=== PATIENT | male | born 1945 | race Caucasian/White ===

== ENCOUNTER → 2017-02-22 | Outpatient (CLI) | payer MEDICARE, OTHER ==
[2017-02-22 08:19] LABS: PLATELET COUNT, AUTOMATED 235 K/uL (150-450)
== END ==
LOC: LAB 07:49
PROVIDERS: ATTEND Nurse Practitioner Family
DX: Z79.899 Other long term (current) drug therapy (principal); E03.9 Hypothyroidism, unspecified; I10 Essential (primary) hypertension; N40.1 Benign prostatic hyperplasia with lower urinary tract symptoms
CPT/HCPCS: 36415; 82040; 82247; 82310; 82374; 82435; 82465; 82565; 82947; 83718; 84075; 84132; 84153; 84155; 84295; 84443; 84450; 84460; 84478; 84520; 85025

== ENCOUNTER → 2017-02-22 | Outpatient (CLI) | payer MEDICARE, OTHER | LOC: LAB 07:44 | PROVIDERS: ATTEND Internal Medicine Cardiovascular Disease | DX: I10 Essential (primary) hypertension (principal); E78.5 Hyperlipidemia, unspecified | CPT/HCPCS: 82465; 83718; 84478 ==

== ENCOUNTER → 2017-05-29 | Outpatient (CLI) | payer MEDICARE, OTHER | LOC: LAB 10:50 | PROVIDERS: ATTEND Nurse Practitioner Family | DX: E03.9 Hypothyroidism, unspecified (principal) | CPT/HCPCS: 84443 ==

== ENCOUNTER → 2017-05-29 | Outpatient (CLI) | payer MEDICARE, OTHER | LOC: LAB 10:48 | PROVIDERS: ATTEND Internal Medicine Cardiovascular Disease | DX: I10 Essential (primary) hypertension (principal) | CPT/HCPCS: 36415; 82310; 82374; 82435; 82565; 82947; 84132; 84295; 84520 ==

== ENCOUNTER → 2017-07-11 | Outpatient (CLI) | payer MEDICARE, OTHER ==
[2017-07-11 11:19] LABS: PLATELET COUNT, AUTOMATED 307 K/uL (150-450)
--- NOTE | 2017-07-11 11:28 | RADIOLOGY IMAGING REPORT ---
[place] [facility] [place] Rafiq Gunter : 1945 MR: [id number] V: [id number] EXAM DATE: ORDERING PHYSICIAN: ALIZE ALDRIDGE TECHNOLOGIST: Location: [facility] [place] Patient: Rafiq Gunter : 1945 Visit/Account:[id number] Date of Sevice: 07/11/2017 Exam type: CHEST PA AND LAT History: Cough and not feeling lump x1 month Comparison: None. Findings: There is mild hyperinflation lung canela with flattening the hemidiaphragms. There is no evidence of focal infiltrates, pleural effusions or overt pulmonary edema. There are sternotomy sutures present and a prosthetic cardiac valve. There are mild spondylotic changes of the thoracic spine IMPRESSION: 1. Mild hyperinflation lung canela though no evidence of acute consolidation Postsurgical changes from a sternotomy with cardiac valve Report Dictated By: Charmaine Long MD at 07/11/2017 11:23 AM Report E-Signed By: Charmaine Long MD at 07/11/2017 11:24 AM WSN:[email or web address]
== END ==
LOC: RAD 10:47
PROVIDERS: ATTEND Nurse Practitioner Family
DX: R91.8 Other nonspecific abnormal finding of lung field (principal); I10 Essential (primary) hypertension; R50.9 Fever, unspecified; R06.00 Dyspnea, unspecified; R53.83 Other fatigue
CPT/HCPCS: 36415; 71046; 82040; 82247; 82310; 82374; 82435; 82565; 82947; 84075; 84132; 84155; 84295; 84450; 84460; 84520; 85025

== ENCOUNTER 2017-07-16 17:48 | Emergency (ER) | payer MEDICARE, OTHER ==
--- NOTE | 2017-07-16 17:56 | ER Report ---
History and Physical Time Seen By MD: 17:56 HPI/ROS CHIEF COMPLAINT: Fever, chills, weakness, 5 weeks HISTORY OF PRESENT ILLNESS: 71-year-old male presents with chest pain radiating to his back and both arms for 45 minutes. Patient feels particularly ill. He' s been sick for 5 weeks. He's been seen by primary care in he's had 2 courses of antibiotics, which he finished the last one week ago. He's been having night sweats. Reports a 10 pound weight loss. He continues to have a cough of mostly clear sputum. He notes generalized body fatigued. He notes no leg swelling or calf pain. He notes no nausea or vomiting. He's had no diarrhea. Patient's past medical history significant for an aortic valve replacement in 2009. He's not had any problems with that. His cardiology recently started him on lisinopril in addition to his amlodipine to lower his blood pressure to the new stander but he became grossly hypotensive with a pressure in the 90s. His lisinopril was discontinued. Patient had a chest x-ray couple weeks ago here after he was sent in by primary care for evaluation of his lungs REVIEW OF SYSTEMS: Respiratory: As above Cardiovascular: As above Gastrointestinal: No vomiting, no abdominal pain. Musculoskeletal: No back pain. Allergies: Coded Allergies: No Known Drug Allergies (Unverified , 07/16/17) Home Meds Reported Medications Lisinopril (LISINOPRIL) 10 Mg Tablet, 10 MG PO QDAY, TAB 07/16/17 Clopidogrel Bisulfate (CLOPIDOGREL) 75 Mg Tablet, 1 TAB PO QDAY, TAB 07/16/17 Rosuvastatin Calcium (CRESTOR) 40 Mg Tablet, 40 MG PO QDAY 07/16/17 Fenofibric Acid (Choline) (FENOFIBRIC ACID) 135 Mg Capsule.dr, 145 MG 07/16/17 Amlodipine Besylate (AMLODIPINE BESYLATE) 10 Mg Tablet, 1 TAB PO QDAY, TAB 07/16/17 Metformin Hcl (METFORMIN HCL) 500 Mg Tablet, 1 TAB PO QDAY, TAB 07/16/17 Levothyroxine Sodium (LEVOTHYROXINE SODIUM) 100 Mcg Tablet, 150 MCG PO QDAY, TAB 07/16/17 Reviewed Nurses Notes: Yes Old Medical Records Reviewed: Yes Constitutional Vital Sign - Last 24 Hours 07/16/17 07/16/17 07/16/17/5/18 17:52 18:30 19:00 19:30 Temp 98.4 Pulse 84 84 80 76 Resp 16 12 14 16 B/P (MAP) 195/160 (172) 146/81 (102) 147/95 (112) Pulse Ox 94 94 96 96 07/16/17 07/16/17 07/16/17 07/16/17 20:00 20:30 21:30 21:35 Pulse 77 75 73 73 Resp 16 15 30 B/P (MAP) 150/87 (108) 136/66 (89) Pulse Ox 95 96 95 07/16/17 07/16/17 07/16/17 07/16/17 21:50 22:20 22:35 22:40 Pulse 73 72 71 69 Resp 23 27 28 10 Pulse Ox 95 96 96 96 07/16/17 07/16/17 07/16/17 07/16/17 22:55 23:00 23:15 23:30 Pulse 70 69 71 68 Resp 9 10 12 B/P (MAP) 131/85 (100) 110/94 (99) Pulse Ox 96 96 96 96 Physical Exam General Appearance: The patient is alert, has no immediate need for airway protection and no current signs of toxicity.. Moderate distress, steady pale appearing, skin warm and dry HEENT: Pupils equal and round no injection. Oropharynx without redness or exudate, mucous members are moist Respiratory: Chest is non tender, lungs are clear to auscultation. No wheezing or rails Cardiac: regular rate and rhythm Gastrointestinal: Abdomen is soft and non tender, no masses, bowel sounds normal. Musculoskeletal: Neck: Neck is supple and non tender. No JVD, no lymphadenopathy Extremities have full range of motion and are non tender. No edema, no calf tenderness Skin: No rashes or lesions. DIFFERENTIAL DIAGNOSIS: After history and physical exam differential diagnosis was considered for chest pain including but not limited to myocardial ischemia, pericarditis pulmonary embolus, chest wall pain, pleural inflammation and pulmonary infectious causes. Medical Decision Making Data Points Result Diagram: 07/16/17180807/16/171808 Laboratory Hematology Test 07/16/17 18:09 07/16/17 18:23 07/16/17 22:05 Red Blood Count 4.86 M/uL (4.00-5.60) Mean Corpuscular Volume 85.8 fL (80.0-96.0) Mean Corpuscular Hemoglobin 29.2 pg (26.0-33.0) Mean Corpuscular Hemoglobin Concent 34.0 g/dL (32.0-36.0) Red Cell Distribution Width 14.2 % (11.5-14.5) Mean Platelet Volume 6.4 fL (7.2-11.1) Neutrophils (%) (Auto) 81.3 % (39.4-72.5) Lymphocytes (%) (Auto) 12.3 % (17.6-49.6) Monocytes (%) (Auto) 5.4 % (4.1-12.4) Eosinophils (%) (Auto) 0.5 % (0.4-6.7) Basophils (%) (Auto) 0.5 % (0.3-1.4) Nucleated RBC Relative Count (auto) 0.0 /100WBC Neutrophils # (Auto) 7.9 K/uL (2.0-7.4) Lymphocytes # (Auto) 1.2 K/uL (1.3-3.6) Monocytes # (Auto) 0.5 K/uL (0.3-1.0) Eosinophils # (Auto) 0.0 K/uL (0.0-0.5) Basophils # (Auto) 0.1 K/uL (0.0-0.1) Nucleated RBC Absolute Count (auto) 0.00 K/uL Erythrocyte Sedimentation Rate 24 mm/HOUR (0-20) D-Dimer Quantitative (PE/DVT) 1.85 ug/ml (0-0.50) Sodium Level 140 mmol/L (137-145) Potassium Level 3.9 mmol/L (3.5-5.0) Chloride Level 102 mmol/L (98-107) Carbon Dioxide Level 22 mmol/L (22-30) Blood Urea Nitrogen 16 mg/dl (9-21) Creatinine 1.20 mg/dl (0.66-1.25) Glomerular Filtration Rate Calc > 60.0 Random Glucose 119 mg/dl (75-110) Calcium Level 9.4 mg/dl (8.4-10.2) Total Bilirubin 0.6 mg/dl (0.2-1.3) Aspartate Amino Transf (AST/SGOT) 36 U/L (0-35) Alanine Aminotransferase (ALT/SGPT) 58 U/L (0-56) Alkaline Phosphatase 90 U/L (0-126) C-Reactive Protein 3.1 mg/dl (<1.0) B-Type Natriuretic Peptide 446 pg/ml (0-100) Total Protein 7.8 gm/dl (6.3-8.2) Albumin 4.0 g/dl (3.5-5.0) Urine Color Yellow Urine Clarity Clear Urine pH 5.0 pH (4.8-9.5) Urine Specific [place] 1.017 Urine Protein Negative mg/dL (NEGATIVE) Urine Glucose (UA) Negative mg/dL (NEGATIVE) Urine Ketones Negative mg/dL (NEGATIVE) Urine Blood Negative (NEGATIVE) Urine Nitrite Negative (NEGATIVE) Urine Bilirubin Negative (NEGATIVE) Urine Urobilinogen Negative mg/dL (0.2-1.9) Urine Leukocyte Esterase Negative (NEGATIVE) Urine RBC 1 /HPF (0-2/HPF) Urine WBC 1 /HPF (0-5/HPF) Urine Squamous Epithelial Cells Few /LPF (</=FEW) Urine Bacteria Negative /HPF (NONE-FEW) Urine Hyaline Casts Few /LPF (NONE-FEW) Urine Mucus Few /HPF (NONE-FEW) Troponin I 0.090 ng/ml Chemistry Test 07/16/17 18:09 07/16/17 18:23 07/16/17 22:05 White Blood Count 9.7 k/uL (4.5-11.0) Red Blood Count 4.86 M/uL (4.00-5.60) Hemoglobin 14.2 g/dL (14.0-18.0) Hematocrit 41.7 % (42.0-52.0) Mean Corpuscular Volume 85.8 fL (80.0-96.0) Mean Corpuscular Hemoglobin 29.2 pg (26.0-33.0) Mean Corpuscular Hemoglobin Concent 34.0 g/dL (32.0-36.0) Red Cell Distribution Width 14.2 % (11.5-14.5) Platelet Count 332 K/uL (150-450) Mean Platelet Volume 6.4 fL (7.2-11.1) Neutrophils (%) (Auto) 81.3 % (39.4-72.5) Lymphocytes (%) (Auto) 12.3 % (17.6-49.6) Monocytes (%) (Auto) 5.4 % (4.1-12.4) Eosinophils (%) (Auto) 0.5 % (0.4-6.7) Basophils (%) (Auto) 0.5 % (0.3-1.4) Nucleated RBC Relative Count (auto) 0.0 /100WBC Neutrophils # (Auto) 7.9 K/uL (2.0-7.4) Lymphocytes # (Auto) 1.2 K/uL (1.3-3.6) Monocytes # (Auto) 0.5 K/uL (0.3-1.0) Eosinophils # (Auto) 0.0 K/uL (0.0-0.5) Basophils # (Auto) 0.1 K/uL (0.0-0.1) Nucleated RBC Absolute Count (auto) 0.00 K/uL Erythrocyte Sedimentation Rate 24 mm/HOUR (0-20) D-Dimer Quantitative (PE/DVT) 1.85 ug/ml (0-0.50) Glomerular Filtration Rate Calc > 60.0 Calcium Level 9.4 mg/dl (8.4-10.2) Total Bilirubin 0.6 mg/dl (0.2-1.3) Aspartate Amino Transf (AST/SGOT) 36 U/L (0-35) Alanine Aminotransferase (ALT/SGPT) 58 U/L (0-56) Alkaline Phosphatase 90 U/L (0-126) C-Reactive Protein 3.1 mg/dl (<1.0) B-Type Natriuretic Peptide 446 pg/ml (0-100) Total Protein 7.8 gm/dl (6.3-8.2) Albumin 4.0 g/dl (3.5-5.0) Urine Color Yellow Urine Clarity Clear Urine pH 5.0 pH (4.8-9.5) Urine Specific [place] 1.017 Urine Protein Negative mg/dL (NEGATIVE) Urine Glucose (UA) Negative mg/dL (NEGATIVE) Urine Ketones Negative mg/dL (NEGATIVE) Urine Blood Negative (NEGATIVE) Urine Nitrite Negative (NEGATIVE) Urine Bilirubin Negative (NEGATIVE) Urine Urobilinogen Negative mg/dL (0.2-1.9) Urine Leukocyte Esterase Negative (NEGATIVE) Urine RBC 1 /HPF (0-2/HPF) Urine WBC 1 /HPF (0-5/HPF) Urine Squamous Epithelial Cells Few /LPF (</=FEW) Urine Bacteria Negative /HPF (NONE-FEW) Urine Hyaline Casts Few /LPF (NONE-FEW) Urine Mucus Few /HPF (NONE-FEW) Troponin I 0.090 ng/ml Coagulation Test 07/16/17 18:09 D-Dimer Quantitative (PE/DVT) 1.85 ug/ml Urinalysis Test 07/16/17 18:23 Urine Color Yellow Urine Clarity Clear Urine pH 5.0 pH (4.8-9.5) Urine Specific [place] 1.017 Urine Protein Negative mg/dL (NEGATIVE) Urine Glucose (UA) Negative mg/dL (NEGATIVE) Urine Ketones Negative mg/dL (NEGATIVE) Urine Blood Negative (NEGATIVE) Urine Nitrite Negative (NEGATIVE) Urine Bilirubin Negative (NEGATIVE) Urine Urobilinogen Negative mg/dL (0.2-1.9) Urine Leukocyte Esterase Negative (NEGATIVE) Urine RBC 1 /HPF (0-2/HPF) Urine WBC 1 /HPF (0-5/HPF) Urine Squamous Epithelial Cells Few /LPF (</=FEW) Urine Bacteria Negative /HPF (NONE-FEW) Urine Hyaline Casts Few /LPF (NONE-FEW) Urine Mucus Few /HPF (NONE-FEW) EKG/Imaging EKG Interpretation 12 lead EK Rhythm: Normal sinus rhythm [place]: normal QRS: normal ST segments: normal, no old for comparison, no evidence of ischemia or dysrhythmia, diffuse nonspecific ST-T wave abnormality 12 lead EK Rhythm: normal sinus rhythm [place]: normal QRS: normal ST segments: normal, resolution of the ST abnormality from noted in the 1st EKG Imaging Results: CT scan of the CTA pulmonary angiogram and CT abdomen and pelvis with contrast was obtained. The results of the study are Examination: CT chest pulmonary angiogram and CT abdomen and pelvis with contrast Comparison: None. History: fever night sweats wt loss elevated d-dimer Procedure: Pulmonary arterial phase imaging of the chest followed by routine venous phase imaging of the abdomen and pelvis with 75 mL intravenous Isovue 370. Reconstruction of the source data set includes multiplanar 2D in the sagittal and coronal planes, and 3D reconstructed coronal slab MIP series. One of the following dose optimization techniques was utilized in the performance of this exam: Automated exposure control; adjustment of the mA and/ or kV according to the patient's size; or use of an iterative reconstruction technique. Specific details can be referenced in the facility's radiology CT exam operational policy. Findings: CT pulmonary angiogram: Pulmonary vasculature: Adequate quality contrast bolus for the diagnosis of pulmonary embolism. No pulmonary embolism. Main pulmonary artery size is normal. Cardiac and mediastinum: Cardiac chamber size is normal. No pericardial effusion. Mild coronary calcifications. Aortic valve replacement. Borderline dilated 4.0 cm ascending thoracic aorta. No thoracic lymph node enlargement. Lungs and pleura: Benign-appearing 6 mm fissural nodule along the right minor fissure. No consolidation or suspicious nodule is otherwise identified. No pneumothorax, edema, or effusion. Airways: Negative. Diaphragm: Negative. CT abdomen and pelvis: Liver: Negative. Gallbladder and biliary system: Negative Spleen: Negative. Pancreas: Negative. Adrenal glands: Negative. Kidneys and bladder: No renal mass or evidence of an obstructive uropathy. Urinary bladder is unremarkable. Vessels: Moderate aortoiliac atherosclerosis. No abdominal aortic aneurysm. Portal venous system and IVC are within normal limits. Bowel and mesentery: Tiny hiatal hernia. No gastric distention. No small bowel obstruction or inflammation. Appendix is unremarkable. Small amount stool in the colon. There are a few diverticula along the left hemicolon. No bowel or mesenteric inflammation. Pelvic organs: Mildly enlarged and heterogeneous prostate. Lymph nodes: No adenopathy. Free air/free fluid: None. Abdominal wall: Tiny fat-containing umbilical hernia. Small bilateral fat- containing inguinal hernias. No acute findings. Osseous structures: Minimal degenerative change in the thoracolumbar spine. Sternotomy. No acute findings. IMPRESSION: 1. No pulmonary embolism or evidence of acute cardiopulmonary disease. 2. No findings of acute disease in the abdomen or pelvis. 3. Nonacute findings as described above. The study was read by the radiologist. I viewed the images myself on the PACS system. ED Course/Re-evaluation Clinical Indication for ER IV: Hydration ED Course Patient was admitted to an examination room. H&P was done. The differential diagnoses was considered. On clinical examination. Patient is acute onset of substernal chest pain radiating to his back and bilateral arms. His initial EKG shows nonspecific T waves. There is no evidence of gross ischemia. Patient has no previous EKGs for comparison. Patient's other significant history. He is type II diabetes, hyperlipidemia and aortic valve replacement in 2009. Patient describes 5 weeks of illness with fever and chills. He said night sweats and weight loss. He was seen by his primary care. He had a chest x-ray and 07/11/17 which was unremarkable. Patient received 2 courses of antibiotics last which he finished approximately one week ago. Patient's initial troponin was in the middle of the indeterminate zone. His troponin was elevated, so a CT pulmonary angiogram was ordered. Shortly a abdomen and pelvis with runoff contrast were performed to rule out occult malignancy as the cause of his night sweats. Blood cultures were drawn. His sedimentation rate is mildly elevated at 24. His CRP is mildly elevated as well. His white count was normal, but he is a left shift on his differential. CTA pulmonary angiogram and abdomen and pelvis were unremarkable for acute pathologic findings. A PPD was placed on his arm. Repeat 4 hour troponin, has doubled from 0.04 0.090. 07/16/2017 10:53:30 pm case was discussed with hospitalist, Dr. Chauhan at [facility] who accepts the patient. Her facility to cardiac floor bed. Decision to Disposition Date: Jul 16, 2017 Decision to Disposition Time: 22:44 Depart Departure Latest Vital Signs Vital Signs Date Time Temp Pulse Resp B/P (MAP) Pulse Ox O2 Delivery O2 Flow Rate FiO2 07/16/17 23:30 68 12 110/94 (99) 96 07/16/17 17:52 98.4 Impression: Primary Impression: Acute coronary syndrome Additional Impressions: Elevated troponin H/O aortic valve replacement Elevated d-dimer Type II diabetes mellitus Hyperlipidemia Condition: Improved Disposition: XFER TO ACUTE CARE HOSPITAL Referrals: ALIZE ALDRIDGE APRN (PCP) Problem Qualifiers Additional Impressions: Type II diabetes mellitus Diabetes mellitus rn long term care insulin use: without rn long term care use Diabetes mellitus complication status: without complication Qualified Codes: E11.9 - Type 2 diabetes mellitus without complications Hyperlipidemia Hyperlipidemia type: unspecified Qualified Codes: E78.5 - Hyperlipidemia, unspecified LINCOLN DELGADO DO Jul 16, 2017 17:56
[2017-07-16] MEDS ORDERED: TUBERCULIN PURIF PROT DERIV ID ONE (18:05)
[2017-07-16] MEDS ORDERED: LEVO-3 PO (18:07)
[2017-07-16] MEDS ORDERED: METF-411 PO (18:08)
[2017-07-16] MEDS ORDERED: LISI-362 PO (18:12)
[2017-07-16] MEDS ORDERED: ROSU40TA18 PO (18:12)
[2017-07-16] MEDS ORDERED: FENO135C (18:12)
[2017-07-16] MEDS ORDERED: CLOP75TA PO (18:12)
[2017-07-16] MEDS ORDERED: AMLO-99 PO (18:12)
[2017-07-16 18:26] LABS: PLATELET COUNT, AUTOMATED 332 K/uL (150-450)
[2017-07-16] MEDS ORDERED: KETOROLAC 30 MG/ML VIAL IVP ONE (18:40)
[2017-07-16] MEDS ORDERED: ONDANSETRON 4 MG/2 ML VIAL IVP ONE (18:40)
[2017-07-16] MEDS ORDERED: ASPIRIN 81 MG CHEW PO ONE (18:40)
[2017-07-16] MEDS ORDERED: fentaNYL CITR 100 MCG/2 ML AMP IVP ONE (18:40)
[2017-07-16] MEDS ORDERED: NS 0.9% 25 ML BAG 50 ML ONE (19:03)
[2017-07-16] MEDS ORDERED: IOPAMIDOL 76% 75 ML INFUS BTL 75 ML ONE (19:03)
--- NOTE | 2017-07-16 20:06 | RADIOLOGY IMAGING REPORT ---
[place] [facility] [place] Rafiq Gunter : 1945 MR: [id number] V: [id number] EXAM DATE: ORDERING PHYSICIAN: LINCOLN DELGADO TECHNOLOGIST: Location: [facility] Patient: Rafiq Gunter : 1945 Visit/Account:[id number] Date of Sevice: 07/16/2017 Examination: CT chest pulmonary angiogram and CT abdomen and pelvis with contrast Comparison: None. History: fever night sweats wt loss elevated d-dimer Procedure: Pulmonary arterial phase imaging of the chest followed by routine venous phase imaging of the abdomen and pelvis with 75 mL intravenous Isovue 370. Reconstruction of the source data set inclu yenny multiplanar 2D in the sagittal and coronal planes, and 3D reconstructed coronal slab MIP series. One of the following dose optimization techniques was utilized in the performance of this exam: Autom ated exposure control; adjustment of the mA and/or kV according to the patient's size; or use of an i terative reconstruction technique. Specific details can be referenced in the facility's radiology C T exam operational policy. Findings: CT pulmonary angiogram: Pulmonary vasculature: Adequate quality contrast bolus for the diagnosis of pulmonary embolism. No p ulmonary embolism. Main pulmonary artery size is normal. Cardiac and mediastinum: Cardiac chamber size is normal. No pericardial effusion. Mild coronary calci fications. Aortic valve replacement. Borderline dilated 4.0 cm ascending thoracic aorta. No thoracic lymph node enlargement. Lungs and pleura: Benign-appearing 6 mm fissural nodule along the right minor fissure. No consolidati on or suspicious nodule is otherwise identified. No pneumothorax, edema, or effusion. Airways: Negative. Diaphragm: Negative. CT abdomen and pelvis: Liver: Negative. Gallbladder and biliary system: Negative Spleen: Negative. Pancreas: Negative. Adrenal glands: Negative. Kidneys and bladder: No renal mass or evidence of an obstructive uropathy. Urinary bladder is unrema rkable. Vessels: Moderate aortoiliac atherosclerosis. No abdominal aortic aneurysm. Portal venous system and IVC are within normal limits. Bowel and mesentery: Tiny hiatal hernia. No gastric distention. No small bowel obstruction or inflamm ation. Appendix is unremarkable. Small amount stool in the colon. There are a few diverticula along t he left hemicolon. No bowel or mesenteric inflammation. Pelvic organs: Mildly enlarged and heterogeneous prostate. Lymph nodes: No adenopathy. Free air/free fluid: None. Abdominal wall: Tiny fat-containing umbilical hernia. Small bilateral fat-containing inguinal hernias . No acute findings. Osseous structures: Minimal degenerative change in the thoracolumbar spine. Sternotomy. No acute find ings. IMPRESSION: 1. No pulmonary embolism or evidence of acute cardiopulmonary disease. 2. No findings of acute disease in the abdomen or pelvis. 3. Nonacute findings as described above. Report Dictated By: Minesh Mays MD at 07/16/2017 7:48 PM Report E-Signed By: Minesh Mays MD at 07/16/2017 8:04 PM WSN:[id number]
--- NOTE | 2017-07-16 20:07 | RADIOLOGY IMAGING REPORT ---
FACILITY: [facility] - [place] PATIENT NAME: Rafiq Gunter : 1945 MR: [id number] V: [id number] EXAM DATE: ORDERING PHYSICIAN: LINCOLN DELGADO TECHNOLOGIST: Location: [facility] - [place] Patient: Rafiq Gunter : 1945 Visit/Account:[id number] Date of Sevice: 07/16/2017 Examination: CT chest pulmonary angiogram and CT abdomen and pelvis with contrast Comparison: None. History: fever night sweats wt loss elevated d-dimer Procedure: Pulmonary arterial phase imaging of the chest followed by routine venous phase imaging of the abdomen and pelvis with 75 mL intravenous Isovue 370. Reconstruction of the source data set inclu yenny multiplanar 2D in the sagittal and coronal planes, and 3D reconstructed coronal slab MIP series. One of the following dose optimization techniques was utilized in the performance of this exam: Autom ated exposure control; adjustment of the mA and/or kV according to the patient's size; or use of an i terative reconstruction technique. Specific details can be referenced in the facility's radiology C T exam operational policy. Findings: CT pulmonary angiogram: Pulmonary vasculature: Adequate quality contrast bolus for the diagnosis of pulmonary embolism. No p ulmonary embolism. Main pulmonary artery size is normal. Cardiac and mediastinum: Cardiac chamber size is normal. No pericardial effusion. Mild coronary calci fications. Aortic valve replacement. Borderline dilated 4.0 cm ascending thoracic aorta. No thoracic lymph node enlargement. Lungs and pleura: Benign-appearing 6 mm fissural nodule along the right minor fissure. No consolidati on or suspicious nodule is otherwise identified. No pneumothorax, edema, or effusion. Airways: Negative. Diaphragm: Negative. CT abdomen and pelvis: Liver: Negative. Gallbladder and biliary system: Negative Spleen: Negative. Pancreas: Negative. Adrenal glands: Negative. Kidneys and bladder: No renal mass or evidence of an obstructive uropathy. Urinary bladder is unrema rkable. Vessels: Moderate aortoiliac atherosclerosis. No abdominal aortic aneurysm. Portal venous system and IVC are within normal limits. Bowel and mesentery: Tiny hiatal hernia. No gastric distention. No small bowel obstruction or inflamm ation. Appendix is unremarkable. Small amount stool in the colon. There are a few diverticula along t he left hemicolon. No bowel or mesenteric inflammation. Pelvic organs: Mildly enlarged and heterogeneous prostate. Lymph nodes: No adenopathy. Free air/free fluid: None. Abdominal wall: Tiny fat-containing umbilical hernia. Small bilateral fat-containing inguinal hernias . No acute findings. Osseous structures: Minimal degenerative change in the thoracolumbar spine. Sternotomy. No acute find ings. IMPRESSION: 1. No pulmonary embolism or evidence of acute cardiopulmonary disease. 2. No findings of acute disease in the abdomen or pelvis. 3. Nonacute findings as described above. Report Dictated By: Minesh Mays MD at 07/16/2017 7:48 PM Report E-Signed By: Minesh Mays MD at 07/16/2017 8:04 PM [id number]
[2017-07-16] MEDS ORDERED: HYDROmorphone* 1 MG/ML 1 MG/ML ML IVP ONE (20:25)
[2017-07-16 23:30] VITALS: BP 110/94
--- NOTE | 2017-07-17 01:16 | EKG ---
FACILITY: [facility] - [place] PATIENT NAME: KEREN ANDREA : [id number] MR: [id number] V: [id number] EXAM DATE: ORDERING PHYSICIAN: LINCOLN DELGADO TECHNOLOGIST: Test Reason : Blood Pressure : / mmHG Vent. Rate : 085 BPM Atrial Rate : 085 BPM P-R Int : 180 ms QRS Dur : 078 ms QT Int : 350 ms P-R-T Axes : 050 059 081 degrees QTc Int : 416 ms Normal sinus rhythm Nonspecific ST abnormality Abnormal ECG No previous ECGs available Confirmed by THEE RHOADES ([id number]) on 07/17/2017 6:30:29 AM Referred By: Confirmed By:THEE RHOADES
--- NOTE | 2017-07-17 01:16 | EKG ---
FACILITY: [facility] PATIENT NAME: KEREN ANDREA : [id number] MR: [id number] V: [id number] EXAM DATE: ORDERING PHYSICIAN: LINCOLN DELGADO TECHNOLOGIST: MARCIANO Hughes Reason : REPEAT Blood Pressure : / mmHG Vent. Rate : 070 BPM Atrial Rate : 070 BPM P-R Int : 178 ms QRS Dur : 086 ms QT Int : 440 ms P-R-T Axes : 043 034 062 degrees QTc Int : 475 ms Normal sinus rhythm Normal ECG When compared with ECG of 16-JUL-2017 17:58, QT has lengthened Confirmed by THEE RHOADES ([id number]) on 07/17/2017 6:30:36 AM Referred By: Confirmed By:THEE RHOADES
== END 2017-07-16 23:45 | disposition short-term general hospital (02) ==
LOC: ER 18:19
DX: I24.9 Acute ischemic heart disease, unspecified (principal); R79.89 Other specified abnormal findings of blood chemistry; D68.9 Coagulation defect, unspecified; E11.9 Type 2 diabetes mellitus without complications; E78.5 Hyperlipidemia, unspecified; R05 Cough; Z95.2 Presence of prosthetic heart valve
CPT/HCPCS: 36415; 71275; 74177; 81001; 83880; 84484; 85025; 85379; 85651; 86140; 86580; 87040; 93005; 96374; 96375; 99284; A9270; J1170; J1885; J2405; J3010; Q9967; 82040; 82247; 82310; 82374; 82435; 82565; 82947; 84075; 84132; 84155; 84295; 84450; 84460; 84520

== ENCOUNTER → 2017-07-16 | Outpatient (CLI) | payer MEDICARE, OTHER ==
[~2017-07-16] MED LIST: AMLO-99 PO; CLOP75TA PO; FENO135C; LEVO-3 PO; LISI-362 PO; METF-411 PO; METO50TA19 PO; ROSU40TA18 PO
== END ==
LOC: AMB 23:30
PROVIDERS: ATTEND Nurse Practitioner
DX: I21.4 Non-ST elevation (NSTEMI) myocardial infarction (principal); I24.9 Acute ischemic heart disease, unspecified; R79.89 Other specified abnormal findings of blood chemistry; E11.9 Type 2 diabetes mellitus without complications; I10 Essential (primary) hypertension
CPT/HCPCS: A0425; A0426; A0888

== ENCOUNTER 2017-07-19 09:50 | Emergency (ER) | payer MEDICARE, OTHER ==
[~2017-07-19 09:50] MED LIST changes: -METO50TA19 PO
--- NOTE | 2017-07-19 09:54 | ER Report ---
History and Physical Time Seen By MD: 09:53 HPI/ROS This is a 71-year-old male with a history of hypertension and diabetes. Also with a history of alcohol use. He presents to the emergency department today with ongoing relapsing fevers for the past 4-5 weeks. He was treated with 2 antibiotics at the onset of his illness when his symptoms continued he presented to the emergency department approximately one week ago. At that time he was found to have an NSTEMI and was transferred to the [facility]. While admitted he had a full cardiac workup including a cardiac catheterization, and an echocardiogram. He also had an extensive fever workup to include an infectious disease consult as well as a full body CT scan to evaluate for malignancy. His workup at [facility] was essentially negative. He continued to have generalized weakness, night sweats, lack of appetite, and fevers. One blood culture bottle taken from the emergency department here days ago grew gram-positive cocci in clusters. The multiple blood cultures taken at [facility] have not grown anything to date. He no longer has chest pain, but continues to have fevers weakness and weight loss. 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 Remainder of the 14 system rev: Yes Allergies: Coded Allergies: No Known Drug Allergies (Unverified , 07/16/17) Home Meds Reported Medications Metoprolol Succinate (METOPROLOL SUCCINATE) 50 Mg Tab.er.24h, 1 TAB PO QDAY, TAB 07/19/17 Clopidogrel Bisulfate (CLOPIDOGREL) 75 Mg Tablet, 1 TAB PO QDAY, TAB 07/16/17 Rosuvastatin Calcium (CRESTOR) 40 Mg Tablet, 40 MG PO QDAY 07/16/17 Fenofibric Acid (Choline) (FENOFIBRIC ACID) 135 Mg Capsule.dr, 145 MG 07/16/17 Amlodipine Besylate (AMLODIPINE BESYLATE) 10 Mg Tablet, 1 TAB PO QDAY, TAB 07/16/17 Metformin Hcl (METFORMIN HCL) 500 Mg Tablet, 1 TAB PO QDAY, TAB 07/16/17 Levothyroxine Sodium (LEVOTHYROXINE SODIUM) 100 Mcg Tablet, 150 MCG PO QDAY, TAB 07/16/17 Discontinued Reported Medications Lisinopril (LISINOPRIL) 10 Mg Tablet, 10 MG PO QDAY, TAB 07/16/17 Reviewed Nurses Notes: Yes Old Medical Records Reviewed: Yes Hx Smoking: No Smoking Status: Never Smoker Hx Substance Use Disorder: No Family History of: HTN, Diabetes, Cardiac Constitutional Vital Sign - Last 24 Hours 07/19/17 07/19/17 07/19/17 07/19/17 09:50 09:54 09:55 09:58 Temp 98.6 Pulse ??? 91 Resp 16 B/P (MAP) 111/70 (84) 111/70 99/70 (80) Pulse Ox 94 O2 Delivery Room Air 07/19/17 07/19/17 07/19/17 07/19/17 10:00 10:05 10:12 10:15 Pulse 90 Resp 21 B/P (MAP) 95/70 (78) 98/70 (79) 99/63 (75) Pulse Ox 94 07/19/17 07/19/17 07/19/17 07/19/17 10:20 10:30 10:35 10:45 Pulse 93 88 Resp 14 20 B/P (MAP) 99/65 (76) 119/72 (88) Pulse Ox 93 93 07/19/17 07/19/17 07/19/17 07/19/17 10:50 11:00 11:05 11:15 Pulse 79 82 Resp 20 6 B/P (MAP) ???/??? (1665) 119/77 (91) Pulse Ox 96 93 07/19/17 07/19/17 07/19/17 07/19/17 11:20 11:30 11:35 11:45 Pulse 82 83 Resp 19 21 B/P (MAP) 120/77 (91) 120/80 (93) Pulse Ox 94 94 07/19/17 07/19/17 07/19/17 07/19/17 11:50 12:00 12:05 12:15 Pulse 76 82 Resp 17 23 B/P (MAP) 128/84 (99) 114/65 (81) Pulse Ox 93 95 07/19/17 07/19/17 07/19/17 07/19/17 12:20 12:30 12:35 12:45 Pulse 83 85 Resp 20 21 B/P (MAP) 114/73 (87) 120/84 (96) Pulse Ox 97 94 07/19/17 07/19/17 07/19/17 07/19/17 13:00 13:05 13:15 13:20 Pulse 85 79 Resp 12 20 B/P (MAP) 114/70 (85) 120/82 (95) Pulse Ox 96 92 07/19/17 07/19/17 07/19/17 07/19/17 13:30 13:35 13:45 13:50 Temp 101.5 Pulse 87 Resp 24 B/P (MAP) 112/71 (85) 107/64 (78) Pulse Ox 92 07/19/17 07/19/17 07/19/17 07/19/17 13:50 14:00 14:05 14:15 Pulse 87 90 Resp 14 16 B/P (MAP) 107/70 (82) 117/70 (86) Pulse Ox 94 93 07/19/17 07/19/17 07/19/17 07/19/17 14:20 14:30 14:33 14:35 Temp 98.9 Pulse 89 92 Resp 23 20 B/P (MAP) 118/72 (87) Pulse Ox 96 95 07/19/17 07/19/17 07/19/17 07/19/17 14:45 14:50 15:00 15:05 Pulse 93 86 Resp 24 11 B/P (MAP) 101/66 (78) 116/74 (88) Pulse Ox 94 88 07/19/17 07/19/17 07/19/17 07/19/17 15:11 15:15 15:20 15:30 Temp 100.7 Pulse 85 Resp 14 B/P (MAP) 112/73 (86) 114/63 (80) Pulse Ox 92 07/19/17 07/19/17 07/19/17 15:35 15:45 16:20 Temp 98.9 Pulse 85 Resp 23 B/P (MAP) 110/68 (82) Pulse Ox 92 Intake and Output 07/19/17 07/19/17 07/20/17 14:59 22:59 06:59 Intake Total 1000 ml Balance 1000 ml Physical Exam General Appearance: The patient is alert, has no immediate need for airway protection and no current signs of toxicity. Eyes: Pupils equal and round no injection. Respiratory: Chest is non tender, lungs are clear to auscultation. Cardiac: regular rate and rhythm Gastrointestinal: Abdomen is soft and non tender, no masses, bowel sounds normal. Musculoskeletal: Neck: Neck is supple and non tender. Extremities have full range of motion and are non tender. Skin: No rashes or lesions. DIFFERENTIAL DIAGNOSIS: After history and physical exam differential diagnosis was considered for adult fever including but not limited to viral syndromes including influenza, urinary tract infection, pneumonia and sepsis. Medical Decision Making Data Points Result Diagram: 07/19/17 1613 07/19/17 1111 Laboratory Hematology Test 07/19/17 11:11 07/19/17 12:38 07/19/17 12:47 07/19/17 16:13 Neutrophils (%) (Auto) 86.5 % (39.4-72.5) Lymphocytes (%) (Auto) 7.6 % (17.6-49.6) Monocytes (%) (Auto) 5.7 % (4.1-12.4) Eosinophils (%) (Auto) 0.0 % (0.4-6.7) Basophils (%) (Auto) 0.2 % (0.3-1.4) Nucleated RBC Relative Count (auto) 0.0 /100WBC Neutrophils # (Auto) 8.7 K/uL (2.0-7.4) Lymphocytes # (Auto) 0.8 K/uL (1.3-3.6) Monocytes # (Auto) 0.6 K/uL (0.3-1.0) Eosinophils # (Auto) 0.0 K/uL (0.0-0.5) Basophils # (Auto) 0.0 K/uL (0.0-0.1) Nucleated RBC Absolute Count (auto) 0.00 K/uL Erythrocyte Sedimentation Rate 16 mm/HOUR (0-20) Sodium Level 136 mmol/L (137-145) Potassium Level 3.9 mmol/L (3.5-5.0) Chloride Level 101 mmol/L (98-107) Carbon Dioxide Level 23 mmol/L (22-30) Blood Urea Nitrogen 15 mg/dl (9-21) Creatinine 1.20 mg/dl (0.66-1.25) Glomerular Filtration Rate Calc > 60.0 Random Glucose 128 mg/dl (75-110) Lactate 1.9 mmol/L (0.7-2.1) Calcium Level 8.7 mg/dl (8.4-10.2) Total Bilirubin 0.5 mg/dl (0.2-1.3) Aspartate Amino Transf (AST/SGOT) 38 U/L (0-35) Alanine Aminotransferase (ALT/SGPT) 39 U/L (0-56) Alkaline Phosphatase 63 U/L (0-126) C-Reactive Protein 5.6 mg/dl (<1.0) Total Protein 6.8 gm/dl (6.3-8.2) Albumin 3.3 g/dl (3.5-5.0) CSF Appearance Clear (CLEAR) CSF Color Colorless (COLORLESS) CSF WBC 9 /mm3 (0-5) CSF RBC 2 /mm3 CSF Glucose 60 mg/dl CSF Total Protein 38 mg/dl (15-50) Urine Color Yellow Urine Clarity Clear Urine pH 6.0 pH (4.8-9.5) Urine Specific [place] 1.017 Urine Protein Negative mg/dL (NEGATIVE) Urine Glucose (UA) Negative mg/dL (NEGATIVE) Urine Ketones Negative mg/dL (NEGATIVE) Urine Blood Negative (NEGATIVE) Urine Nitrite Negative (NEGATIVE) Urine Bilirubin Negative (NEGATIVE) Urine Urobilinogen 2.0 mg/dL (0.2-1.9) Urine Leukocyte Esterase Negative (NEGATIVE) Urine RBC 3 /HPF (0-2/HPF) Urine WBC 1 /HPF (0-5/HPF) Urine Squamous Epithelial Cells None /LPF (</=FEW) Urine Bacteria Negative /HPF (NONE-FEW) Urine Hyaline Casts Few /LPF (NONE-FEW) Urine Mucus Few /HPF (NONE-FEW) Red Blood Count 4.00 M/uL (4.00-5.60) Mean Corpuscular Volume 84.6 fL (80.0-96.0) Mean Corpuscular Hemoglobin 29.9 pg (26.0-33.0) Mean Corpuscular Hemoglobin Concent 35.3 g/dL (32.0-36.0) Red Cell Distribution Width 14.2 % (11.5-14.5) Mean Platelet Volume 6.2 fL (7.2-11.1) Neutrophils % (Manual) 88 % (39.4-72.5) Lymphocytes % (Manual) 9 % (17.6-49.6) Monocytes % (Manual) 3 % (4.1-12.4) Eosinophils % (Manual) 0 % (0.4-6.7) Basophils % (Manual) 0 % (0.3-1.4) Chemistry Test 07/19/17 11:11 07/19/17 12:38 07/19/17 12:47 07/19/17 16:13 Neutrophils (%) (Auto) 86.5 % (39.4-72.5) Lymphocytes (%) (Auto) 7.6 % (17.6-49.6) Monocytes (%) (Auto) 5.7 % (4.1-12.4) Eosinophils (%) (Auto) 0.0 % (0.4-6.7) Basophils (%) (Auto) 0.2 % (0.3-1.4) Nucleated RBC Relative Count (auto) 0.0 /100WBC Neutrophils # (Auto) 8.7 K/uL (2.0-7.4) Lymphocytes # (Auto) 0.8 K/uL (1.3-3.6) Monocytes # (Auto) 0.6 K/uL (0.3-1.0) Eosinophils # (Auto) 0.0 K/uL (0.0-0.5) Basophils # (Auto) 0.0 K/uL (0.0-0.1) Nucleated RBC Absolute Count (auto) 0.00 K/uL Erythrocyte Sedimentation Rate 16 mm/HOUR (0-20) Glomerular Filtration Rate Calc > 60.0 Lactate 1.9 mmol/L (0.7-2.1) Calcium Level 8.7 mg/dl (8.4-10.2) Total Bilirubin 0.5 mg/dl (0.2-1.3) Aspartate Amino Transf (AST/SGOT) 38 U/L (0-35) Alanine Aminotransferase (ALT/SGPT) 39 U/L (0-56) Alkaline Phosphatase 63 U/L (0-126) C-Reactive Protein 5.6 mg/dl (<1.0) Total Protein 6.8 gm/dl (6.3-8.2) Albumin 3.3 g/dl (3.5-5.0) CSF Appearance Clear (CLEAR) CSF Color Colorless (COLORLESS) CSF WBC 9 /mm3 (0-5) CSF RBC 2 /mm3 CSF Glucose 60 mg/dl CSF Total Protein 38 mg/dl (15-50) Urine Color Yellow Urine Clarity Clear Urine pH 6.0 pH (4.8-9.5) Urine Specific [place] 1.017 Urine Protein Negative mg/dL (NEGATIVE) Urine Glucose (UA) Negative mg/dL (NEGATIVE) Urine Ketones Negative mg/dL (NEGATIVE) Urine Blood Negative (NEGATIVE) Urine Nitrite Negative (NEGATIVE) Urine Bilirubin Negative (NEGATIVE) Urine Urobilinogen 2.0 mg/dL (0.2-1.9) Urine Leukocyte Esterase Negative (NEGATIVE) Urine RBC 3 /HPF (0-2/HPF) Urine WBC 1 /HPF (0-5/HPF) Urine Squamous Epithelial Cells None /LPF (</=FEW) Urine Bacteria Negative /HPF (NONE-FEW) Urine Hyaline Casts Few /LPF (NONE-FEW) Urine Mucus Few /HPF (NONE-FEW) White Blood Count 8.4 k/uL (4.5-11.0) Red Blood Count 4.00 M/uL (4.00-5.60) Hemoglobin 11.9 g/dL (14.0-18.0) Hematocrit 33.8 % (42.0-52.0) Mean Corpuscular Volume 84.6 fL (80.0-96.0) Mean Corpuscular Hemoglobin 29.9 pg (26.0-33.0) Mean Corpuscular Hemoglobin Concent 35.3 g/dL (32.0-36.0) Red Cell Distribution Width 14.2 % (11.5-14.5) Platelet Count 226 K/uL (150-450) Mean Platelet Volume 6.2 fL (7.2-11.1) Neutrophils % (Manual) 88 % (39.4-72.5) Lymphocytes % (Manual) 9 % (17.6-49.6) Monocytes % (Manual) 3 % (4.1-12.4) Eosinophils % (Manual) 0 % (0.4-6.7) Basophils % (Manual) 0 % (0.3-1.4) Urinalysis Test 07/19/17 12:47 Urine Color Yellow Urine Clarity Clear Urine pH 6.0 pH (4.8-9.5) Urine Specific [place] 1.017 Urine Protein Negative mg/dL (NEGATIVE) Urine Glucose (UA) Negative mg/dL (NEGATIVE) Urine Ketones Negative mg/dL (NEGATIVE) Urine Blood Negative (NEGATIVE) Urine Nitrite Negative (NEGATIVE) Urine Bilirubin Negative (NEGATIVE) Urine Urobilinogen 2.0 mg/dL (0.2-1.9) Urine Leukocyte Esterase Negative (NEGATIVE) Urine RBC 3 /HPF (0-2/HPF) Urine WBC 1 /HPF (0-5/HPF) Urine Squamous Epithelial Cells None /LPF (</=FEW) Urine Bacteria Negative /HPF (NONE-FEW) Urine Hyaline Casts Few /LPF (NONE-FEW) Urine Mucus Few /HPF (NONE-FEW) Microbiology Microbiology Date/Time Source Procedure Growth Status 07/19/17 12:38 Cerebrospinal Fluid Gram Stain - Final Resulted 07/19/17 12:38 Cerebrospinal Fluid CSF Culture Pending Resulted ED Course/Re-evaluation Clinical Indication for ER IV: Hydration, IV Access ED Course 71-year-old male presents to the emergency department with continued relapsing fevers, weight loss, night sweats, and generalized weakness ongoing for the past 4-5 weeks. He was recently admitted to [facility] where he had a full cardiac workup to include a cardiac catheterization and an echo as well as an infectious disease consult and full body scan to evaluate for a malignancy. He essentially had a negative workup. He was called this morning by our staff after one blood culture bottle grew gram-positive cocci in clusters. I also performed a lumbar puncture which was essentially negative for evidence of infection or any other abnormality. I spoke with our hospitalist Dr. Posada at [facility], and he reviewed the patient's full workup. My concern was a subacute endocarditis given his prosthetic heart valve and relapsing fevers. He has not had any other blood cultures positive for growth, and a transthoracic echo showed normal valves. He did not have a RACIEL. Dr. Posada said a RACIEL would only be completed if more growth came from additional blood culture bottles or if the positive blood culture ended up being staph species. I also spoke with the oncologist at the [facility]. He suggested a flow cytometry study to evaluate for any potential leukemia or lymphoma. That study is negative he can follow-up with the cancer center. Otherwise the patient can follow-up with the [facility] early next week for the results of the pending studies. I will also contact [facility] this weekend to brief her on the case. Procedure Procedure: Lumbar puncture. Indication: relapsing fevers After verbal informed consent from the patient explaining the risks including infection, bleeding, and neurologic damage, a lumbar puncture was performed after the patient was prepped and draped in the usual fashion. The back was anesthetized with 1% lidocaine. Approximately 4 cc of clear fluid was obtained. Opening pressure was not obtained. There were no complications. The procedure was performed by myself. Decision to Disposition Date: Jul 19, 2017 Decision to Disposition Time: 16:20 Depart Departure Latest Vital Signs Vital Signs Date Time Temp Pulse Resp B/P (MAP) Pulse Ox O2 Delivery O2 Flow Rate FiO2 07/19/17 16:20 98.9 07/19/17 15:45 110/68 (82) 07/19/17 15:35 85 23 92 07/19/17 09:55 Room Air Impression: Primary Impression: Relapsing fever Condition: Improved Disposition: HOME OR SELF-CARE Referrals: NILSA BERNAL APRN (PCP) Patient Instructions: Fever in Adults (ED) Additional Instructions: Call [facility] 1st thing Saturday morning to discuss the results of the peripheral blood smear. SHAMEKA DOYLE MD Jul 19, 2017 09:53
[2017-07-19] MEDS ORDERED: METO50TA19 PO (10:02)
[2017-07-19] MEDS ORDERED: NS(*) 0.9% 1000 ML BAG 1,000 ML IV ONE (10:45)
[2017-07-19 11:20] LABS: PLATELET COUNT, AUTOMATED 229 K/uL (150-450)
[2017-07-19] MEDS ORDERED: NS(*) 0.9% 500 ML BAG 500 ML IV ONE (13:40)
[2017-07-19] MEDS ORDERED: ACETAMINOPHEN 500 MG TAB PO ONE (14:15)
[2017-07-19] MEDS ORDERED: VANCOMYCIN 1 GM ADDVIAL 1 GM in NS(*) 0.9% 250 ML ADDVAN BAG 250 ML IVPB ONE (14:30)
[2017-07-19] MEDS ORDERED: GENTAMICIN/NS 80 MG/100 ML PB 100 ML IVPB ONE (14:30)
[2017-07-19 16:19] LABS: PLATELET COUNT, AUTOMATED 226 K/uL (150-450)
[2017-07-19 16:51] VITALS: BP 119/76
== END 2017-07-19 17:05 | disposition home or self-care (01) ==
LOC: ER 09:51
DX: A68.9 Relapsing fever, unspecified (principal)
CPT/HCPCS: 36415; 62270; 81001; 82945; 83605; 84157; 85007; 85025; 85027; 85651; 86140; 86592; 86788; 86789; 87040; 87070; 87088; 87205; 89050; 96361; 96365; 96366; 99284; A9270; J3370; J7030; J7040; J7050; 82040; 82247; 82310; 82374; 82435; 82565; 82947; 84075; 84132; 84155; 84295; 84450; 84460; 84520; 88184; 88185; 88189

== ENCOUNTER 2017-07-20 11:06 | Emergency (ER) | payer MEDICARE, OTHER ==
[~2017-07-20 11:06] MED LIST changes: +METO50TA19 PO
--- NOTE | 2017-07-20 11:13 | ER Report ---
History and Physical Time Seen By MD: 11:12 HPI/ROS This is a 71-year-old male with a past medical history significant for an aortic valve replacement in 2009. Since his 3rd presentation to the emergency department for relapsing fevers. He presented approximately 1-1/2 weeks ago, and was transferred to [facility] due to an NSTEMI. He had an extensive cardiac workup as well as an infectious disease workup while at [facility]. His initial test were negative and he was discharged. He will return to the emergency department yesterday complaining of generalized fatigue and weakness and continued relapsing fevers. Also noted that one of the blood cultures drawn here on July 16 was positive for gram positive cocci in clusters. Given his continued relapsing fevers and his prosthetic valve, I considered an undiagnosed endocarditis. I gave him a dose of vancomycin in the emergency department yesterday. I spoke with a hospitalist at [facility] yesterday, and the plan was to wait and see if any other blood cultures turned positive before committing to a diagnosis of endocarditis and a RACIEL. He was discharged home yesterday evening after receiving 1 dose of vancomycin. This morning another blood culture bottle from July 16 revealed gram-positive rods. I called [facility] to speak with an infectious disease webmethods consultant. Spoke with Dr. Ledbetter who already being of the patient because 4 sets of blood cultures taken at [facility] also came back positive this morning. I called the patient to come back to the emergency department to receive another dose of vancomycin and transferred to [facility] for definitive treatment of endocarditis. Allergies: Coded Allergies: No Known Drug Allergies (Unverified , 07/16/17) Home Meds Reported Medications Metoprolol Succinate (METOPROLOL SUCCINATE) 50 Mg Tab.er.24h, 1 TAB PO QDAY, TAB 07/19/17 Clopidogrel Bisulfate (CLOPIDOGREL) 75 Mg Tablet, 1 TAB PO QDAY, TAB 07/16/17 Rosuvastatin Calcium (CRESTOR) 40 Mg Tablet, 40 MG PO QDAY 07/16/17 Fenofibric Acid (Choline) (FENOFIBRIC ACID) 135 Mg Capsule.dr, 145 MG 07/16/17 Amlodipine Besylate (AMLODIPINE BESYLATE) 10 Mg Tablet, 1 TAB PO QDAY, TAB 07/16/17 Metformin Hcl (METFORMIN HCL) 500 Mg Tablet, 1 TAB PO QDAY, TAB 07/16/17 Levothyroxine Sodium (LEVOTHYROXINE SODIUM) 100 Mcg Tablet, 150 MCG PO QDAY, TAB 07/16/17 Discontinued Reported Medications Lisinopril (LISINOPRIL) 10 Mg Tablet, 10 MG PO QDAY, TAB 07/16/17 Reviewed Nurses Notes: Yes Old Medical Records Reviewed: Yes Hx Smoking: No Smoking Status: Never Smoker Hx Substance Use Disorder: No Hx Alcohol Use: Yes (often ) Constitutional Vital Sign - Last 24 Hours 07/20/17 11:12 Temp 98.1 Pulse 83 Resp 18 B/P (MAP) 103/71 Pulse Ox 94 O2 Delivery Room Air Physical Exam General Appearance: The patient is alert, has no immediate need for airway protection and no current signs of toxicity. Eyes: Pupils equal and round no injection. Respiratory: Chest is non tender, lungs are clear to auscultation. Cardiac: regular rate and rhythm Gastrointestinal: Abdomen is soft and non tender, no masses, bowel sounds normal. Musculoskeletal: Neck: Neck is supple and non tender. Extremities have full range of motion and are non tender. Skin: No rashes or lesions. DIFFERENTIAL DIAGNOSIS: After history and physical exam differential diagnosis was considered for adult fever including but not limited to viral syndromes including influenza, urinary tract infection, pneumonia and sepsis. Medical Decision Making ED Course/Re-evaluation ED Course 71-year-old male who was called back to the emergency department today after multiple blood cultures drawn in the past week and a half has now revealed gram positive rides. He likely has endocarditis. He did get 1 dose of vancomycin at approximately 1600 yesterday, so I called him to the emergency department to get another dose of vancomycin before proceeding to [facility] for admission and definitive care for endocarditis in the setting of a prosthetic aortic valve. He is currently stable although still experiencing fevers, generalized weakness and fatigue. I spoke with the infectious disease physician at [facility] who is well aware of the patient and will see him as a consult when he arrives today for admission. The patient asked if his could drive him to [facility]. I told him the risks and benefits but I think he is safe to go into POV at this time. Decision to Disposition Date: Jul 20, 2017 Decision to Disposition Time: 11:40 Depart Departure Latest Vital Signs Vital Signs Date Time Temp Pulse Resp B/P (MAP) Pulse Ox O2 Delivery O2 Flow Rate FiO2 07/20/17 11:12 98.1 83 18 103/71 94 Room Air Impression: Primary Impression: Endocarditis Condition: Improved Disposition: XFER TO ACUTE CARE HOSPITAL Referrals: ALIZE ALDRIDGE APRN (PCP) Additional Instructions: GO DIRECTLY TO THE [facility]. UPON ARRIVAL GO TO ADMISSIONS , AND TELL THEM THAT YOU HAVE A ROOM ASSIGNED ([id number]). DR. HERRERA IS THE ACCEPTING PHYSICIAN Problem Qualifiers Primary Impression: Endocarditis Endocarditis type: infective Infective endocarditis organism: bacterial Chronicity: subacute Qualified Codes: I33.0 - Acute and subacute infective endocarditis SHAMEKA DOYLE MD Jul 20, 2017 11:12
[2017-07-20] MEDS ORDERED: VANCOMYCIN 1 GM ADDVIAL 1 GM in NS(*) 0.9% 250 ML ADDVAN BAG 250 ML IVPB ONE (11:15)
[2017-07-20] MEDS ORDERED: ACETAMINOPHEN 500 MG TAB PO ONE (12:20)
[2017-07-20 12:30] VITALS: BP 105/71
== END 2017-07-20 12:52 | disposition short-term general hospital (02) ==
LOC: ER 11:34
DX: I33.0 Acute and subacute infective endocarditis (principal)
CPT/HCPCS: 96365; 99283; A9270; J3370; J7050

== ENCOUNTER 2017-08-07 08:31 | Emergency (ER) | payer MEDICARE, OTHER ==
--- NOTE | 2017-08-07 08:46 | ER Report ---
History and Physical Time Seen By MD: 08:42 Hx. of Stated Complaint: PT HERE THIS AM FOR IV ABO FOR ENDOCARDITIS, BP HIGH AT THAT TIME, WENT HOME AND NOTICED BP WAS NOT GETTING ANY BETTER AND IS NOW HAVING TIGHTENING IN CHEST, DENIES CHEST PAIN, NO RADIATING FACTORS HPI/ROS CHIEF COMPLAINT: Chest tightness and elevated blood pressure HISTORY OF PRESENT ILLNESS: This is a 71 year old male. He has a history of endocarditis with a prosthetic aortic valve. Currently on Vancomycin treatment, finished 1 week of an 8 week course. Noted this morning during the infusion of the antibiotics that his blood pressure was very elevated. Went home and took his morning Amlodipine, but pressures have remained high. Also feeling some chest tightness. No shortness of breath. No nausea. Otherwise feels okay. No dizziness. Takes Lisinopril and Metoprolol at night. No fevers or chills. Allergies: Coded Allergies: No Known Drug Allergies (Unverified , 07/16/17) Home Meds Reported Medications Rifampin (RIFAMPIN) 600 Mg Vial, 600 MG IV, VIAL 08/07/17 Metoprolol Succinate (METOPROLOL SUCCINATE) 50 Mg Tab.er.24h, 1 TAB PO QDAY, TAB 07/19/17 Clopidogrel Bisulfate (CLOPIDOGREL) 75 Mg Tablet, 1 TAB PO QDAY, TAB 07/16/17 Rosuvastatin Calcium (CRESTOR) 40 Mg Tablet, 40 MG PO QDAY 07/16/17 Fenofibric Acid (Choline) (FENOFIBRIC ACID) 135 Mg Capsule.dr, 145 MG 07/16/17 Amlodipine Besylate (AMLODIPINE BESYLATE) 10 Mg Tablet, 1 TAB PO QDAY, TAB 07/16/17 Metformin Hcl (METFORMIN HCL) 500 Mg Tablet, 1 TAB PO QDAY, TAB 07/16/17 Levothyroxine Sodium (LEVOTHYROXINE SODIUM) 100 Mcg Tablet, 150 MCG PO QDAY, TAB 07/16/17 Reviewed Nurses Notes: Yes Hx Smoking: No Smoking Status: Never Smoker Exposure to Second Hand Smoke?: No Hx Substance Use Disorder: No Hx Alcohol Use: Yes (often ) Constitutional Vital Sign - Last 24 Hours 08/07/17 08/07/17 08/07/17 08/07/17 08:35 08:35 08:36 09:00 Temp 98.6 Pulse 69 70 Resp 16 28 B/P (MAP) 168/97 (120) 168/97 156/92 (113) Pulse Ox 95 95 08/07/17 08/07/17 08/07/17 08/07/17 09:01 09:15 09:21 09:30 Pulse 68 71 Resp 28 26 B/P (MAP) 157/105 (122) 164/109 (127) Pulse Ox 93 94 08/07/17 08/07/17 08/07/17 08/07/17 09:31 09:45 09:46 10:00 Pulse 71 69 Resp 15 28 B/P (MAP) 156/97 (116) 175/107 (129) Pulse Ox 96 94 08/07/17 08/07/17 08/07/17 08/07/17 10:01 10:15 10:16 10:30 Pulse 72 73 Resp 26 22 B/P (MAP) 167/99 (121) 154/91 (112) Pulse Ox 95 95 08/07/17 08/07/17 08/07/17 08/07/17 10:32 10:35 10:38 10:46 B/P (MAP) 167/99 (121) 162/100 (120) 158/99 (118) 152/95 (114) 08/07/17 08/07/17 08/07/17 08/07/17 10:58 11:00 11:13 11:20 Pulse 73 74 Resp 28 8 B/P (MAP) 163/104 (123) 156/95 (115) 08/07/17 08/07/17 08/07/17 08/07/17 11:40 11:58 12:00 12:13 Pulse 79 82 Resp 15 19 B/P (MAP) 142/88 (106) 140/84 (102) 08/07/17 08/07/17 08/07/17 08/07/17 12:20 12:25 12:40 12:55 Pulse 79 75 Resp 25 19 B/P (MAP) 141/87 (105) 137/89 (105) 08/07/17 08/07/17 08/07/17 08/07/17 13:00 13:25 13:40 13:55 Pulse 73 67 Resp 28 10 B/P (MAP) 144/89 (107) 151/104 (120) Pulse Ox 93 94 08/07/17 08/07/17 08/07/17/27/18 14:00 14:20 14:25 14:40 Pulse 67 Resp 19 B/P (MAP) 149/95 (113) 164/102 (122) 160/100 (120) Pulse Ox 92 08/07/17 14:55 Pulse 68 Resp 25 Pulse Ox 94 Physical Exam General Appearance: The patient is alert. No acute distress. Eyes: Pupils are equal, round. No pallor, injection or icterus. Reactive to light. ENT: Mucous membranes are moist. Normal oral mucosa. Posterior oropharynx is normal. Neck: Supple and non tender. Respiratory: Lungs are clear to auscultation. Cardiovascular: Regular rate and rhythm. No murmurs, gallops or rubs. Normal capillary refill. No edema. Gastrointestinal: Abdomen is soft. Nondistended. Neurological: Alert and oriented x3. Skin: Warm and dry. DIFFERENTIAL DIAGNOSIS: After history and physical exam, differential diagnosis was considered for chest pain including but not limited to myocardial ischemia, pericarditis, elevated blood pressure, pleural inflammation and pulmonary infectious causes. Medical Decision Making Data Points Result Diagram: 08/07/17 0855 08/07/17 0855 Laboratory Hematology Test 08/07/17 08:55 08/07/17 11:56 Red Blood Count 3.56 M/uL (4.00-5.60) Mean Corpuscular Volume 84.2 fL (80.0-96.0) Mean Corpuscular Hemoglobin 28.7 pg (26.0-33.0) Mean Corpuscular Hemoglobin Concent 34.1 g/dL (32.0-36.0) Red Cell Distribution Width 15.0 % (11.5-14.5) Mean Platelet Volume 6.0 fL (7.2-11.1) Neutrophils (%) (Auto) 76.1 % (39.4-72.5) Lymphocytes (%) (Auto) 13.0 % (17.6-49.6) Monocytes (%) (Auto) 8.7 % (4.1-12.4) Eosinophils (%) (Auto) 1.0 % (0.4-6.7) Basophils (%) (Auto) 1.2 % (0.3-1.4) Nucleated RBC Relative Count (auto) 0.0 /100WBC Neutrophils # (Auto) 6.2 K/uL (2.0-7.4) Lymphocytes # (Auto) 1.1 K/uL (1.3-3.6) Monocytes # (Auto) 0.7 K/uL (0.3-1.0) Eosinophils # (Auto) 0.1 K/uL (0.0-0.5) Basophils # (Auto) 0.1 K/uL (0.0-0.1) Nucleated RBC Absolute Count (auto) 0.00 K/uL Sodium Level 138 mmol/L (137-145) Potassium Level 3.8 mmol/L (3.5-5.0) Chloride Level 105 mmol/L (98-107) Carbon Dioxide Level 23 mmol/L (22-30) Blood Urea Nitrogen 16 mg/dl (9-21) Creatinine 1.10 mg/dl (0.66-1.25) Glomerular Filtration Rate Calc > 60.0 Random Glucose 97 mg/dl (75-110) Calcium Level 8.6 mg/dl (8.4-10.2) Total Bilirubin 0.5 mg/dl (0.2-1.3) Aspartate Amino Transf (AST/SGOT) 26 U/L (0-35) Alanine Aminotransferase (ALT/SGPT) 35 U/L (0-56) Alkaline Phosphatase 84 U/L (0-126) C-Reactive Protein 3.8 mg/dl (<1.0) Total Protein 6.7 g/dl (6.3-8.2) Albumin 3.1 g/dl (3.5-5.0) Troponin I 0.212 ng/ml Chemistry Test 08/07/17 08:55 08/07/17 11:56 White Blood Count 8.1 k/uL (4.5-11.0) Red Blood Count 3.56 M/uL (4.00-5.60) Hemoglobin 10.2 g/dL (14.0-18.0) Hematocrit 30.0 % (42.0-52.0) Mean Corpuscular Volume 84.2 fL (80.0-96.0) Mean Corpuscular Hemoglobin 28.7 pg (26.0-33.0) Mean Corpuscular Hemoglobin Concent 34.1 g/dL (32.0-36.0) Red Cell Distribution Width 15.0 % (11.5-14.5) Platelet Count 316 K/uL (150-450) Mean Platelet Volume 6.0 fL (7.2-11.1) Neutrophils (%) (Auto) 76.1 % (39.4-72.5) Lymphocytes (%) (Auto) 13.0 % (17.6-49.6) Monocytes (%) (Auto) 8.7 % (4.1-12.4) Eosinophils (%) (Auto) 1.0 % (0.4-6.7) Basophils (%) (Auto) 1.2 % (0.3-1.4) Nucleated RBC Relative Count (auto) 0.0 /100WBC Neutrophils # (Auto) 6.2 K/uL (2.0-7.4) Lymphocytes # (Auto) 1.1 K/uL (1.3-3.6) Monocytes # (Auto) 0.7 K/uL (0.3-1.0) Eosinophils # (Auto) 0.1 K/uL (0.0-0.5) Basophils # (Auto) 0.1 K/uL (0.0-0.1) Nucleated RBC Absolute Count (auto) 0.00 K/uL Glomerular Filtration Rate Calc > 60.0 Calcium Level 8.6 mg/dl (8.4-10.2) Total Bilirubin 0.5 mg/dl (0.2-1.3) Aspartate Amino Transf (AST/SGOT) 26 U/L (0-35) Alanine Aminotransferase (ALT/SGPT) 35 U/L (0-56) Alkaline Phosphatase 84 U/L (0-126) C-Reactive Protein 3.8 mg/dl (<1.0) Total Protein 6.7 g/dl (6.3-8.2) Albumin 3.1 g/dl (3.5-5.0) Troponin I 0.212 ng/ml EKG/Imaging EKG Interpretation 12 lead EKG: At 08:41 hours Rhythm: normal sinus rhythm, rate 68 [place]: normal QRS: normal ST segments: Nonspecific T-wave changes, no ST elevation or depression Compared to previous EKGs done here, and no significant differences noted. 12 lead EKG: At 12:56 hours Unchanged from previous Imaging CHEST PA AND LAT Additional pertinent History: Chest tightness COMPARISON STUDIES: 07/11/2017 FINDINGS: Support lines and catheters: Left arm PICC line well-positioned in the distal third aspect of the SVC. Lungs and Pleura: Interval development of atelectasis in the left lower lung. Heart and vasculature: Negative. Clarisse and Mediastinum: Negative. Bones and Chest wall: Negative. Upper Abdomen: Negative. IMPRESSION: 1. Well-positioned PICC line. 2. Interval development of atelectasis in the left lower lung. Report Dictated By: Antonio Meade MD at 08/07/2017 9:33 AM ED Course/Re-evaluation Clinical Indication for ER IV: IV Access ED Course Initial evaluation showed the blood pressure still elevated despite waiting to see if the amlodipine would bring it down. Because it did not, we went ahead and gave the patient some labetalol and this did do a good job of bringing the blood pressure down. Initial EKG unremarkable without any ST elevation or depression. Initial troponin came back elevated in the upper indeterminate range. I repeat troponin was done 3 hours later and did double and is in the critical range now. Chest tightness is gone. The patient was given aspirin 324 mg oral dose. Discussed the case with Dr. Nicholas [facility]. The patient has had recent cardiac catheterization and did not show any significant lesions. Discussed the case with the hospitalist and then called back and spoke with the hospitalist at [facility]. It was felt that the critical troponin would make it necessary for the patient to go to [facility] where there would be specialty evaluation for his endocarditis and valvular heart disease. The patient is requesting to go to [facility] by private vehicle despite recommendation for ambulance transport. He will go by POV with his driving. Decision to Disposition Date: Aug 07, 2017 Decision to Disposition Time: 13:55 Transfer Facility Patient was transferred to [facility] via private vehicle. The transfer was non-emergent, and was required because the capabilities of the receiving hospital. Consent for transfer was obtained from the patient. See EMTALA for transfer orders. Depart Departure Latest Vital Signs Vital Signs Date Time Temp Pulse Resp B/P (MAP) Pulse Ox O2 Delivery O2 Flow Rate FiO2 08/07/17 14:55 68 25 94 08/07/17 14:40 160/100 (120) 08/07/17 08:35 98.6 Impression: Primary Impression: Chest tightness Additional Impressions: Endocarditis Elevated troponin Condition: Condition Unchanged Disposition: XFER TO [facility] Referrals: ALIZE ALDRIDGE APRN (PCP) Problem Qualifiers Additional Impressions: Endocarditis Endocarditis type: infective Infective endocarditis organism: bacterial Chronicity: subacute Qualified Codes: I33.0 - Acute and subacute infective endocarditis TRICE FREEMAN MD Aug 07, 2017 08:46
[2017-08-07 09:06] LABS: PLATELET COUNT, AUTOMATED 316 K/uL (150-450)
--- NOTE | 2017-08-07 09:09 | EKG ---
[facility] PATIENT NAME: KEREN ANDREA : [id number] MR: [id number] V: [id number] EXAM DATE: ORDERING PHYSICIAN: TRICE FREEMAN TECHNOLOGIST: CARMELO Hughes Reason : Blood Pressure : / mmHG Vent. Rate : 068 BPM Atrial Rate : 068 BPM P-R Int : 164 ms QRS Dur : 086 ms QT Int : 428 ms P-R-T Axes : 029 039 052 degrees QTc Int : 455 ms Normal sinus rhythm Cannot rule out Anterior infarct , age undetermined Abnormal ECG When compared with ECG of 16-JUL-2017 22:46, No significant change was found Confirmed by MEG MATA ([id number]) on 08/07/2017 11:53:45 AM Referred By: LYDIA Confirmed By:MEG MATA
[2017-08-07] MEDS ORDERED: LABETALOL HCL 100 MG/20ML VIAL IVP ONE (09:35)
--- NOTE | 2017-08-07 09:46 | RADIOLOGY IMAGING REPORT ---
FACILITY: [facility] PATIENT NAME: Rafiq Gunter : 1945 MR: [id number] V: [id number] EXAM DATE: ORDERING PHYSICIAN: TRICE FREEMAN TECHNOLOGIST: Location: [facility] [place] Patient: Rafiq Gunter : 1945 Visit/Account:[id number] Date of Sevice: 08/07/2017 CHEST PA AND LAT Additional pertinent History: Chest tightness COMPARISON STUDIES: 07/11/2017 FINDINGS: Support lines and catheters: Left arm PICC line well-positioned in the distal third aspect of the SVC . Lungs and Pleura: Interval development of atelectasis in the left lower lung. Heart and vasculature: Negative. Clarisse and Mediastinum: Negative. Bones and Chest wall: Negative. Upper Abdomen: Negative. IMPRESSION: 1. Well-positioned PICC line. 2. Interval development of atelectasis in the left lower lung. Report Dictated By: Antonio Meade MD at 08/07/2017 9:33 AM Report E-Signed By: Antonio Meade MD at 08/07/2017 9:35 AM WSN:[id number]
[2017-08-07] MEDS ORDERED: [UNRECOGNIZED DRUG - CODE] IV (10:15)
[2017-08-07] MEDS ORDERED: ASPIRIN 81 MG CHEW PO ONE (12:55)
--- NOTE | 2017-08-07 13:01 | EKG ---
FACILITY: [facility] PATIENT NAME: KEREN ANDREA : [id number] MR: [id number] V: [id number] EXAM DATE: ORDERING PHYSICIAN: TRICE FREEMAN TECHNOLOGIST: CARMELO Hughes Reason : Blood Pressure : / mmHG Vent. Rate : 075 BPM Atrial Rate : 075 BPM P-R Int : 180 ms QRS Dur : 086 ms QT Int : 410 ms P-R-T Axes : 044 047 045 degrees QTc Int : 457 ms Normal sinus rhythm Cannot rule out Anterior infarct (cited on or before 07-AUG-2017) Abnormal ECG When compared with ECG of 07-AUG-2017 08:41, No significant change was found Confirmed by MEG MATA ([id number]) on 08/07/2017 6:53:44 PM Referred By: Confirmed By:MEG MATA
[2017-08-07 14:40] VITALS: BP 160/100
== END 2017-08-07 15:18 | disposition short-term general hospital (02) ==
LOC: ER 08:38
DX: I33.0 Acute and subacute infective endocarditis (principal); R07.89 Other chest pain; R79.89 Other specified abnormal findings of blood chemistry
CPT/HCPCS: 71046; 84484; 85025; 86140; 93005; 96374; 99284; A9270; J3490; 82040; 82247; 82310; 82374; 82435; 82565; 82947; 84075; 84132; 84155; 84295; 84450; 84460; 84520

== ENCOUNTER 2017-08-12 00:33 | Inpatient (IN) | payer MEDICARE, OTHER ==
[~2017-08-12] VITALS: Ht 175.3 cm; Wt 82.6 kg
[~2017-08-12 00:33] MED LIST changes: +[UNRECOGNIZED DRUG - CODE] IV
--- NOTE | 2017-08-12 00:38 | ER Report ---
History and Physical Time Seen By MD: 00:38 HPI/ROS CHIEF COMPLAINT: Left abdominal pain, left flank pain HISTORY OF PRESENT ILLNESS: 71-year-old male with a complex medical history. He has a prosthetic heart valve since 2009. He was recently diagnosed with endocarditis. Patient's also had several non-STEMI. Cardiac events. He's been transferred down to [facility] 3 times in the last month. Patient notes left upper quadrant and left flank pain since 11:30 PM last night. He took 2 aspirin at home. He's had some nausea and vomiting 1. He notes no change in bowel habits such as diarrhea or constipation. He notes no dysuria or frequency or hematuria. Patient scrapped the pain coming as a wave. Patient reports she had a similar pain during his last admission at [facility]. His doctors told him that diagnostic studies suggested he had some problems with his spleen related to his endocarditis REVIEW OF SYSTEMS: Respiratory: No cough, no dyspnea. Cardiovascular: No chest pain, no palpitations. Gastrointestinal: As above Musculoskeletal: As above Allergies: Coded Allergies: No Known Drug Allergies (Unverified , 08/12/17) Home Meds Reported Medications Lisinopril (LISINOPRIL) 40 Mg Tablet, 40 MG PO QDAY, TAB 08/12/17 Metformin Hcl (METFORMIN HCL) 1,000 Mg Tablet, 1 TAB PO DAILY 08/12/17 Levothyroxine Sodium (LEVOTHYROXINE SODIUM) 0.112 Mg Tab, 1 TAB PO DAILY 08/12/17 Metoprolol Tartrate (METOPROLOL TARTRATE) 25 Mg Tablet, 1 TAB PO BID 08/12/17 Rifampin (RIFAMPIN) 300 Mg Capsule, 1 CAP PO BID 08/12/17 Fenofibrate Nanocrystallized (FENOFIBRATE) 145 Mg Tablet, 1 TAB PO DAILY 08/12/17 Rosuvastatin Calcium (CRESTOR) 40 Mg Tablet, 40 MG PO QDAY 07/16/17 Amlodipine Besylate (AMLODIPINE BESYLATE) 10 Mg Tablet, 1 TAB PO QDAY, TAB 07/16/17 Discontinued Reported Medications Lisinopril (LISINOPRIL) 10 Mg Tablet, 1 TAB PO DAILY 08/12/17 Lisinopril (LISINOPRIL) 40 Mg Tablet, 40 MG PO QDAY, TAB 08/12/17 Rifampin (RIFAMPIN) 600 Mg Vial, 600 MG IV, VIAL 08/07/17 Metoprolol Succinate (METOPROLOL SUCCINATE) 50 Mg Tab.er.24h, 1 TAB PO QDAY, TAB 07/19/17 Clopidogrel Bisulfate (CLOPIDOGREL) 75 Mg Tablet, 1 TAB PO QDAY, TAB 07/16/17 Fenofibric Acid (Choline) (FENOFIBRIC ACID) 135 Mg Capsule.dr, 145 MG 07/16/17 Metformin Hcl (METFORMIN HCL) 500 Mg Tablet, 1 TAB PO QDAY, TAB 07/16/17 Levothyroxine Sodium (LEVOTHYROXINE SODIUM) 100 Mcg Tablet, 150 MCG PO QDAY, TAB 07/16/17 Reviewed Nurses Notes: Yes Old Medical Records Reviewed: Yes Hx Smoking: No Smoking Status: Never Smoker Exposure to Second Hand Smoke?: No Hx Substance Use Disorder: No Hx Alcohol Use: Yes (often ) Constitutional Vital Sign - Last 24 Hours 08/12/17 08/12/17 08/12/17 08/12/17 00:42 01:00 01:30 02:00 Temp 98.7 Pulse 80 75 80 76 Resp 14 14 15 12 B/P (MAP) 162/105 160/98 (118) 158/100 (119) Pulse Ox 94 95 87 90 O2 Delivery Room Air 08/12/17 02:30 Pulse 71 Resp 15 B/P (MAP) 167/106 (126) Pulse Ox 98 Physical Exam General Appearance: The patient is alert, has no immediate need for airway protection and no current signs of toxicity. Vital signs stable, afebrile, pulse ox normal HEENT: Pupils equal and round no injection. TMs normal, oropharynx Respiratory: Chest is non tender, lungs are clear to auscultation. Cardiac: regular rate and rhythm, no murmur Gastrointestinal: Abdomen is soft, mild left upper quadrant tenderness, no CVA tenderness, no masses, bowel sounds normal. Musculoskeletal: Neck: Neck is supple and non tender. No lymphadenopathy, no JVD Extremities have full range of motion and are non tender. No edema, no calf tenderness Skin: No rashes or lesions. DIFFERENTIAL DIAGNOSIS: After history and physical exam differential diagnosis was considered for abdominal pain including but not limited to appendicitis, cholecystitis, gastritis and urinary tract infection. Additionally,flank pain including but not limited to musculoskeletal causes, kidney stone, pyelonephritis, shingles, and intra-abdominal causes such as diverticulitis and appendicitis. Medical Decision Making Data Points Result Diagram: 08/12/17 0100 08/12/17 0518 Laboratory Hematology Test 08/12/17 01:00 08/12/17 02:30 Red Blood Count 3.72 M/uL (4.00-5.60) Mean Corpuscular Volume 82.9 fL (80.0-96.0) Mean Corpuscular Hemoglobin 29.0 pg (26.0-33.0) Mean Corpuscular Hemoglobin Concent 35.0 g/dL (32.0-36.0) Red Cell Distribution Width 15.1 % (11.5-14.5) Mean Platelet Volume 6.2 fL (7.2-11.1) Neutrophils (%) (Auto) 76.0 % (39.4-72.5) Lymphocytes (%) (Auto) 13.1 % (17.6-49.6) Monocytes (%) (Auto) 8.3 % (4.1-12.4) Eosinophils (%) (Auto) 1.3 % (0.4-6.7) Basophils (%) (Auto) 1.3 % (0.3-1.4) Nucleated RBC Relative Count (auto) 0.0 /100WBC Neutrophils # (Auto) 7.0 K/uL (2.0-7.4) Lymphocytes # (Auto) 1.2 K/uL (1.3-3.6) Monocytes # (Auto) 0.8 K/uL (0.3-1.0) Eosinophils # (Auto) 0.1 K/uL (0.0-0.5) Basophils # (Auto) 0.1 K/uL (0.0-0.1) Nucleated RBC Absolute Count (auto) 0.00 K/uL Prothrombin Time 14.8 seconds (12.0-14.4) Prothromb Time International Ratio 1.16 Activated Partial Thromboplast Time 29 seconds (23-35) Total Bilirubin 0.4 mg/dl (0.2-1.3) Aspartate Amino Transf (AST/SGOT) 24 U/L (0-35) Alanine Aminotransferase (ALT/SGPT) 26 U/L (0-56) Alkaline Phosphatase 82 U/L (0-126) Total Protein 6.8 g/dl (6.3-8.2) Albumin 3.2 g/dl (3.5-5.0) Amylase Level 81 U/L (0-110) Lipase 149 U/L (23-300) Urine Color Mari Urine Clarity Clear Urine pH 5.0 pH (4.8-9.5) Urine Specific [place] 1.017 Urine Protein Negative mg/dL (NEGATIVE) Urine Glucose (UA) Negative mg/dL (NEGATIVE) Urine Ketones Negative mg/dL (NEGATIVE) Urine Blood Negative (NEGATIVE) Urine Nitrite Negative (NEGATIVE) Urine Bilirubin Negative (NEGATIVE) Urine Urobilinogen Negative mg/dL (0.2-1.9) Urine Leukocyte Esterase Negative (NEGATIVE) Urine RBC 1 /HPF (0-2/HPF) Urine WBC 2 /HPF (0-5/HPF) Urine Squamous Epithelial Cells Moderate /LPF (</=FEW) Urine Bacteria Few /HPF (NONE-FEW) Urine Hyaline Casts Few /LPF (NONE-FEW) Urine Mucus Few /HPF (NONE-FEW) Chemistry Test 08/12/17 01:00 08/12/17 02:30 White Blood Count 9.2 k/uL (4.5-11.0) Red Blood Count 3.72 M/uL (4.00-5.60) Hemoglobin 10.8 g/dL (14.0-18.0) Hematocrit 30.9 % (42.0-52.0) Mean Corpuscular Volume 82.9 fL (80.0-96.0) Mean Corpuscular Hemoglobin 29.0 pg (26.0-33.0) Mean Corpuscular Hemoglobin Concent 35.0 g/dL (32.0-36.0) Red Cell Distribution Width 15.1 % (11.5-14.5) Platelet Count 313 K/uL (150-450) Mean Platelet Volume 6.2 fL (7.2-11.1) Neutrophils (%) (Auto) 76.0 % (39.4-72.5) Lymphocytes (%) (Auto) 13.1 % (17.6-49.6) Monocytes (%) (Auto) 8.3 % (4.1-12.4) Eosinophils (%) (Auto) 1.3 % (0.4-6.7) Basophils (%) (Auto) 1.3 % (0.3-1.4) Nucleated RBC Relative Count (auto) 0.0 /100WBC Neutrophils # (Auto) 7.0 K/uL (2.0-7.4) Lymphocytes # (Auto) 1.2 K/uL (1.3-3.6) Monocytes # (Auto) 0.8 K/uL (0.3-1.0) Eosinophils # (Auto) 0.1 K/uL (0.0-0.5) Basophils # (Auto) 0.1 K/uL (0.0-0.1) Nucleated RBC Absolute Count (auto) 0.00 K/uL Prothrombin Time 14.8 seconds (12.0-14.4) Prothromb Time International Ratio 1.16 Activated Partial Thromboplast Time 29 seconds (23-35) Total Bilirubin 0.4 mg/dl (0.2-1.3) Aspartate Amino Transf (AST/SGOT) 24 U/L (0-35) Alanine Aminotransferase (ALT/SGPT) 26 U/L (0-56) Alkaline Phosphatase 82 U/L (0-126) Total Protein 6.8 g/dl (6.3-8.2) Albumin 3.2 g/dl (3.5-5.0) Amylase Level 81 U/L (0-110) Lipase 149 U/L (23-300) Urine Color Mari Urine Clarity Clear Urine pH 5.0 pH (4.8-9.5) Urine Specific [place] 1.017 Urine Protein Negative mg/dL (NEGATIVE) Urine Glucose (UA) Negative mg/dL (NEGATIVE) Urine Ketones Negative mg/dL (NEGATIVE) Urine Blood Negative (NEGATIVE) Urine Nitrite Negative (NEGATIVE) Urine Bilirubin Negative (NEGATIVE) Urine Urobilinogen Negative mg/dL (0.2-1.9) Urine Leukocyte Esterase Negative (NEGATIVE) Urine RBC 1 /HPF (0-2/HPF) Urine WBC 2 /HPF (0-5/HPF) Urine Squamous Epithelial Cells Moderate /LPF (</=FEW) Urine Bacteria Few /HPF (NONE-FEW) Urine Hyaline Casts Few /LPF (NONE-FEW) Urine Mucus Few /HPF (NONE-FEW) Coagulation Test 08/12/17 01:00 Prothrombin Time 14.8 seconds Prothromb Time International Ratio 1.16 Activated Partial Thromboplast Time 29 seconds Urinalysis Test 08/12/17 02:30 Urine Color Mari Urine Clarity Clear Urine pH 5.0 pH (4.8-9.5) Urine Specific [place] 1.017 Urine Protein Negative mg/dL (NEGATIVE) Urine Glucose (UA) Negative mg/dL (NEGATIVE) Urine Ketones Negative mg/dL (NEGATIVE) Urine Blood Negative (NEGATIVE) Urine Nitrite Negative (NEGATIVE) Urine Bilirubin Negative (NEGATIVE) Urine Urobilinogen Negative mg/dL (0.2-1.9) Urine Leukocyte Esterase Negative (NEGATIVE) Urine RBC 1 /HPF (0-2/HPF) Urine WBC 2 /HPF (0-5/HPF) Urine Squamous Epithelial Cells Moderate /LPF (</=FEW) Urine Bacteria Few /HPF (NONE-FEW) Urine Hyaline Casts Few /LPF (NONE-FEW) Urine Mucus Few /HPF (NONE-FEW) EKG/Imaging EKG Interpretation 12 lead EK Rhythm: normal sinus rhythm [place]: normal QRS: normal ST segments: Diffuse T-wave flattening, comparison to previous EKG 08/07/17 Imaging X-ray: Single view portable chest x-ray was obtained. I viewed the images myself on the PACS system. My interpretation of the images is: No infiltrate, no effusion, PICC line in place. The radiologist interpretation had no clinically significant variation from this interpretation. ED Course/Re-evaluation Clinical Indication for ER IV: Hydration, IV Access ED Course Patient was admitted to an examination room. H&P is done. The differential diagnoses was considered. Patient with recurring chest pain throughout this last month. He's had elevated troponin. On several occasions. He's been sent down to [facility] ([place], [place]), and had a heart catheter 4 weeks ago, which is shown no changes. Patient was recently diagnosed with endocarditis. Patient complaining of left flank pain. It radiates to his back. Diagnostic evaluation is undertaken. Patient's EKG shows diffuse T-wave flattening. Compared to his previous EKG. Unfortunately, his troponin returned elevated at 0.273, which is higher than his previous troponin from approximately one week ago when he was transferred to [facility] ([place], [place]). Patient's H&H is stable compared to previous studies. Patient's urinalysis unremarkable. Patient on vancomycin and rifampin. He is unlikely to have a kidney infection. Patient has no diarrhea to suggest colitis as the etiology of the pain. 08/12/2017 2:18:51 am case discussed with cardiology on-call, Dr. Leslie, who reviewed the patient's records from his recent admit he was just discharged [address] Leslie thinks the patient to be monitored here with serial troponins. His recent heart catheter one month ago was unchanged. 08/12/2017 2:29:26 am case was discussed with Dr. Yulisa Scott hospitalist on- call, who agrees to admit the patient. For further observation. Patient realizes that there will be a low threshold to transfer. Should there be any worsening. Decision to Disposition Date: Aug 12, 2017 Decision to Disposition Time: 01:41 Depart Departure Latest Vital Signs Vital Signs Date Time Temp Pulse Resp B/P (MAP) Pulse Ox O2 Delivery O2 Flow Rate FiO2 08/12/17 02:30 71 15 167/106 (126) 98 08/12/17 00:42 98.7 Room Air Impression: Primary Impression: Chest pain Additional Impressions: Elevated troponin Endocarditis Condition: Improved Disposition: Admitted from ER Referrals: ALIZE ALDRIDGE APRN (PCP) Problem Qualifiers Primary Impression: Chest pain Chest pain type: unspecified Qualified Codes: R07.9 - Chest pain, unspecified Additional Impressions: Endocarditis Endocarditis type: infective Infective endocarditis organism: bacterial Chronicity: subacute Qualified Codes: I33.0 - Acute and subacute infective endocarditis LINCOLN DELGADO DO Aug 12, 2017 00:38
[2017-08-12] MEDS ORDERED: LISI-374 PO ×2 (00:42→03:49)
[2017-08-12] MEDS ORDERED: NS(*) 0.9% 1000 ML BAG 1,000 ML IV ONE (00:46)
[2017-08-12] MEDS ORDERED: ONDANSETRON 4 MG/2 ML VIAL IVP ONE (00:50)
[2017-08-12] MEDS ORDERED: fentaNYL CITR 100 MCG/2 ML AMP IVP ONE (00:50)
[2017-08-12 01:08] LABS: PLATELET COUNT, AUTOMATED 313 K/uL (150-450)
[2017-08-12 01:18] LABS: INR 1.16
--- NOTE | 2017-08-12 01:23 | EKG ---
FACILITY: [facility] PATIENT NAME: KEREN ANDREA : [id number] MR: [id number] V: [id number] EXAM DATE: ORDERING PHYSICIAN: LINCOLN DELGADO TECHNOLOGIST: CARMELO Hughes Reason : Blood Pressure : / mmHG Vent. Rate : 073 BPM Atrial Rate : 073 BPM P-R Int : 174 ms QRS Dur : 084 ms QT Int : 424 ms P-R-T Axes : 063 062 061 degrees QTc Int : 467 ms Normal sinus rhythm Nonspecific T wave abnormality Prolonged QT Abnormal ECG When compared with ECG of 07-AUG-2017 12:56, Nonspecific T wave abnormality now evident in Lateral leads Confirmed by WEST SCHILLING ([id number]) on 08/12/2017 9:00:27 AM Referred By: Confirmed By:WEST SCHILLING
[2017-08-12] MEDS ORDERED: MORPHINE 4 MG/ML SDV IVP ONE (01:40)
[2017-08-12] MEDS ORDERED: NITROGLYCERIN OINT 1 GM PKT TP ONE (01:40)
--- NOTE | 2017-08-12 02:29 | RADIOLOGY IMAGING REPORT ---
FACILITY: [facility] PATIENT NAME: Rafiq Gunter : 1945 MR: [id number] V: [id number] EXAM DATE: ORDERING PHYSICIAN: LINCOLN DELGADO TECHNOLOGIST: Location: [facility] [place] Patient: Rafiq Gunter : 1945 Visit/Account:[id number] Date of Sevice: 08/12/2017 PORTABLE CHEST: Indication: Upper abdominal pain. Technique: A single frontal film was obtained. Comparison: 08/07/2017 Lines and tubes: The PICC line remains in satisfactory position. Skeletal and soft tissue structures: Intact and unchanged. Heart and mediastinum: Stable. Lung canela: Well-expanded and clear. No focal opacities. No vascular congestion. Pleural spaces: Unremarkable. Impression: No acute process or significant change. Report Dictated By: Nick Ray MD at 08/12/2017 2:24 AM Report E-Signed By: Nick Ray MD at 08/12/2017 2:26 AM WSN:[id number]
[2017-08-12 02:56] VITALS: BP 157/99
[2017-08-12] MEDS ORDERED: FENO145T36 PO (03:19)
[2017-08-12] MEDS ORDERED: RIFA300C50 PO (03:20)
[2017-08-12] MEDS ORDERED: METO25TA93 PO (03:21)
[2017-08-12] MEDS ORDERED: LEV112 PO (03:23)
[2017-08-12] MEDS ORDERED: LISI-362 PO (03:25)
[2017-08-12] MEDS ORDERED: METF-421 PO (03:25)
[2017-08-12] MEDS ORDERED: ONDANSETRON 4 MG/2 ML VIAL IVP PRN (03:55)
[2017-08-12] MEDS ORDERED: MORPHINE 2 MG/ML SYR IVP PRN (04:00)
[2017-08-12] MEDS: NS(*) 0.9% 1000 ML BAG 1,000 ML IV PRN ×2 (04:27→15:49)
--- NOTE | 2017-08-12 05:10 | History & Physical ---
History of Present Illness Chief Complaint The patient is a 71 year old male with PMH significant for AVR in [address] [facility] with bovine valve. 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 Last evening he developed L flank pain that was very similar to the pain he had with his splenic infarct. History of Present Illness The patient states he underwent cardiac catheterization in 2009 prior to AVR and was found to have no significant blockages. He had an AVR with a bovine valve at that time. He did well until June of this year when he started having fever and night sweats. He was subsequently diagnosed with endocarditis as above. He was started on rifampin 300mg po bid and Vancomycin IV. He initially received 1.500g of Vanco bid and recently his dose was decreased to 1.25g bid as his trough increased to 23. He has been receiving his antibiotics through [facility]. He has a PICC line in place (07/27/17). He is followed by GIOVANI Gardner , at [facility]. His CV surgeon is Dr. Bryan Swenson and his truck driver rubbish collector is Dr. Pablo Carroll. His PCP is Alize Bernal APRN, at the [facility]. The patient developed chest pain and elevated troponin in early July of this year. He was transferred to [facility] on 07/20/17 and per the [facility] records, had a repeat cardiac cath that showed nonobstructive left dominant coronary arteries. His elevated troponin was felt to be due to hypertensive urgency. He was started on lisinopril 10mg daily in addition to his chronic metoprolol and amlodipine. He was discharged on 07/30/17. He once again developed chest pain and elevated troponin on 08/07/17 and was transferred back to [facility]. He had an echo performed that showed a normal EF with no wall motion abnormalities. Once again his elevated troponin was felt to be related to elevated BP. His lisinopril was increased from 10mg daily to 40mg daily at that time. 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 He was discharged from [facility] . Last evening he developed recurrence of his LUQ and L flank pain that he states is very similar to his pain associated with the recent splenic infarct. He presented to [facility] ER this am and work up revealed an elevated troponin at 0.27. BP was once again elevated. EKG was not significantly changed from previous EKGs. The patient denied associated shortness of breath. He did have some nausea that he felt was related to his pain. He was given IV Zofran and had nitropaste (1 inch) applied. His BP improved a bit, but his pain continued. Dr. Delgado discussed the case with Dr. Lan Leslie, truck driver rubbish collector, who recommended the patient be admitted to [facility] for ongoing monitoring of troponins and blood pressure. The patient was accepted for admission to the medical floor. On my interview, the patient continues to have significant LUQ pain and L flank pain. IV fentanyl given in the ER helped a bit. IV morphine did not help much. The patient notes that he was given oral oxycodone at [facility] and this was effective. He continues to deny shortness of breath and his nausea has improved after getting IV Zofran in ER. 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 (8) CVA (cerebral vascular accident) (9) History of aortic valve replacement with bioprosthetic valve (10) Infarction of spleen Status: Resolved Home Meds Reported Medications Lisinopril (LISINOPRIL) 40 Mg Tablet, 40 MG PO QDAY, TAB 08/12/17 Metformin Hcl (METFORMIN HCL) 1,000 Mg Tablet, 1 TAB PO DAILY 08/12/17 Levothyroxine Sodium (LEVOTHYROXINE SODIUM) 0.112 Mg Tab, 1 TAB PO DAILY 08/12/17 Metoprolol Tartrate (METOPROLOL TARTRATE) 25 Mg Tablet, 1 TAB PO BID 08/12/17 Rifampin (RIFAMPIN) 300 Mg Capsule, 1 CAP PO BID 08/12/17 Fenofibrate Nanocrystallized (FENOFIBRATE) 145 Mg Tablet, 1 TAB PO DAILY 08/12/17 Rosuvastatin Calcium (CRESTOR) 40 Mg Tablet, 40 MG PO QDAY 07/16/17 Amlodipine Besylate (AMLODIPINE BESYLATE) 10 Mg Tablet, 1 TAB PO QDAY, TAB 07/16/17 Discontinued Reported Medications Lisinopril (LISINOPRIL) 10 Mg Tablet, 1 TAB PO DAILY 08/12/17 Lisinopril (LISINOPRIL) 40 Mg Tablet, 40 MG PO QDAY, TAB 08/12/17 Rifampin (RIFAMPIN) 600 Mg Vial, 600 MG IV, VIAL 08/07/17 Metoprolol Succinate (METOPROLOL SUCCINATE) 50 Mg Tab.er.24h, 1 TAB PO QDAY, TAB 07/19/17 Clopidogrel Bisulfate (CLOPIDOGREL) 75 Mg Tablet, 1 TAB PO QDAY, TAB 07/16/17 Fenofibric Acid (Choline) (FENOFIBRIC ACID) 135 Mg Capsule.dr, 145 MG 07/16/17 Metformin Hcl (METFORMIN HCL) 500 Mg Tablet, 1 TAB PO QDAY, TAB 07/16/17 Levothyroxine Sodium (LEVOTHYROXINE SODIUM) 100 Mcg Tablet, 150 MCG PO QDAY, TAB 07/16/17 Allergies: Coded Allergies: No Known Drug Allergies (Unverified , 08/12/17) Patient History: FH: CAD (coronary artery disease) MOTHER BROTHER OR SISTER BROTHER OR SISTER AUNT OR UNCLE AUNT OR UNCLE FH: diabetes mellitus PATERNAL GPs Other Social/Family Hx The patient is . 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 He resides in [place]. He stopped drinking in January to facilitate losing weight. He has never smoked. He denies recreational drug use. Hx Smoking: No Smoking Status: Never Smoker Exposure to Second Hand Smoke?: No Hx Alcohol Use: Yes (often ) Hx Substance Use Disorder: No History of IV Drug Use: No Review of Systems All Systems Reviewed/Normal: Yes, Except as Noted Constitutional: Fever (Prior to starting antibiotics for endocarditis.), Night Sweats (Prior to starting antibiotics for endocarditis.) Neurological: Other (Hx of CVA.) Cardiovascular: No Chest Pain, No Palpitations Respiratory: No Shortness of Breath Gastrointestinal: Nausea, Vomiting, Abdominal Pain (LUQ and L flank.) Genitourinary: No Dysuria Exam Vital Signs Vital Signs Date Time Temp Pulse Resp B/P (MAP) Pulse Ox O2 Delivery O2 Flow Rate FiO2 08/12/17 02:56 98.8 97 12 157/99 (118) 97 Nasal Cannula 1.0 General Appearance: Alert, Awake, Other (Appears to be in moderate pain.) Neuro: No Gross deficits Eyes: PERRLA Cardiovascular: Normal Rhythm & Peripheral Pulses, Regular Rate and Rhythm ( with LEXY.), No Edema, No JVD Respiratory: Clear to Auscultation GI: Other (Abdomen tender in LUQ with palpation. Soft, nondistended.) Lymph: Cervical Nodes Benign Extremities: Warm, Perfused, Other (Normal hair growth over LE.) Integumentary: Skin Intact without Lesion / Mass Psych: Alert & Oriented X3, Appropriate Mood & Affect Medical Decision Making Data Points Result Diagram: 08/12/17 01008/12/1799 Item Value Date Time Prothrombin Time 14.8 seconds H 08/12/17 010 Prothromb Time International Ratio 1.16 08/12/17 010 Activated Partial Thromboplast Time 29 seconds 08/12/17 010 Urine Color Mari 08/12/17 0230 Urine Clarity Clear 08/12/17 0230 Urine pH 5.0 pH 08/12/17 0230 Urine Specific Cook 1.017 08/12/17 023 Urine Protein Negative mg/dL 08/12/17 0230 Urine Glucose (UA) Negative mg/dL 08/12/17 023 Urine Ketones Negative mg/dL 08/12/17 023 Urine Blood Negative 08/12/17 0230 Urine Nitrite Negative 08/12/17 0230 Urine Bilirubin Negative 08/12/17 0230 Urine Urobilinogen Negative mg/dL 08/12/17 023 Urine Leukocyte Esterase Negative 08/12/17 0230 Urine RBC 1 /HPF 08/12/17 0230 Urine WBC 2 /HPF 08/12/17 0230 Urine Squamous Epithelial Cells Moderate /LPF H 08/12/17 0230 Urine Bacteria Few /HPF 08/12/17 0230 Urine Hyaline Casts Few /LPF 08/12/17 0230 Urine Mucus Few /HPF 08/12/17 0230 Sodium Level 137 mmol/L 08/12/17 0100 Calcium Level 8.4 mg/dl 08/12/17 0100 Total Bilirubin 0.4 mg/dl 08/12/17 0100 Aspartate Amino Transf (AST/SGOT) 24 U/L 08/12/17 0100 Alanine Aminotransferase (ALT/SGPT) 26 U/L 08/12/17 0100 Alkaline Phosphatase 82 U/L 08/12/17 0100 Total Protein 6.8 g/dl 08/12/17 0100 Albumin 3.2 g/dl L 08/12/17 0100 Amylase Level 81 U/L 08/12/17 0100 Lipase 149 U/L 08/12/17 0100 Troponin I 0.273 ng/ml *H 08/12/17 0100 [facility] *LIVE* [address] [facility] [place] [address] CROW GALARZA M.D., DIRECTOR OF LABORATORY SERVICES MELANIE VILLATORO M.D., PATHOLOGIST RUN DATE: 07/31/17 Specimen Inquiry Report PAGE 1 RUN TIME: 1555 PATIENT: RAFIQ GUNTER Rah ACCT: [id number] LOC: [facility] U : [id number] AGE/SX: 71/M ROOM: REG : 07/19/[address]: SHAMEKA DOYLE MD : 1945 BED: DIS : STATUS: DESTINI PAZ TLOC: SPEC #: [id number] BRITTANEY: 07/19/17 STATUS: COMP REQ #: [id number] RECD: 07/19/[address]: SHAMEKA DOYLE MD SOURCE: BLOOD ENTR: 07/19/17-[address] [facility] [address]: ALIZE BERNAL APRN [facility]: ORDERED: BCGS, CULT BLOOD Procedure Result Verified BLOOD CULTURE GRAM STAIN Final 07/21/17-1952 AEROBIC BOTTLE POSITIVE GRAM POSITIVE COCCI IN CLUSTERS POSITIVE BLOOD CULTURE GRAM STAIN REPORT CALLED TO: JAXSON VENTURA RN DATE/TIME REPORT CALLED: 07/21/17 @ 1951 CALLED BY: JOÃO CRESPO BLOOD CULTURE Final 07/31/17-8430 Organism 1 CORYNEBACTERIUM SPECIES GROWTH PRESENT IN THE AEROBIC BOTTLE CORYNEBACTERIUM AMYCOLATUM/JA SEE #[id number] FOR SUSCEPTIBILITIES NO GROWTH IN ANAEROBIC BOTTLE AFTER 5 DAYS END OF REPORT EKG / Imaging EKG Interpretation FACILITY: [facility] [place] PATIENT NAME: RAFIQ GUNTER : [id number] MR: [id number] V: [id number] EXAM DATE: ORDERING PHYSICIAN: LINCOLN DELGADO TECHNOLOGIST: CARMELO Hughes Reason : Blood Pressure : / mmHG Vent. Rate : 073 BPM Atrial Rate : 073 BPM P-R Int : 174 ms QRS Dur : 084 ms QT Int : 424 ms P-R-T Axes : 063 062 061 degrees QTc Int : 467 ms Normal sinus rhythm Nonspecific T wave abnormality Prolonged QT Abnormal ECG When compared with ECG of 07-AUG-2017 12:56, Nonspecific T wave abnormality now evident in Lateral leads Referred By: Confirmed By: 0113 T: Monitor Interpretation: Normal Sinus Rhythm Imaging FACILITY: [facility] PATIENT NAME: Rafiq Gunter : 1945 MR: [id number] V: [id number] EXAM DATE: ORDERING PHYSICIAN: LINCOLN DELGADO TECHNOLOGIST: [place] [facility] [place] Rafiq Gun[place] : 1945 Visit/Account:[id number] Date of Sevice: 08/12/2017 PORTABLE CHEST: Indication: Upper abdominal pain. Technique: A single frontal film was obtained. Comparison: 08/07/2017 Lines and tubes: The PICC line remains in satisfactory position. Skeletal and soft tissue structures: Intact and unchanged. Heart and mediastinum: Stable. Lung canela: Well-expanded and clear. No focal opacities. No vascular congestion. Pleural spaces: Unremarkable. Impression: No acute process or significant change. Report Dictated By: Nick Ray MD at 08/12/2017 2:24 AM Report E-Signed By: Nick Ray MD at 08/12/2017 2:26 AM WSN:[id number] Pre-Admit Course ED Medications Fentany, morphine, Zofran, NS, nitropaste. Medical Record Review: Yes (Reviewed records from [facility] admission 08/07/2017.) Assessment and Plan Problems: (1) Flank pain, acute Status: Acute Assessment & Plan: His pain is suspicious for recurrent splenic infarction. Will order CT of the abdomen/pelvis with IV contrast. Will order Percocet for pain as this was effective with his last episode. (2) Elevated troponin Status: Acute Assessment & Plan: Etiology unclear. He has had recent cardiac evaluation (see HPI). His BP was elevated on admission. Nitropaste was placed in the ER. Will continue nitropaste and monitor. Will continue his usual home medications as well including metoprolol tartrate 25mg bid, amlodipine 10mg daily and lisinopril 40mg daily. (3) Endocarditis of aortic valve Status: Chronic Assessment & Plan: Will continue Vancomycin. Trough ordered for 5 am this am. Currently on 1.25g IV q 12 hours. Will adjust dose as needed. He does have a PICC line in place. He is to have the PICC dressing and cap changed today (once per week on Saturday). Nursing staff has been notified. He has CBC, CMP, CRP and Vanco trough drawn weekly on Mondays. Results are faxed to [facility], Dr. Franks. (4) HTN (hypertension) Status: Chronic Assessment & Plan: BP elevated on admission. Nitropaste placed (1 inch). His elevated BP is likely partly related to his pain. Repeat BP after nitropaste showed improvement to 151/95. Suspect his BP will continue to improve with improvement in his pain control. (5) Hypothyroidism Status: Chronic Assessment & Plan: Continue levothyroxine 112mcg daily. (6) Hyperlipidemia Status: Chronic Assessment & Plan: Continue Crestor 40mg daily and fenofibrate 145mg daily. (7) DM (diabetes mellitus) Status: Chronic Assessment & Plan: The patient states he has prediabetes, but he has had elevation of his HgA1c to 6.1 per [facility] records. Will hold metformin for [address] with IV contrast ordered for today. Repeat HgA1c. (8) Hx of atrial flutter Status: Resolved Assessment & Plan: The patient has history of atrial flutter but is currently in NSR. Time Spent on Plan of Care: < 30 min Copies to: INGRID SWENSON MD; KELLEE FRANKS MD; ALIZE BERNAL APRN; PABLO CARROLL MD Venous Thromboembolism VTE Risk Physician Assess for VTE Risk: Yes Antithrombotics Is Pt On Any Antithrombotics?: Yes Exam Sepsis Risk: No Definite Risk Problem Qualifiers (1) HTN (hypertension): Hypertension type: essential hypertension Qualified Codes: I10 - Essential ( primary) hypertension WEST HUA MD Aug 12, 2017 05:10
[2017-08-12] MEDS: LEVOTHYROXINE SOD 0.112 MG TAB PO SCH (05:55)
[2017-08-12] MEDS ORDERED: VANCOMYCIN(*) 1 GM VIAL 1 GM, VANCOMYCIN (*) 0.5 GM VIAL 0.25 GM in NS(*) 0.9% 250 ML B... IVPB SCH ×2 (06:00)
[2017-08-12 07:39] VITALS: BP 129/91
[2017-08-12] MEDS ORDERED: IOPAMIDOL 76% 100 ML INFUS BTL 100 ML ONE (08:51)
[2017-08-12] MEDS: amLODIPine BESYL(*) 5 MG TAB PO SCH (09:23)
[2017-08-12] MEDS: LISINOPRIL 20 MG TAB PO SCH (09:23)
[2017-08-12] MEDS: RIFAMPIN 150 MG CAP PO SCH ×2 (09:24→20:37)
[2017-08-12] MEDS: FENOFIBRATE,MICRON 145 MG TAB PO SCH (09:24)
[2017-08-12] MEDS: ENOXAPARIN 40 MG/0.4ML SYR SC SCH (09:25)
[2017-08-12] MEDS: METOPROLOL TART 50 MG TAB PO SCH ×2 (09:25→20:35)
[2017-08-12] MEDS: HYDROmorphone HCL 2 MG/ML SDV IVP PRN ×2 (09:36→16:15)
[2017-08-12 12:00] VITALS: BP 126/85
[2017-08-12 12:38] VITALS: BMI 26.6
--- NOTE | 2017-08-12 14:22 | RADIOLOGY IMAGING REPORT ---
FACILITY: [facility] [place] PATIENT NAME: Rafiq Gunter : 1945 MR: [id number] V: [id number] EXAM DATE: ORDERING PHYSICIAN: WEST HUA TECHNOLOGIST: Location: [facility] [place] Patient: Rafiq Gunter : 1945 Visit/Account:[id number] Date of Sevice: 08/12/2017 ABDOMEN/PELVIS WITH CONTRAST HISTORY: L flank pain, hx splenic infarct in past, endocarditis TECHNIQUE: Following administration of IV contrast contiguous axial images acquired through the abdom en/pelvis. Coronal and sagittal reformatting also performed. Dose Lowering Technique One of the following dose optimization techniques was utilized in the performance of this exam: Autom ated exposure control; adjustment of the mA and/or kV according to the patient's size; or use of an i terative reconstruction technique. Specific details can be referenced in the facility's radiology C T exam operational policy. CONTRAST: 85 mL Isovue-370 COMPARISON: CT abdomen pelvis July 16, [address] of the abdomen pelvis dated July 25, 2017 FINDINGS: Visualized lung bases: There is an intrafissural nodule anterior right middle lobe measuring 6 mm in diameter. Best seen on image 18 of series 3. There is a small amount of by basilar atelectasis sli ghtly increased when compared to the prior study Hepatobiliary: There is a subtle hypoattenuating region adjacent to the falciform ligament unchanged when compared the prior study may represent a small focal area of fatty infiltration Spleen: When compared to the most recent study spine again infarct again noted. There is a new area of infarction in the inferior pole the spleen since the prior examination Adrenals: Negative. Pancreas: Negative. Kidneys ureters or bladder: Negative. Genitalia: Prostate gland is enlarged impinging upon the floor the bladder and appears inhomogeneous GI: There Is diverticulosis left-sided colon although no CT evidence of acute diverticulitis there is a small hiatal hernia Vessels/spaces/nodes: Extensive vascular calcifications seen throughout the abdomen and pelvis. The re are shotty retroperitoneal lymph nodes similar to the prior study Bones/soft tissues: There are bilateral inguinal hernias containing fat and a small umbilical hernia also containing fat. No aggressive appearing bone lesions are seen Additional findings: None pertinent. IMPRESSION: When compared to the most recent outside study from July 25, 2017 again noted is the splenic infarct. There is a new area of infarction along the inferior pole of the spleen. 6 mm intrafissural nodule anterior right middle lobe Small amount of by basilar atelectasis increased when compared the prior study Enlarged inhomogeneous prostate gland Diverticulosis left-sided colon Extensive vascular calcination sought the abdomen and pelvis Shotty retroperitoneal lymph nodes similar to the prior study Bilateral inguinal hernias and umbilical hernia containing obtaining fat Report Dictated By: Charmaine Long MD at 08/12/2017 10:27 AM Report E-Signed By: Charmaine Long MD at 08/12/2017 2:19 PM [id number]
[2017-08-12 14:23] VITALS: BP 142/87
--- NOTE | 2017-08-12 15:52 | Antimicrobial Stewardship ---
Antimicrobial Time Out Antimicrobial Stewardship MD Service: Hospitalist Indications: Other (Endocarditis) Antimicrobial Used Vancomycin 1.25g IV q12H + rifampin 300mg po bid Start Date: Jul 20, 2017 (Treatment roughly began on July 20, 2017: Diagnosed in ED at [facility], admitted to [facility] for endocarditis) Culture Results: Yes (07/19/17: Blood Cx x 2 = Corynebacterium amycolatum/ freneyi) Eligible for PO Conversion Eligable for PO Conversion: No (Endocarditis- requires IV treatment) Reviewed with Provider Reviewed w/ Provider on Rounds: Yes Date Reviewed w/ Provider: Aug 12, 2017 Comments Comments RM is a 71 yo M who presented with elevated BP and chest pain. Hx of NSTEMI with recent transfer to [facility] multiple times this past month, AVR (bovine), recent diagnosis of endocarditis with corynebacterium amycolatum/freneyi, and splenic infarct (embolic). ID MD: Dr. Franks at [facility] Temp: afebrile Vitals: WNL Microbiology: 07/19/17: Blood Cx (+): Corynebacterium amycolatum/freneyi Current Therapy: Vancomycin 1.25g IV q12h + rifampin 300mg po BID Duration of Therapy: Minimum of 6 weeks from first negative blood culture Vancomycin Troughs (Goal = 15-20): 08/12/17: 20.84 08/06/17: 19.9 08/05/17: 26.35 Continue present management with Vancomycin + Rifampin per ID. Vancomycin trough appropriate at 20.84, recheck trough in 3-5 days. Corinne Metcalf, PharmD, BCOP CORINNE METCALF Aug 12, 2017 15:52
[2017-08-12] MEDS: VANCOMYCIN(*) 1 GM VIAL 1 GM, VANCOMYCIN (*) 0.5 GM VIAL 0.25 GM in NS(*) 0.9% 250 ML B... IVPB SCH (18:09)
[2017-08-12 19:05] VITALS: BP 153/94
[2017-08-12] MEDS: ACETAMINOPHEN 325 MG TAB PO PRN (19:18)
[2017-08-12] MEDS: ROSUVASTATIN CALCIUM 10 MG TAB PO SCH (20:35)
[2017-08-12 22:59] VITALS: BP 143/90
[2017-08-13] VITALS (7 sets, daily range): BP systolic 117–152; BP diastolic 75–90; Ht 175.3 cm; Wt 82.6 kg
[2017-08-13] MEDS: NS(*) 0.9% 1000 ML BAG 1,000 ML IV PRN (03:03)
[2017-08-13] MEDS: ACETAMINOPHEN 325 MG TAB PO PRN ×2 (03:18→15:16)
[2017-08-13] MEDS: IBUPROFEN 600 MG TAB PO PRN (04:16)
[2017-08-13] MEDS: LEVOTHYROXINE SOD 0.112 MG TAB PO SCH (05:31)
[2017-08-13] MEDS: VANCOMYCIN(*) 1 GM VIAL 1 GM, VANCOMYCIN (*) 0.5 GM VIAL 0.25 GM in NS(*) 0.9% 250 ML B... IVPB SCH ×2 (05:31→17:23)
[2017-08-13 06:35] LABS: PLATELET COUNT, AUTOMATED 281 K/uL (150-450)
[2017-08-13] MEDS: RIFAMPIN 150 MG CAP PO SCH ×2 (09:48→20:22)
[2017-08-13] MEDS: METOPROLOL TART 50 MG TAB PO SCH ×2 (09:48→20:22)
[2017-08-13] MEDS: LISINOPRIL 20 MG TAB PO SCH (09:49)
[2017-08-13] MEDS: ENOXAPARIN 40 MG/0.4ML SYR SC SCH (09:50)
[2017-08-13] MEDS: amLODIPine BESYL(*) 5 MG TAB PO SCH (09:50)
[2017-08-13] MEDS: FENOFIBRATE,MICRON 145 MG TAB PO SCH (09:50)
--- NOTE | 2017-08-13 10:06 | Hospitalist Progress Note ---
Subjective Progress Notes Subjective The side pain is much better this morning. He did spike a temperature to 102.7 at 0300. He reports no chills. Physical Exam Vital Signs Date Time Temp Pulse Resp B/P (MAP) Pulse Ox O2 Delivery O2 Flow Rate FiO2 08/13/17 07:53 87 08/13/17 07:38 Room Air 08/13/17 06:47 98.7 68 15 136/88 (104) 08/13/17 03:06 3.0 Intake and Output 08/14/17 07:00 Intake Total 240 ml Balance 240 ml Intake Oral 240 ml General Appearance: Alert, Awake, No Acute Distress Cardiovascular: Regular Rate and Rhythm (2/6 systolic murmur on the across the precordium) GI: Soft and Non-Tender : No CVA Tenderness Result Diagram: 08/13/17 0530 08/13/17 0530 Monitor Interpretation: Normal Sinus Rhythm Assessment and Plan Problems: (1) Flank pain, acute Status: Acute Assessment & Plan: He presented with recurrence of LUQ and L flank pain. 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 His pain is much better this morning. Dr. Leslie suspects that he a vegetation from the infected valve is causing the emboli. (2) Elevated troponin Status: Acute Assessment & Plan: Etiology unclear, but related to the endocarditis. He has had recent cardiac evaluation (see HPI in the H&P). His BP was elevated on admission. Nitropaste was placed in the ER, but has been stopped. Will continue his usual home medications as well including metoprolol tartrate 25mg bid, amlodipine 10mg daily and lisinopril 40mg daily. Dr. Leslie did stop by and see the patient and is aware that the troponin increased today. The patient is without chest pain. Will follow the troponin. (3) Endocarditis of aortic valve Status: Chronic Assessment & Plan: Will continue Vancomycin. Trough ordered for 5 am this am. Currently on 1.25g IV q 12 hours. Will adjust dose as needed. He does have a PICC line in place. He is to have the PICC dressing and cap changed (once per week on Saturday). Nursing staff has been notified. He has CBC, CMP, CRP and Vanco trough drawn weekly on Mondays. Results are faxed to [facility], Dr. Franks. He did spike a fever overnight. Dr. Leslie recommended recheck cultures and he is going to notify the cardiovascular surgeons that the patient is still having fevers and had the splenic infarct. (4) HTN (hypertension) Status: Chronic Assessment & Plan: BP elevated on admission. Nitropaste placed (1 inch). His elevated BP is likely partly related to his pain. Repeat BP after nitropaste showed improvement to 151/95. Suspect his BP will continue to improve with improvement in his pain control. (5) Hypothyroidism Status: Chronic Assessment & Plan: Continue levothyroxine 112mcg daily. (6) Hyperlipidemia Status: Chronic Assessment & Plan: Continue Crestor 40mg daily and fenofibrate 145mg daily. (7) DM (diabetes mellitus) Status: Chronic Assessment & Plan: The patient states he has prediabetes, but he has had elevation of his HgA1c to 6.1 per [facility] records. Will hold metformin for [address] with IV contrast. Repeat HgA1c. (8) Hx of atrial flutter Status: Resolved Assessment & Plan: The patient has history of atrial flutter but is currently in NSR. Exam Sepsis Risk: Sepsis Risk Problem Qualifiers (1) HTN (hypertension): Hypertension type: essential hypertension Qualified Codes: I10 - Essential ( primary) hypertension MEG MATA MD Aug 13, 2017 10:06
[2017-08-13] MEDS: ROSUVASTATIN CALCIUM 10 MG TAB PO SCH (20:22)
[2017-08-13] MEDS ORDERED: BISACODYL 10 MG SUPP PR PRN (21:20)
[2017-08-13] MEDS ORDERED: MAGNESIUM HYDROXIDE* 30ML UDCP PO PRN (21:20)
[2017-08-13] MEDS: POLYETHYLENE GLYCOL 17 GM PKT PO SCH (22:59)
[2017-08-13] MEDS: DOCUSATE SODIUM 100 MG CAP PO SCH (23:00)
[2017-08-14] MEDS ORDERED: PSEUDOEPHEDRINE LA 120MG TABCR PO PRN (01:20)
[2017-08-14] MEDS: ACETAMINOPHEN 325 MG TAB PO PRN (01:41)
[2017-08-14 02:42] VITALS: BP 146/86
[2017-08-14] MEDS: LEVOTHYROXINE SOD 0.112 MG TAB PO SCH (05:15)
[2017-08-14] MEDS: VANCOMYCIN(*) 1 GM VIAL 1 GM, VANCOMYCIN (*) 0.5 GM VIAL 0.25 GM in NS(*) 0.9% 250 ML B... IVPB SCH (05:16)
[2017-08-14 05:34] LABS: PLATELET COUNT, AUTOMATED 269 K/uL (150-450)
[2017-08-14 07:35] VITALS: BP 152/93
[2017-08-14] MEDS ORDERED: KCL 2 MEQ/ML 20 MEQ/10 ML VIAL 20 MEQ in NS(*) 0.9% 1000 ML BAG 1,000 ML IV PRN (07:39)
[2017-08-14] MEDS ORDERED: KCL (*) 20 MEQ/100 ML PREMIX 100 ML IV ONE (07:40)
[2017-08-14] MEDS ORDERED: VANC1.2511 IV (08:15)
[2017-08-14] MEDS ORDERED: PER PO (08:15)
[2017-08-14] MEDS ORDERED: KCL/NS* 20 MEQ/1000 ML PREMIX 1,000 ML IV PRN (08:15)
[2017-08-14] MEDS: METOPROLOL TART 50 MG TAB PO SCH (08:21)
[2017-08-14] MEDS: FENOFIBRATE,MICRON 145 MG TAB PO SCH (08:21)
[2017-08-14] MEDS: LISINOPRIL 20 MG TAB PO SCH (08:21)
[2017-08-14] MEDS: amLODIPine BESYL(*) 5 MG TAB PO SCH (08:21)
[2017-08-14] MEDS: RIFAMPIN 150 MG CAP PO SCH (08:21)
[2017-08-14] MEDS: ENOXAPARIN 40 MG/0.4ML SYR SC SCH (08:21)
[2017-08-14] MEDS: DOCUSATE SODIUM 100 MG CAP PO SCH (08:21)
[2017-08-14] MEDS: POLYETHYLENE GLYCOL 17 GM PKT PO SCH (08:24)
--- NOTE | 2017-08-14 08:40 | Hospitalist Depart ---
Discharge Summary Reason for Hosp/Final Diag: (1) Elevated troponin Status: Acute Hospital Course & Plan: Etiology unclear, but most likely related to the endocarditis - question septic coronary artery emboli. He has had recent cardiac catheterization without significant coronary artery disease (record not available at this time). He was continued on his usual home medications including metoprolol tartrate 25mg bid, amlodipine 10mg daily and lisinopril 40mg daily. The patient has essentially been without chest pain, but his troponin continues to rise. His C reactive protein has continued rising as well. The case was discussed with Dr. Wm Leslie (cardiology) and Dr. Marilin Escamilla ( CV surgery). Plan was made for transfer of Mr. Morin to [facility] for further evaluation and treatment. (2) Flank pain, acute Status: Acute Hospital Course & Plan: He presented with recurrence of left upper quadrant and left flank pain. 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 His pain has improved with analgesics. He was seen by cardiology (Dr. Wm Leslie). He suspects that Mr. Morin may have had a vegetation from the infected valve cause the emboli. Thus, he may have a septic emboli involving his spleen. He was having continued fever and further elevation of his C reactive protein, despite IV vancomycin and oral rifampin. 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 He has had multiple blood cultures positive for corynebacterium. He was continued on Vancomycin 1.25gm IV q12 hours and oral rifampin 300mg PO BID. He has been followed by [facility], Dr. Franks. Unfortunately, during this admission he has had ongoing fever and rising C reactive protein. There is significant concern he is having septic emboli. As noted above, the case was discussed with cardiology and CV surgery with plan to transfer to [facility] for further evaluation and treatment. (4) Hypothyroidism Status: Chronic Hospital Course & Plan: Continue levothyroxine 112mcg daily. (5) Hyperlipidemia Status: Chronic Hospital Course & Plan: Continue Crestor 40mg daily and fenofibrate 145mg daily. (6) DM (diabetes mellitus) Status: Chronic Hospital Course & Plan: The patient states he has prediabetes, but he has had elevation of his HgA1c to 6.1. We did hold his metformin due to IV contrast. He has been covered with sliding scale insulin during this stay. Repeat HgA1c is 5.8. (7) Hx of atrial flutter Status: Resolved Hospital Course & Plan: The patient has history of atrial flutter, but has been in sinus rhythm during this stay. Departure Weight (Pounds): 182 Result Diagram: 08/14/1750708/14/17507 Item Value Date Time Sodium Level 138 mmol/L 08/07/17 0855 Potassium Level 3.8 mmol/L 08/07/17 0855 Chloride Level 105 mmol/L 08/07/17 0855 Carbon Dioxide Level 23 mmol/L 08/07/17 0855 Blood Urea Nitrogen 16 mg/dl 08/07/17 0855 Creatinine 1.10 mg/dl 08/07/17 0855 Glomerular Filtration Rate Calc > 60.0 08/07/17 0855 Random Glucose 97 mg/dl 08/07/17 0855 Calcium Level 8.6 mg/dl 08/07/17 0855 Total Bilirubin 0.5 mg/dl 08/07/17 0855 Aspartate Amino Transf (AST/SGOT) 26 U/L 08/07/17 0855 Alanine Aminotransferase (ALT/SGPT) 35 U/L 08/07/17 0855 Alkaline Phosphatase 84 U/L 08/07/17 0855 Troponin I 0.106 ng/ml 08/07/17 0855 C-Reactive Protein 3.8 mg/dl H 08/07/17 0855 Total Protein 6.7 g/dl 08/07/17 0855 Albumin 3.1 g/dl L 08/07/17 0855 Troponin I 0.212 ng/ml *H 08/07/17 1156 Lipase 149 U/L 08/12/17 0100 Amylase Level 81 U/L 08/12/17 0100 Albumin 3.2 g/dl L 08/12/17 0100 Total Protein 6.8 g/dl 08/12/17 0100 Alkaline Phosphatase 82 U/L 08/12/17 0100 Aspartate Amino Transf (AST/SGOT) 24 U/L 08/12/17 0100 Alanine Aminotransferase (ALT/SGPT) 26 U/L 08/12/17 0100 Total Bilirubin 0.4 mg/dl 08/12/17 0100 Calcium Level 8.4 mg/dl 08/12/17 0100 Random Glucose 116 mg/dl H 08/12/17 0100 Glomerular Filtration Rate Calc 50.2 08/12/17 0100 Creatinine 1.40 mg/dl H 08/12/17 010 Blood Urea Nitrogen 16 mg/dl 08/12/17 0100 Carbon Dioxide Level 21 mmol/L L 08/12/17 0100 Chloride Level 106 mmol/L 08/12/17 010 Potassium Level 3.7 mmol/L 08/12/17 010 Sodium Level 137 mmol/L 08/12/17 010 Troponin I 0.273 ng/ml *H 08/12/17 0100 Troponin I 0.305 ng/ml *H 08/12/17 0518 C-Reactive Protein 3.6 mg/dl H 08/12/17 0518 Troponin I 0.266 ng/ml *H 08/12/17 1057 Troponin I 0.577 ng/ml *H 08/13/17 0530 Troponin I 0.650 ng/ml *H 08/14/17 0508 C-Reactive Protein 15.6 mg/dl H 08/14/17 0508 C-Reactive Protein 7.8 mg/dl H 08/13/17 0530 Albumin 2.7 g/dl L 08/14/17 0508 Total Protein 5.9 g/dl L 08/14/17 0508 Alkaline Phosphatase 64 U/L 08/14/17 0508 Alanine Aminotransferase (ALT/SGPT) 24 U/L 08/14/17 0508 Aspartate Amino Transf (AST/SGOT) 23 U/L 08/14/17 0508 Calcium Level 7.8 mg/dl L 08/14/17 0508 Total Bilirubin 0.5 mg/dl 08/14/17 0508 Prothrombin Time 14.8 seconds H 08/12/17 0100 Prothromb Time International Ratio 1.16 08/12/17 0100 Activated Partial Thromboplast Time 29 seconds 08/12/17 0100 White Blood Count 9.2 k/uL 08/12/17 0100 Hemoglobin 10.8 g/dL L 08/12/17 0100 Hematocrit 30.9 % L 08/12/17 0100 Platelet Count 313 K/uL 08/12/17 0100 Platelet Count 281 K/uL 08/13/17 0530 Hematocrit 26.3 % *L 08/13/17 0530 Hemoglobin 9.2 g/dL L 08/13/17 0530 White Blood Count 10.1 k/uL 08/13/17 0530 Vancomycin Level Trough 20.84 ug/ml 08/12/17 0518 Vancomycin Last Dose Date 08/1108/12/17 05 Vancomycin Last Dose Time 1800 08/12/17 0518 Vancomycin Level Trough 19.90 ug/ml 08/06/17 1703 Vancomycin Last Dose Date 08/06/17 08/06/17 1703 Vancomycin Last Dose Time 0600 08/06/17 1703 Vancomycin Last Dose Time 0630 08/05/17 1715 Vancomycin Last Dose Date 08/05/17 08/05/17 1715 Vancomycin Level Trough 26.35 ug/ml 08/05/17 171 Urine Color Mari 08/12/17 0230 Urine Clarity Clear 08/12/17 0230 Urine pH 5.0 pH 08/12/17 0230 Urine Specific [place] 1.017 08/12/17 0230 Urine Protein Negative mg/dL 08/12/17 0230 Urine Glucose (UA) Negative mg/dL 08/12/17 0230 Urine Ketones Negative mg/dL 08/12/17 0230 Urine Blood Negative 08/12/17 0230 Urine Nitrite Negative 08/12/17 0230 Urine Bilirubin Negative 08/12/17 0230 Urine Urobilinogen Negative mg/dL 08/12/17 0230 Urine Leukocyte Esterase Negative 08/12/17 0230 Urine RBC 1 /HPF 08/12/17 0230 Urine WBC 2 /HPF 08/12/17 0230 Urine Squamous Epithelial Cells Moderate /LPF H 08/12/17 0230 Urine Bacteria Few /HPF 08/12/17 0230 Urine Hyaline Casts Few /LPF 08/12/17 0230 Urine Mucus Few /HPF 08/12/[address] [facility] *LIVE* [address] [place] [address] CROW GALARZA M.D., DIRECTOR OF LABORATORY SERVICES MELANIE VILLATORO M.D., PATHOLOGIST RUN DATE: 07/31/17 Specimen Inquiry Report PAGE 1 RUN TIME: 1555 PATIENT: RAFIQ MORIN ACCT: [id number] LOC: BRANDI U : [id number] AGE/SX: 71/M ROOM: REG : 07/19/[address]: SHAMEKA DOYLE MD : 1945 BED: DIS : STATUS: DEP ER TLOC: SPEC #: [id number] BRITTANEY: 07/19/17 STATUS: COMP REQ #: [id number] RECD: 07/19/[address]: SHAMEKA DOYLE MD SOURCE: BLOOD ENTR: 07/19/[address]: ALIZE ALDRIDGE [facility] ORDERED: BCGS, CULT BLOOD Procedure Result Verified BLOOD CULTURE GRAM STAIN Final 07/21/17 AEROBIC BOTTLE POSITIVE GRAM POSITIVE COCCI IN CLUSTERS POSITIVE BLOOD CULTURE GRAM STAIN REPORT CALLED TO: JAXSON VENTURA RN DATE/TIME REPORT CALLED: 07/21/17 @ 1951 CALLED BY: JOÃO CRESPO BLOOD CULTURE Final 07/31/17-0038 Organism 1 CORYNEBACTERIUM SPECIES GROWTH PRESENT IN THE AEROBIC BOTTLE CORYNEBACTERIUM AMYCOLATUM/CHERYLI SEE #693 FOR SUSCEPTIBILITIES NO GROWTH IN ANAEROBIC BOTTLE AFTER 5 DAYS [facility] *LIVE* [address] [place] [address] CROW GALARZA M.D., DIRECTOR OF LABORATORY SERVICES MELANIE VILLATORO M.D., PATHOLOGIST RUN DATE: 07/31/17 Specimen Inquiry Report PAGE 1 RUN TIME: 1553 PATIENT: MORINRAFIQ ACCT: [id number] LOC: BRANDI U : [id number] AGE/SX: 71/M ROOM: REG : 07/19/[address]: SHAMEKA DOYLE MD : 1945 BED: DIS : STATUS: DESTINI PAZ TLOC: SPEC #: [id number] BRITTANEY: 07/19/17 STATUS: DE TORRES #: [id number] RECD: 07/19/[address] [facility] [address]: SHAMEKA DOYLE MD SOURCE: BLOOD ENTR: 07/19/17-104 [facility] [address]: ALIZE ALDRIDGE APRN [facility]: ORDERED: BCGS, CULT BLOOD Procedure Result Verified BLOOD CULTURE GRAM STAIN Final 07/22/17-703 AEROBIC BOTTLE POSITIVE GRAM POSITIVE COCCOBACILLI POSITIVE BLOOD CULTURE GRAM STAIN REPORT CALLED TO: BRITANY ZAFAR RN DATE/TIME REPORT CALLED: 07/22/17 @0703 CALLED BY: FELIPE JOHNSON BLOOD CULTURE Final 07/31/17-4473 Organism 1 CORYNEBACTERIUM SPECIES GROWTH PRESENT IN THE AEROBIC BOTTLE CORYNEBACTERIUM AMYLATUM/JA SEE BC693 FOR SUSCEPTIBILITIES NO GROWTH IN ANAEROBIC BOTTLE AFTER 5 DAYS [facility] *LIVE* [address] [place] [address] CROW GALARZA M.D., DIRECTOR OF LABORATORY SERVICES MELANIE VILLATORO M.D., PATHOLOGIST RUN DATE: 08/13/17 Specimen Inquiry Report PAGE 1 RUN TIME: 1000 PATIENT: ARFIQ MORIN ACCT: [id number] LOC: [facility] U : [id number] AGE/SX: 71/M ROOM: [facility] REG : 08/12/[address]: WEST HUA MD : 1945 BED: 266 DIS : STATUS: ADM IN TLOC: SPEC #: [id number] BRITTANEY: 08/13/17 STATUS: RES REQ #: [id number] RECD: 08/13/[address] [facility] [address]: MEG MATA MD SOURCE: BLOOD LINE ENTR: 08/13/[address] [facility] [address]: WEST HUA MD SPDESC: ALIZE ALDRIDGE APRN ORDERED: CULT BLOOD COMMENTS: Comments: draw from port #2 from PICC line RED PICC Procedure Result Verified BLOOD CULTURE Preliminary 08/13/17-1000 NO GROWTH SO FAR, SET LATE. REINCUBATED [facility] *LIVE* [address] [place] [address] CROW GALARZA M.D., DIRECTOR OF LABORATORY SERVICES MELANIE VILLATORO M.D., PATHOLOGIST RUN DATE: 08/13/17 Specimen Inquiry Report PAGE 1 RUN TIME: 1000 PATIENT: RAFIQ MORIN Rah ACCT: [id number] LOC: MED U : [id number] AGE/SX: 71/M ROOM: 2266 REG : 08/12/[address]: WEST HUA MD : 1945 BED: 266 DIS : STATUS: ADM IN TLOC: SPEC #: [id number] BRITTANEY: 08/13/17 STATUS: RES REQ #: [id number] RECD: 08/13/[address] [facility] [address]: MEG MATA MD SOURCE: BLOOD ENTR: 08/13/17 [facility] [address]: WEST HUA MD SPDESC: ALIZE ALDRIDGE APRN ORDERED: CULT BLOOD COMMENTS: Comments: draw from port #1 from PICC line PURPLE PICC Procedure Result Verified BLOOD CULTURE Preliminary 08/13/17-999 NO GROWTH SO FAR, SET LATE. REINCUBATED [facility] STEFANIE *LIVE* [address] [facility] [place] [address] CROW GALARZA M.D., DIRECTOR OF LABORATORY SERVICES MELANIE VILLATORO M.D., PATHOLOGIST RUN DATE: 08/13/17 Specimen Inquiry Report PAGE 1 RUN TIME: 1000 PATIENT: RAFIQ MORIN ACCT: [id number] LOC: [facility] U : [id number] AGE/SX: 71/M ROOM: [facility] REG : 08/12/[address]: WEST HUA MD : 1945 BED: 266 DIS : STATUS: ADM IN TLOC: SPEC #: [id number] BRITTANEY: 08/13/17 STATUS: RES REQ #: [id number] RECD: 08/13/[address]: MEG MATA MD SOURCE: BLOOD ENTR: 08/13/[address] [facility] [address]: WEST HUA MD [facility]: ALIZE ALDRIDGE APRN ORDERED: CULT BLOOD Procedure Result Verified BLOOD CULTURE Preliminary 08/13/17-1000 NO GROWTH SO FAR, SET LATE. 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 Coronal and sagittal reformatting also performed. Dose Lowering Technique One of the following dose optimization techniques was utilized in the performance of this exam: Automated exposure control; adjustment of the mA and/ or kV according to the patient's size; or use of an iterative reconstruction technique. Specific details can be referenced in the facility's radiology CT exam operational policy. CONTRAST: 85 mL Isovue-370 COMPARISON: CT abdomen pelvis July 16, [address] of the abdomen pelvis dated July 25, 2017 FINDINGS: Visualized lung bases: There is an intrafissural nodule anterior right middle lobe measuring 6 mm in diameter. Best seen on image 18 of series 3. There is a small amount of by basilar atelectasis slightly increased when compared to the prior study Hepatobiliary: There is a subtle hypoattenuating region adjacent to the falciform ligament unchanged when compared the prior study may represent a small focal area of fatty infiltration Spleen: When compared to the most recent study spine again infarct again noted. There is a new area of infarction in the inferior pole the spleen since the prior examination Adrenals: Negative. Pancreas: Negative. Kidneys ureters or bladder: Negative. Genitalia: Prostate gland is enlarged impinging upon the floor the bladder and appears inhomogeneous GI: There Is diverticulosis left-sided colon although no CT evidence of acute diverticulitis there is a small hiatal hernia Vessels/spaces/nodes: Extensive vascular calcifications seen throughout the abdomen and pelvis. There are shotty retroperitoneal lymph nodes similar to the prior study Bones/soft tissues: There are bilateral inguinal hernias containing fat and a small umbilical hernia also containing fat. No aggressive appearing bone lesions are seen Additional findings: None pertinent. IMPRESSION: When compared to the most recent outside study from July 25, 2017 again noted is the splenic infarct. There is a new area of infarction along the inferior pole of the spleen. 6 mm intrafissural nodule anterior right middle lobe Small amount of by basilar atelectasis increased when compared the prior study Enlarged inhomogeneous prostate gland Diverticulosis left-sided colon Extensive vascular calcination sought the abdomen and pelvis Shotty retroperitoneal lymph nodes similar to the prior study Bilateral inguinal hernias and umbilical hernia containing obtaining fat Report Dictated By: Charmaine Long MD at 08/12/2017 10:27 AM Report E-Signed By: Charmaine Long MD at 08/12/2017 2:19 PM WSN:AMICIVN PATIENT NAME: Rafiq Morin : 1945 MR: [id number] V: [id number] EXAM DATE: ORDERING PHYSICIAN: LINCOLN DELGADO TECHNOLOGIST: Location: [facility] Patient: Rafiq Morin : 1945 Visit/Account:[id number] Date of Sevice: 08/12/2017 PORTABLE CHEST: Indication: Upper abdominal pain. Technique: A single frontal film was obtained. Comparison: 08/07/2017 Lines and tubes: The PICC line remains in satisfactory position. Skeletal and soft tissue structures: Intact and unchanged. Heart and mediastinum: Stable. Lung canela: Well-expanded and clear. No focal opacities. No vascular congestion. Pleural spaces: Unremarkable. Impression: No acute process or significant change. Report Dictated By: Nick Ray MD at 08/12/2017 2:24 AM Report E-Signed By: Nick Ray MD at 08/12/2017 2:26 AM WSN:[id number] EKG PATIENT NAME: RAFIQ MORIN : [id number] MR: [id number] V: [id number] EXAM DATE: ORDERING PHYSICIAN: LINCOLN DELGADO TECHNOLOGIST: PANTIER Test Reason : Blood Pressure : / mmHG Vent. Rate : 073 BPM Atrial Rate : 073 BPM P-R Int : 174 ms QRS Dur : 084 ms QT Int : 424 ms P-R-T Axes : 063 062 061 degrees QTc Int : 467 ms Normal sinus rhythm Nonspecific T wave abnormality Prolonged QT Abnormal ECG When compared with ECG of 07-AUG-2017 12:56, Nonspecific T wave abnormality now evident in Lateral leads Confirmed by WEST SCHILLING ([id number]) on 08/12/2017 9:00:27 AM Referred By: Confirmed By:WEST SCHILLING Condition: Critical Discharge: Another Hospital ([facility]) Discharge Code Status: Full Code Time Spent: > 30 min Discharge Instructions Home Meds Active Scripts Oxycodone/Acetaminophen (OXYCODONE/ACETAMINOPHEN 5MG/325 MG) 5 Mg/325 Mg Tab, 1- 2 TAB PO Q4H Y for PAIN, #30 TAB 0 Refills Prov:RASHID HUA MD 08/14/17 Vancomycin/0.9 % Sod Chloride (Vanco 1.25 gm/150 ml-0.9% NaCl) 1.25 Gram/150 Ml Plast..bag, 1.25 GM IV Q12H for 30 Days, BAG Prov:RASHID HUA MD 08/14/17 Reported Medications Lisinopril (LISINOPRIL) 40 Mg Tablet, 40 MG PO QDAY, TAB 08/12/17 Levothyroxine Sodium (LEVOTHYROXINE SODIUM) 0.112 Mg Tab, 1 TAB PO DAILY 08/12/17 Metoprolol Tartrate (METOPROLOL TARTRATE) 25 Mg Tablet, 1 TAB PO BID 08/12/17 Rifampin (RIFAMPIN) 300 Mg Capsule, 1 CAP PO BID 08/12/17 Fenofibrate Nanocrystallized (FENOFIBRATE) 145 Mg Tablet, 1 TAB PO DAILY 08/12/17 Rosuvastatin Calcium (CRESTOR) 40 Mg Tablet, 40 MG PO QDAY 07/16/17 Amlodipine Besylate (AMLODIPINE BESYLATE) 10 Mg Tablet, 1 TAB PO QDAY, TAB 07/16/17 Discontinued Reported Medications Metformin Hcl (METFORMIN HCL) 1,000 Mg Tablet, 1 TAB PO DAILY 08/12/17 Lisinopril (LISINOPRIL) 10 Mg Tablet, 1 TAB PO DAILY 08/12/17 Lisinopril (LISINOPRIL) 40 Mg Tablet, 40 MG PO QDAY, TAB 08/12/17 Rifampin (RIFAMPIN) 600 Mg Vial, 600 MG IV, VIAL 08/07/17 Metoprolol Succinate (METOPROLOL SUCCINATE) 50 Mg Tab.er.24h, 1 TAB PO QDAY, TAB 07/19/17 Clopidogrel Bisulfate (CLOPIDOGREL) 75 Mg Tablet, 1 TAB PO QDAY, TAB 07/16/17 Fenofibric Acid (Choline) (FENOFIBRIC ACID) 135 Mg Capsule.dr, 145 MG 07/16/17 Metformin Hcl (METFORMIN HCL) 500 Mg Tablet, 1 TAB PO QDAY, TAB 07/16/17 Levothyroxine Sodium (LEVOTHYROXINE SODIUM) 100 Mcg Tablet, 150 MCG PO QDAY, TAB 07/16/17 Diet: Diabetic Activity: No Exertion Special Instructions: He will be transferred to [facility] for further evaluation and treatment. Venous Thromboembolism Antithrombotics Is Pt On Any Antithrombotics?: Yes RASHID HUA MD Aug 14, 2017 08:39
[2017-08-14] MEDS: IBUPROFEN 600 MG TAB PO PRN (10:17)
[2017-08-14] MEDS ORDERED: NS(*) 0.9% 1000 ML BAG 1,000 ML ONE (12:09)
== END 2017-08-14 12:10 | disposition short-term general hospital (02) | DRG 299 ==
LOC: ER 00:40 → MED 02:31
PROVIDERS: ADMIT Internal Medicine; ATTEND Internal Medicine
DX: I74.8 Embolism and thrombosis of other arteries (principal); I33.0 Acute and subacute infective endocarditis; I76 Septic arterial embolism; I10 Essential (primary) hypertension; E11.9 Type 2 diabetes mellitus without complications; E03.9 Hypothyroidism, unspecified; E78.5 Hyperlipidemia, unspecified; Z79.84 Long term (current) use of oral hypoglycemic drugs; Z95.3 Presence of xenogenic heart valve; I25.2 Old myocardial infarction; Z86.73 Personal history of transient ischemic attack (TIA), and cerebral infarction without residual deficits
CPT/HCPCS: 36415; 71045; 74177; 80202; 81001; 82040; 82150; 82247; 82310; 82374; 82435; 82565; 82947; 83036; 83690; 84075; 84132; 84155; 84295; 84450; 84460; 84484; 84520; 85025; 85610; 85730; 86140; 87040; 93005; J1170; J1642; J1650; J2270; J2405; J3010; J3370; J3480; J7030; J7050; Q9967

== ENCOUNTER → 2017-08-14 | Outpatient (CLI) | payer MEDICARE, OTHER ==
[2017-08-13 11:14] VITALS: BMI 26.9
[~2017-08-14] MED LIST changes: +FENO145T36 PO; +LEV112 PO; +LISI-374 PO; +METF-421 PO; +METO25TA93 PO; +PER PO; +RIFA300C50 PO; +VANC1.2511 IV
== END ==
LOC: AMB 11:58
PROVIDERS: ATTEND Nurse Practitioner
DX: R79.89 Other specified abnormal findings of blood chemistry (principal); R53.1 Weakness; R50.9 Fever, unspecified
CPT/HCPCS: A0425; A0427

== ENCOUNTER 2017-09-30 12:51 | Outpatient (RCR) | payer MEDICARE, OTHER ==
[2017-08-13 11:14] VITALS: BMI 26.9
[2017-08-28 11:58] LABS: INR 3.27
[2017-08-30 08:38] VITALS: BP 102/62
[2017-08-30 08:55] LABS: INR 1.67
[2017-09-02 08:34] LABS: INR 1.74
[2017-09-04 08:38] LABS: INR 2.09
[2017-09-06 08:28] LABS: INR 1.79
[2017-09-09 08:33] LABS: INR 1.93
[2017-09-11 09:11] VITALS: BP 126/67
[2017-09-11 09:29] LABS: INR 1.52
[2017-09-13 11:19] LABS: INR 1.29
[2017-09-16 13:18] LABS: INR 1.38
[2017-09-18 14:09] LABS: INR 1.49
[2017-09-20 13:36] LABS: INR 1.34
[2017-09-23 13:19] LABS: INR 1.34
[2017-09-25 14:05] LABS: INR 1.37
[2017-09-27 13:42] LABS: INR 1.52
[~2017-09-30 12:51] MED LIST changes: +AMIO100T; +WARF5TAB23 PO
[2017-09-30 13:18] VITALS: BP 157/83
[2017-09-30 13:20] LABS: INR 1.43
== END 2017-10-11 09:17 | disposition home or self-care (01) ==
LOC: SPU 12:51
PROVIDERS: ATTEND Thoracic Surgery (Cardiothoracic Vascular Surgery)
DX: Z51.81 Encounter for therapeutic drug level monitoring (principal); Z79.01 Long term (current) use of anticoagulants
CPT/HCPCS: 36592; 85610

== ENCOUNTER 2017-10-01 12:51 | Outpatient (RCR) | payer MEDICARE, OTHER ==
[2017-07-31 05:45] VITALS: BP 92/64
[2017-07-31 07:15] VITALS: BP 103/66
[2017-07-31] MEDS: ALTEPLASE RECOMB 2 MG VIAL IVP PRN (08:15)
[2017-07-31 18:06] VITALS: BP 115/76
[2017-07-31] MEDS: VANCOMYCIN(*) 1 GM VIAL 1 GM, VANCOMYCIN (*) 0.5 GM VIAL 0.5 GM in NS(*) 0.9% 250 ML BA... IVPB SCH (18:14)
[2017-07-31 20:00] VITALS: BP 120/76
[2017-08-01] MEDS: VANCOMYCIN(*) 1 GM VIAL 1 GM, VANCOMYCIN (*) 0.5 GM VIAL 0.5 GM in NS(*) 0.9% 250 ML BA... IVPB SCH ×2 (06:06→18:19)
[2017-08-01 06:11] VITALS: BP 106/73
[2017-08-01 07:58] VITALS: BP 124/76
[2017-08-01 18:00] VITALS: BP 117/78
[2017-08-01 19:40] VITALS: BP 120/88
[2017-08-02 06:07] VITALS: BP 149/93
[2017-08-02] MEDS: VANCOMYCIN(*) 1 GM VIAL 1 GM, VANCOMYCIN (*) 0.5 GM VIAL 0.5 GM in NS(*) 0.9% 250 ML BA... IVPB SCH ×2 (06:07→18:12)
[2017-08-02 18:15] VITALS: BP 128/84
[2017-08-02 20:12] VITALS: BP 149/97
[2017-08-03] MEDS: NS(*) 0.9% 100 ML BAG 100 ML IVPB PRN (06:03)
[2017-08-03] MEDS: VANCOMYCIN(*) 1 GM VIAL 1 GM, VANCOMYCIN (*) 0.5 GM VIAL 0.5 GM in NS(*) 0.9% 250 ML BA... IVPB SCH ×2 (06:03→18:00)
[2017-08-03 06:08] VITALS: BP 112/72
[2017-08-03 08:16] VITALS: BP 122/78
[2017-08-03 17:55] VITALS: BP 133/80
[2017-08-04 05:49] VITALS: BP 121/71
[2017-08-04] MEDS: NS(*) 0.9% 100 ML BAG 100 ML IVPB PRN (05:57)
[2017-08-04] MEDS: VANCOMYCIN(*) 1 GM VIAL 1 GM, VANCOMYCIN (*) 0.5 GM VIAL 0.5 GM in NS(*) 0.9% 250 ML BA... IVPB SCH ×2 (05:57→17:59)
[2017-08-04 07:45] VITALS: BP 111/67
[2017-08-04 17:52] VITALS: BP 141/88
[2017-08-04 19:42] VITALS: BP 144/88
[2017-08-05 06:00] VITALS: BP 128/77
[2017-08-05] MEDS: VANCOMYCIN(*) 1 GM VIAL 1 GM, VANCOMYCIN (*) 0.5 GM VIAL 0.5 GM in NS(*) 0.9% 250 ML BA... IVPB SCH (06:04)
[2017-08-05] MEDS: NS(*) 0.9% 100 ML BAG 100 ML IVPB PRN (06:38)
[2017-08-05 08:25] VITALS: BP 133/83
[2017-08-05 17:00] VITALS: BP 148/92
[2017-08-05 18:00] VITALS: BP 144/89
[2017-08-06 06:00] VITALS: BP 127/80
[2017-08-06] MEDS: VANCOMYCIN(*) 1 GM VIAL 1 GM, VANCOMYCIN (*) 0.5 GM VIAL 0.25 GM in NS(*) 0.9% 250 ML B... IVPB SCH ×2 (06:00→17:55)
[2017-08-06 07:30] VITALS: BP 128/85
[2017-08-06 08:30] VITALS: BP 128/85
[2017-08-06 17:00] VITALS: BP 135/83
[2017-08-06 19:05] VITALS: BP 138/82
[2017-08-07 05:51] VITALS: BP 156/100
[2017-08-07 06:05] VITALS: BP 165/97
[2017-08-07] MEDS: VANCOMYCIN(*) 1 GM VIAL 1 GM, VANCOMYCIN (*) 0.5 GM VIAL 0.25 GM in NS(*) 0.9% 250 ML B... IVPB SCH (06:12)
[2017-08-07 06:35] VITALS: BP 171/106
[2017-08-07 06:45] VITALS: BP 164/99
[2017-08-07 07:00] VITALS: BP 163/91
[2017-08-07 07:24] VITALS: BP 170/101
[2017-08-08] MEDS: VANCOMYCIN(*) 1 GM VIAL 1 GM, VANCOMYCIN (*) 0.5 GM VIAL 0.25 GM in NS(*) 0.9% 250 ML B... IVPB SCH (18:00)
[2017-08-09] MEDS: VANCOMYCIN(*) 1 GM VIAL 1 GM, VANCOMYCIN (*) 0.5 GM VIAL 0.25 GM in NS(*) 0.9% 250 ML B... IVPB SCH ×3 (06:00→19:47)
[2017-08-09 18:03] VITALS: BP 139/95
[2017-08-09 19:45] VITALS: BP 146/92
[2017-08-09 20:45] VITALS: BP 140/91
[2017-08-10 06:00] VITALS: BP 124/96
[2017-08-10] MEDS: VANCOMYCIN(*) 1 GM VIAL 1 GM, VANCOMYCIN (*) 0.5 GM VIAL 0.25 GM in NS(*) 0.9% 250 ML B... IVPB SCH ×4 (06:00→18:15)
[2017-08-10 07:17] VITALS: BP 125/81
[2017-08-10 18:00] VITALS: BP 126/88
[2017-08-10 19:10] VITALS: BP 136/92
[2017-08-11 06:05] VITALS: BP 134/87
[2017-08-11] MEDS: VANCOMYCIN(*) 1 GM VIAL 1 GM, VANCOMYCIN (*) 0.5 GM VIAL 0.25 GM in NS(*) 0.9% 250 ML B... IVPB SCH ×2 (06:20→18:04)
[2017-08-11 07:35] VITALS: BP 116/76
[2017-08-11 17:57] VITALS: BP 138/91
[2017-08-11 19:45] VITALS: BP 134/87
[2017-08-13 11:14] VITALS: Wt 82.2 kg
[2017-08-17 05:58] VITALS: BP 134/83
[2017-08-17] MEDS: VANCOMYCIN(*) 1 GM VIAL 1 GM, VANCOMYCIN (*) 0.5 GM VIAL 0.5 GM in NS(*) 0.9% 250 ML BA... IVPB SCH ×2 (06:06→18:06)
[2017-08-17 07:09] VITALS: BP 134/93
[2017-08-17] MEDS: ALTEPLASE RECOMB 2 MG VIAL IVP PRN (18:12)
[2017-08-17 18:20] VITALS: BP 129/83
[2017-08-17 19:50] VITALS: BP 143/91
[2017-08-18] MEDS: VANCOMYCIN(*) 1 GM VIAL 1 GM, VANCOMYCIN (*) 0.5 GM VIAL 0.5 GM in NS(*) 0.9% 250 ML BA... IVPB SCH ×2 (06:49→17:57)
[2017-08-18 06:57] VITALS: BP 133/87
[2017-08-18 08:38] VITALS: BP 144/86
[2017-08-18 18:03] VITALS: BP 136/86
[2017-08-18 19:44] VITALS: BP 160/95
[2017-08-19 06:56] VITALS: BP 137/92
[2017-08-19] MEDS: VANCOMYCIN(*) 1 GM VIAL 1 GM, VANCOMYCIN (*) 0.5 GM VIAL 0.5 GM in NS(*) 0.9% 250 ML BA... IVPB SCH (07:16)
[2017-08-27 12:08] VITALS: BP 142/83
[2017-08-27] MEDS: NS(*) 0.9% 100 ML BAG 100 ML IVPB PRN (12:18)
[2017-08-27] MEDS: VANCOMYCIN(*) 1 GM VIAL 1 GM, VANCOMYCIN HCL 0.750 GM VIAL 0.75 GM in NS(*) 0.9% 250 ML... IVPB PRN (12:26)
[2017-08-27 14:18] VITALS: BP 147/81
[2017-08-28 11:05] VITALS: BP 133/83
[2017-08-28] MEDS: NS(*) 0.9% 100 ML BAG 100 ML IVPB PRN (12:13)
[2017-08-28] MEDS: VANCOMYCIN(*) 1 GM VIAL 1 GM, VANCOMYCIN HCL 0.750 GM VIAL 0.75 GM in NS(*) 0.9% 250 ML... IVPB PRN (12:13)
[2017-08-28 13:30] VITALS: BP 128/75
[2017-08-29] MEDS: NS(*) 0.9% 100 ML BAG 100 ML IVPB PRN (10:00)
[2017-08-29 10:04] VITALS: BP 109/62
[2017-08-29] MEDS: VANCOMYCIN(*) 1 GM VIAL 1 GM, VANCOMYCIN HCL 0.750 GM VIAL 0.75 GM in NS(*) 0.9% 250 ML... IVPB PRN (10:16)
[2017-08-30] MEDS: NS(*) 0.9% 100 ML BAG 100 ML IVPB PRN (09:00)
[2017-08-30] MEDS: VANCOMYCIN(*) 1 GM VIAL 1 GM, VANCOMYCIN HCL 0.750 GM VIAL 0.75 GM in NS(*) 0.9% 250 ML... IVPB PRN (09:00)
[2017-08-30 10:47] VITALS: BP 115/75
[2017-08-31 07:54] VITALS: BP 130/74
[2017-08-31] MEDS: NS(*) 0.9% 100 ML BAG 100 ML IVPB PRN (08:08)
[2017-08-31] MEDS: VANCOMYCIN(*) 1 GM VIAL 1 GM, VANCOMYCIN HCL 0.750 GM VIAL 0.75 GM in NS(*) 0.9% 250 ML... IVPB PRN (08:09)
[2017-08-31 08:37] LABS: PLATELET COUNT, AUTOMATED 380 K/uL (150-450)
[2017-09-01] MEDS: NS(*) 0.9% 100 ML BAG 100 ML IVPB PRN (08:05)
[2017-09-01] MEDS: VANCOMYCIN(*) 1 GM VIAL 1 GM, VANCOMYCIN HCL 0.750 GM VIAL 0.75 GM in NS(*) 0.9% 250 ML... IVPB PRN (08:06)
[2017-09-01 08:07] VITALS: BP 125/71
[2017-09-02 08:29] VITALS: BP 115/69
[2017-09-02] MEDS: NS(*) 0.9% 100 ML BAG 100 ML IVPB PRN (09:28)
[2017-09-02] MEDS: VANCOMYCIN(*) 1 GM VIAL 1 GM, VANCOMYCIN HCL 0.750 GM VIAL 0.75 GM in NS(*) 0.9% 250 ML... IVPB PRN (09:33)
[2017-09-02 11:00] VITALS: BP 120/82
[2017-09-03 08:20] VITALS: BP 111/68
[2017-09-03] MEDS: VANCOMYCIN(*) 1 GM VIAL 1 GM, VANCOMYCIN HCL 0.750 GM VIAL 0.75 GM in NS(*) 0.9% 250 ML... IVPB PRN (08:36)
[2017-09-03] MEDS: NS(*) 0.9% 100 ML BAG 100 ML IVPB PRN (09:00)
[2017-09-04 08:13] VITALS: BP 135/70
[2017-09-04] MEDS: VANCOMYCIN(*) 1 GM VIAL 1 GM, VANCOMYCIN HCL 0.750 GM VIAL 0.75 GM in NS(*) 0.9% 250 ML... IVPB PRN (09:22)
[2017-09-04 11:02] VITALS: BP 124/78
[2017-09-04] MEDS: NS(*) 0.9% 100 ML BAG 100 ML IVPB PRN (11:02)
[2017-09-05 08:08] VITALS: BP 126/72
[2017-09-05] MEDS: NS(*) 0.9% 100 ML BAG 100 ML IVPB PRN (08:10)
[2017-09-05] MEDS: VANCOMYCIN(*) 1 GM VIAL 1 GM, VANCOMYCIN HCL 0.750 GM VIAL 0.75 GM in NS(*) 0.9% 250 ML... IVPB PRN (08:12)
[2017-09-06 08:06] VITALS: BP 115/64
[2017-09-06] MEDS: VANCOMYCIN(*) 1 GM VIAL 1 GM, VANCOMYCIN HCL 0.750 GM VIAL 0.75 GM in NS(*) 0.9% 250 ML... IVPB PRN (08:24)
[2017-09-06] MEDS: NS(*) 0.9% 100 ML BAG 100 ML IVPB PRN (08:26)
[2017-09-07 08:01] VITALS: BP 116/66
[2017-09-07] MEDS: NS(*) 0.9% 100 ML BAG 100 ML IVPB PRN (08:08)
[2017-09-07] MEDS: VANCOMYCIN(*) 1 GM VIAL 1 GM, VANCOMYCIN HCL 0.750 GM VIAL 0.75 GM in NS(*) 0.9% 250 ML... IVPB PRN (08:10)
[2017-09-07 09:43] VITALS: BP 121/70
[2017-09-08 07:56] VITALS: BP 126/74
[2017-09-08] MEDS: NS(*) 0.9% 100 ML BAG 100 ML IVPB PRN (08:01)
[2017-09-08] MEDS: VANCOMYCIN(*) 1 GM VIAL 1 GM, VANCOMYCIN HCL 0.750 GM VIAL 0.75 GM in NS(*) 0.9% 250 ML... IVPB PRN (08:02)
[2017-09-08 09:39] VITALS: BP 105/63
[2017-09-09 08:25] LABS: PLATELET COUNT, AUTOMATED 297 K/uL (150-450)
[2017-09-09 08:30] VITALS: BP 111/63
[2017-09-09] MEDS: VANCOMYCIN(*) 1 GM VIAL 1 GM, VANCOMYCIN HCL 0.750 GM VIAL 0.75 GM in NS(*) 0.9% 250 ML... IVPB PRN (09:47)
[2017-09-09] MEDS: NS(*) 0.9% 100 ML BAG 100 ML IVPB PRN (11:53)
[2017-09-10 08:30] VITALS: BP 122/66
[2017-09-10] MEDS: NS(*) 0.9% 100 ML BAG 100 ML IVPB PRN (08:45)
[2017-09-10] MEDS: VANCOMYCIN(*) 1 GM VIAL 1 GM, VANCOMYCIN HCL 0.750 GM VIAL 0.75 GM in NS(*) 0.9% 250 ML... IVPB PRN (08:45)
[2017-09-11] MEDS: VANCOMYCIN(*) 1 GM VIAL 1 GM, VANCOMYCIN HCL 0.750 GM VIAL 0.75 GM in NS(*) 0.9% 250 ML... IVPB PRN (09:29)
[2017-09-12 09:57] VITALS: BP 132/75
[2017-09-12] MEDS: NS(*) 0.9% 100 ML BAG 100 ML IVPB PRN (10:15)
[2017-09-12] MEDS: VANCOMYCIN(*) 1 GM VIAL 1 GM, VANCOMYCIN HCL 0.750 GM VIAL 0.75 GM in NS(*) 0.9% 250 ML... IVPB PRN (10:17)
[2017-09-12 11:48] VITALS: BP 135/79
[2017-09-13] MEDS: VANCOMYCIN(*) 1 GM VIAL 1 GM, VANCOMYCIN HCL 0.750 GM VIAL 0.75 GM in NS(*) 0.9% 250 ML... IVPB PRN (11:03)
[2017-09-13] MEDS: NS(*) 0.9% 100 ML BAG 100 ML IVPB PRN (11:05)
[2017-09-13 11:06] VITALS: BP 120/75
[2017-09-13 12:31] VITALS: BP 132/75
[2017-09-14] MEDS: NS(*) 0.9% 100 ML BAG 100 ML IVPB PRN ×2 (10:54→12:00)
[2017-09-14] MEDS: VANCOMYCIN(*) 1 GM VIAL 1 GM, VANCOMYCIN HCL 0.750 GM VIAL 0.75 GM in NS(*) 0.9% 250 ML... IVPB PRN (12:00)
[2017-09-14 12:23] VITALS: BP 127/79
[2017-09-14 13:54] VITALS: BP 140/81
[2017-09-15] MEDS: NS(*) 0.9% 100 ML BAG 100 ML IVPB PRN (12:59)
[2017-09-15] MEDS: VANCOMYCIN(*) 1 GM VIAL 1 GM, VANCOMYCIN HCL 0.750 GM VIAL 0.75 GM in NS(*) 0.9% 250 ML... IVPB PRN (13:00)
[2017-09-15 13:09] VITALS: BP 137/81
[2017-09-15 14:45] VITALS: BP 133/77
[2017-09-16 13:07] LABS: PLATELET COUNT, AUTOMATED 294 K/uL (150-450)
[2017-09-16] MEDS: NS(*) 0.9% 100 ML BAG 100 ML IVPB PRN (13:53)
[2017-09-16] MEDS: VANCOMYCIN(*) 1 GM VIAL 1 GM, VANCOMYCIN HCL 0.750 GM VIAL 0.75 GM in NS(*) 0.9% 250 ML... IVPB PRN (13:53)
[2017-09-16 14:15] VITALS: BP 138/86
[2017-09-17] MEDS: VANCOMYCIN(*) 1 GM VIAL 1 GM, VANCOMYCIN HCL 0.750 GM VIAL 0.75 GM in NS(*) 0.9% 250 ML... IVPB PRN (13:05)
[2017-09-17] MEDS: NS(*) 0.9% 100 ML BAG 100 ML IVPB PRN (13:05)
[2017-09-17 13:07] VITALS: BP 137/81
[2017-09-18] MEDS: VANCOMYCIN(*) 1 GM VIAL 1 GM, VANCOMYCIN HCL 0.750 GM VIAL 0.75 GM in NS(*) 0.9% 250 ML... IVPB PRN (13:07)
[2017-09-18] MEDS: NS(*) 0.9% 100 ML BAG 100 ML IVPB PRN (13:07)
[2017-09-18 13:42] VITALS: BP 117/71
[2017-09-18 14:54] VITALS: BP 113/72
[2017-09-19] MEDS: NS(*) 0.9% 100 ML BAG 100 ML IVPB PRN (13:06)
[2017-09-19] MEDS: VANCOMYCIN(*) 1 GM VIAL 1 GM, VANCOMYCIN HCL 0.750 GM VIAL 0.75 GM in NS(*) 0.9% 250 ML... IVPB PRN (13:08)
[2017-09-19 13:09] VITALS: BP 130/78
[2017-09-19 14:44] VITALS: BP 142/80
[2017-09-20] MEDS: NS(*) 0.9% 100 ML BAG 100 ML IVPB PRN (13:20)
[2017-09-20] MEDS: VANCOMYCIN(*) 1 GM VIAL 1 GM, VANCOMYCIN HCL 0.750 GM VIAL 0.75 GM in NS(*) 0.9% 250 ML... IVPB PRN (13:21)
[2017-09-20 15:52] VITALS: BP 128/80
[2017-09-21] MEDS: VANCOMYCIN(*) 1 GM VIAL 1 GM, VANCOMYCIN HCL 0.750 GM VIAL 0.75 GM in NS(*) 0.9% 250 ML... IVPB PRN (12:54)
[2017-09-21 12:55] VITALS: BP 130/76
[2017-09-21] MEDS: NS(*) 0.9% 100 ML BAG 100 ML IVPB PRN (12:55)
[2017-09-22] MEDS: VANCOMYCIN(*) 1 GM VIAL 1 GM, VANCOMYCIN HCL 0.750 GM VIAL 0.75 GM in NS(*) 0.9% 250 ML... IVPB PRN (12:59)
[2017-09-22] MEDS: NS(*) 0.9% 100 ML BAG 100 ML IVPB PRN (12:59)
[2017-09-22 13:03] VITALS: BP 133/76
[2017-09-23 13:06] VITALS: BP 122/70
[2017-09-23 13:12] LABS: PLATELET COUNT, AUTOMATED 274 K/uL (150-450)
[2017-09-23] MEDS: VANCOMYCIN(*) 1 GM VIAL 1 GM, VANCOMYCIN HCL 0.750 GM VIAL 0.75 GM in NS(*) 0.9% 250 ML... IVPB PRN (13:55)
[2017-09-23] MEDS: NS(*) 0.9% 100 ML BAG 100 ML IVPB PRN (14:00)
[2017-09-24] MEDS: VANCOMYCIN(*) 1 GM VIAL 1 GM, VANCOMYCIN HCL 0.750 GM VIAL 0.75 GM in NS(*) 0.9% 250 ML... IVPB PRN (13:15)
[2017-09-24] MEDS: NS(*) 0.9% 100 ML BAG 100 ML IVPB PRN (13:15)
[2017-09-24 13:16] VITALS: BP 132/82
[2017-09-25] MEDS: NS(*) 0.9% 100 ML BAG 100 ML IVPB PRN (13:00)
[2017-09-25] MEDS: VANCOMYCIN(*) 1 GM VIAL 1 GM, VANCOMYCIN HCL 0.750 GM VIAL 0.75 GM in NS(*) 0.9% 250 ML... IVPB PRN (13:08)
[2017-09-26] MEDS: NS(*) 0.9% 100 ML BAG 100 ML IVPB PRN (13:25)
[2017-09-26] MEDS: VANCOMYCIN(*) 1 GM VIAL 1 GM, VANCOMYCIN HCL 0.750 GM VIAL 0.75 GM in NS(*) 0.9% 250 ML... IVPB PRN (13:30)
[2017-09-26 15:40] VITALS: BP 118/55
[2017-09-27] MEDS: NS(*) 0.9% 100 ML BAG 100 ML IVPB PRN (13:24)
[2017-09-27] MEDS: VANCOMYCIN(*) 1 GM VIAL 1 GM, VANCOMYCIN HCL 0.750 GM VIAL 0.75 GM in NS(*) 0.9% 250 ML... IVPB PRN (13:24)
[2017-09-27 13:29] VITALS: BP 134/73
[2017-09-27 15:13] VITALS: BP 151/87
[2017-09-28 13:00] VITALS: BP 145/84
[2017-09-28] MEDS: NS(*) 0.9% 100 ML BAG 100 ML IVPB PRN (13:05)
[2017-09-28] MEDS: VANCOMYCIN(*) 1 GM VIAL 1 GM, VANCOMYCIN HCL 0.750 GM VIAL 0.75 GM in NS(*) 0.9% 250 ML... IVPB PRN (13:05)
[2017-09-28 14:42] VITALS: BP 147/78
[2017-09-29 12:54] VITALS: BP 156/79
[2017-09-29] MEDS: VANCOMYCIN(*) 1 GM VIAL 1 GM, VANCOMYCIN HCL 0.750 GM VIAL 0.75 GM in NS(*) 0.9% 250 ML... IVPB PRN (12:56)
[2017-09-29] MEDS: NS(*) 0.9% 100 ML BAG 100 ML IVPB PRN (12:57)
[2017-09-29 14:33] VITALS: BP 135/83
[2017-09-30] MEDS: NS(*) 0.9% 100 ML BAG 100 ML IVPB PRN (13:03)
[2017-09-30] MEDS: VANCOMYCIN(*) 1 GM VIAL 1 GM, VANCOMYCIN HCL 0.750 GM VIAL 0.75 GM in NS(*) 0.9% 250 ML... IVPB PRN (13:05)
[2017-09-30 14:34] VITALS: BP 135/75
[~2017-10-01 12:51] MED LIST changes: +DEXTROSE 5%(*) 100 ML BAG 100 ML IVPB PRN; +NS(*) 0.9% 250 ML BAG 250 ML ONE; +NS(*) 0.9% 500 ML BAG 500 ML IV PRN; +VANCOMYCIN 0.5 GM VIAL ONE; +VANCOMYCIN 1 GM VIAL ONE; +VANCOMYCIN ADDVAN 1 GM in NS 250 ML IVPB SCH; +VANCOMYCIN(*) 1 GM VIAL 1 GM, VANCOMYCIN (*) 0.5 GM VIAL 0.5 GM in NS(*) 0.9% 250 ML BA... IVPB SCH; +WATER FOR INJ,STERILE 20 ML IVP PRN
[2017-10-01] MEDS: VANCOMYCIN(*) 1 GM VIAL 1 GM, VANCOMYCIN HCL 0.750 GM VIAL 0.75 GM in NS(*) 0.9% 250 ML... IVPB PRN (12:53)
[2017-10-01] MEDS: NS(*) 0.9% 100 ML BAG 100 ML IVPB PRN (12:54)
[2017-10-01 12:58] VITALS: BP 129/72
[2017-10-01 14:40] VITALS: BP 138/81
== END 2017-10-11 09:17 | disposition home or self-care (01) ==
LOC: SPU 12:51
PROVIDERS: ATTEND Internal Medicine Infectious Disease
DX: I38 Endocarditis, valve unspecified (principal)
CPT/HCPCS: 36592; 80202; 85025; 85651; 86140; 96365; 96366; J1642; J3370; J7050; 36415; 82040; 82247; 82310; 82374; 82435; 82565; 82947; 84075; 84132; 84155; 84295; 84450; 84460; 84520; 85610; 96374; J2997; J7040

== ENCOUNTER → 2017-10-03 | Outpatient (CLI) | payer MEDICARE, OTHER ==
[2017-08-13 11:14] VITALS: BMI 26.9
[~2017-10-03] MED LIST changes: -DEXTROSE 5%(*) 100 ML BAG 100 ML IVPB PRN; -NS(*) 0.9% 250 ML BAG 250 ML ONE; -NS(*) 0.9% 500 ML BAG 500 ML IV PRN; -VANCOMYCIN 0.5 GM VIAL ONE; -VANCOMYCIN 1 GM VIAL ONE; -VANCOMYCIN ADDVAN 1 GM in NS 250 ML IVPB SCH; -VANCOMYCIN(*) 1 GM VIAL 1 GM, VANCOMYCIN (*) 0.5 GM VIAL 0.5 GM in NS(*) 0.9% 250 ML BA... IVPB SCH; -WATER FOR INJ,STERILE 20 ML IVP PRN
[2017-10-03 08:49] LABS: INR 1.37
== END ==
LOC: LAB 08:30
PROVIDERS: ATTEND Internal Medicine Cardiovascular Disease
DX: Z51.81 Encounter for therapeutic drug level monitoring (principal); Z79.01 Long term (current) use of anticoagulants; T82.6XXD Infection and inflammatory reaction due to cardiac valve prosthesis, subsequent encounter
CPT/HCPCS: 36415; 85610

== ENCOUNTER → 2017-10-03 | Outpatient (CLI) | payer MEDICARE, OTHER ==
[2017-08-13 11:14] VITALS: BMI 26.9
== END ==
LOC: US 01:17
PROVIDERS: ATTEND Thoracic Surgery (Cardiothoracic Vascular Surgery)
DX: I50.30 Unspecified diastolic (congestive) heart failure (principal); I07.1 Rheumatic tricuspid insufficiency; I37.1 Nonrheumatic pulmonary valve insufficiency; I34.0 Nonrheumatic mitral (valve) insufficiency; Z95.2 Presence of prosthetic heart valve
CPT/HCPCS: 93306

== ENCOUNTER → 2017-10-07 | Outpatient (CLI) | payer MEDICARE, OTHER ==
[2017-08-13 11:14] VITALS: BMI 26.9
[2017-10-07 08:51] LABS: INR 1.23
== END ==
LOC: LAB 08:29
PROVIDERS: ATTEND Internal Medicine Cardiovascular Disease
DX: Z51.81 Encounter for therapeutic drug level monitoring (principal); Z79.01 Long term (current) use of anticoagulants; T82.6XXD Infection and inflammatory reaction due to cardiac valve prosthesis, subsequent encounter
CPT/HCPCS: 36415; 85610

== ENCOUNTER → 2017-10-11 | Outpatient (CLI) | payer MEDICARE, OTHER ==
[2017-08-13 11:14] VITALS: BMI 26.9
[2017-10-11 09:29] LABS: INR 1.59
== END ==
LOC: LAB 08:49
PROVIDERS: ATTEND Internal Medicine Cardiovascular Disease
DX: I25.10 Atherosclerotic heart disease of native coronary artery without angina pectoris (principal); Z51.81 Encounter for therapeutic drug level monitoring; Z79.01 Long term (current) use of anticoagulants
CPT/HCPCS: 36415; 85610

== ENCOUNTER → 2017-10-14 | Outpatient (CLI) | payer MEDICARE, OTHER ==
[2017-08-13 11:14] VITALS: BMI 26.9
[2017-10-14 09:55] LABS: INR 2.79
== END ==
LOC: LAB 09:20
PROVIDERS: ATTEND Internal Medicine Cardiovascular Disease
DX: T82.6XXD Infection and inflammatory reaction due to cardiac valve prosthesis, subsequent encounter (principal); Z51.81 Encounter for therapeutic drug level monitoring; Z79.01 Long term (current) use of anticoagulants
CPT/HCPCS: 36415; 85610

== ENCOUNTER → 2017-10-24 | Outpatient (CLI) | payer MEDICARE, OTHER ==
[2017-08-13 11:14] VITALS: BMI 26.9
[~2017-10-24] MED LIST changes: +AMLO-113 PO; -AMLO-99 PO; -METF-411 PO; -METF-421 PO; +METF-450 PO; +METF-452 PO
[2017-10-24 08:37] LABS: INR 2.29
== END ==
LOC: LAB 08:08
PROVIDERS: ATTEND Internal Medicine Cardiovascular Disease
DX: Z51.81 Encounter for therapeutic drug level monitoring (principal); T82.6XXD Infection and inflammatory reaction due to cardiac valve prosthesis, subsequent encounter; Z79.01 Long term (current) use of anticoagulants
CPT/HCPCS: 36415; 85610

== ENCOUNTER → 2017-10-31 | Outpatient (CLI) | payer MEDICARE, OTHER ==
[2017-08-13 11:14] VITALS: BMI 26.9
[~2017-10-31] MED LIST changes: +ASPI81TA94 PO; +DOXY-181 PO; +FERR325T24 PO; +HYDR12.561 PO; +LISI20TA29 PO; +VIT1CAPS33 PO; +WARF4TAB15 PO
[2017-10-31 10:12] LABS: INR 2.91
== END ==
LOC: LAB 09:41
PROVIDERS: ATTEND Internal Medicine Cardiovascular Disease
DX: T82.6XXD Infection and inflammatory reaction due to cardiac valve prosthesis, subsequent encounter (principal); Z51.81 Encounter for therapeutic drug level monitoring; Z79.01 Long term (current) use of anticoagulants
CPT/HCPCS: 36415; 85610

== ENCOUNTER → 2017-11-11 | Outpatient (CLI) | payer MEDICARE, OTHER ==
[2017-08-13 11:14] VITALS: BMI 26.9
[2017-11-11 09:03] LABS: INR 2.7
== END ==
LOC: LAB 08:42
PROVIDERS: ATTEND Internal Medicine Cardiovascular Disease
DX: T82.6XXD Infection and inflammatory reaction due to cardiac valve prosthesis, subsequent encounter (principal); Z51.81 Encounter for therapeutic drug level monitoring; Z79.01 Long term (current) use of anticoagulants
CPT/HCPCS: 36415; 85610

== ENCOUNTER → 2017-11-25 | Outpatient (CLI) | payer MEDICARE, OTHER ==
[2017-08-13 11:14] VITALS: BMI 26.9
[2017-11-25 08:59] LABS: INR 3.48
== END ==
LOC: LAB 08:36
PROVIDERS: ATTEND Internal Medicine Cardiovascular Disease
DX: Z51.81 Encounter for therapeutic drug level monitoring (principal); Z79.01 Long term (current) use of anticoagulants; T82.6XXD Infection and inflammatory reaction due to cardiac valve prosthesis, subsequent encounter
CPT/HCPCS: 36415; 85610

== ENCOUNTER → 2017-12-05 | Outpatient (CLI) | payer MEDICARE, OTHER ==
[2017-08-13 11:14] VITALS: BMI 26.9
== END ==
LOC: LAB 10:21
PROVIDERS: ATTEND Surgery Vascular Surgery
DX: I35.8 Other nonrheumatic aortic valve disorders (principal); Z95.2 Presence of prosthetic heart valve; T82.03XA Leakage of heart valve prosthesis, initial encounter
CPT/HCPCS: 36415; 87040

== ENCOUNTER → 2017-12-09 | Outpatient (CLI) | payer MEDICARE, OTHER ==
[2017-08-13 11:14] VITALS: BMI 26.9
[2017-12-09 09:07] LABS: INR 2.2
== END ==
LOC: LAB 08:44
PROVIDERS: ATTEND Internal Medicine Cardiovascular Disease
DX: Z51.81 Encounter for therapeutic drug level monitoring (principal); T82.6XXD Infection and inflammatory reaction due to cardiac valve prosthesis, subsequent encounter; Z79.01 Long term (current) use of anticoagulants
CPT/HCPCS: 36415; 85610

== ENCOUNTER → 2017-12-16 | Outpatient (CLI) | payer MEDICARE, OTHER ==
[2017-08-13 11:14] VITALS: BMI 26.9
[2017-12-16 08:58] LABS: INR 2.61
== END ==
LOC: LAB 08:37
PROVIDERS: ATTEND Internal Medicine Cardiovascular Disease
DX: Z51.81 Encounter for therapeutic drug level monitoring (principal); Z79.01 Long term (current) use of anticoagulants; T82.6XXD Infection and inflammatory reaction due to cardiac valve prosthesis, subsequent encounter
CPT/HCPCS: 36415; 85610

== ENCOUNTER 2017-12-23 09:00 | Outpatient (RCR) | payer MEDICARE, OTHER ==
[2017-08-13 11:14] VITALS: BMI 26.9
[2017-09-26 12:06] VITALS: BP_SYST 130; BP_SYST 138; BP_DIAS 80; BP_DIAS 86
--- NOTE | 2017-09-26 12:34 | CARDIAC REHAB PLAN OF CARE ---
Physician: Bryan Swenson MD Patient is being seen: Sabine Escalona Medical Diagnosis: Endocarditis (Hx); AVR; NSTEMI Date of Onset: 08/20/17 Date of Initial Evaluation: 09/26/17 INTERVENTIONS: Due Date: 10/27/17 Short Term Goals: Patient Assessment: Patient comes to cardiac rehab following cardiac events: Endocarditis requiring a AVR replacement (previously replaced in 2009) and a NSTEMI; Patient also has a history of A-fib, which he is currently being treated for; Type-2 Diabetes; previous TIA in 2008; Hypertension; and High cholesterol. He also has a significant family history of heart disease. He does not have a well monitored diet and is currently sedentary. Exercise Assessment: Patient performed well during the 6-Minute Walk Test; Walking a total of 1475ft at 2.8mph. His heart rate remained between 80-90bpm during his bike and treadmill exercise with SPO2 remaining above 92%. He commonly reported his RPE between 5-7 with MET levels between 3-3.5.BP responded normally. Exercise Plan: Goals: Goals over the program will include increasing the patient's tolerance of exercise. We will gradually increase duration of exercise first, aiming for 150 min/week. We will follow this by increasing intensity. He is currently exercising at 3-3.5 METs and will aim to be close to 6 METs by the end of the program. It is the patient's goal to become more physically active, so we will educate on the importance and benefits of leisure activity as well. Exercise Prescription: Mode: Upright biking and Treadmill Frequency: 3 days/week (MWF) Duration: We will begin the first month with 20-25 minutes of total exercise split between the bike and treadmill. Intensity: THR: 80-90bpm; RPE 5-6 Education: Our primary education will be about leisure activity and the importance of exercising/being physically active throughout the whole day. 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 Exercise Reassessment (Date: ): Exercise Discharge/Follow-Up (Date: ): Nutrition Assessment: Patient does not currently have much knowledge about proper nutrition--particularly not for a diabetic with CAD. What knowledge he does possess he does not apply to his current diet. The patient reports "He eats whatever he wants" including lots of meat, pastries, and sugary drinks ( Gatorade and smoothies). He currently does not appear to appreciate the need for a healthy diet. Nutrition Plan: Goals: Our primary goal will be to create a sense of value within the patient to eat healthy. He needs to value eating a healthy diet first before he can start making changes. Once that is established it will be our first behavior change to cut out the excess sugar and carbs followed by incorporating vegetables and whole grains. Intervention: Our intervention will include educational information and hopefully getting his spouse involved in the planning. This information needs to be addressed on a daily basis--particularly towards his needs to address his CAD and diabetes and how diet can play a role in their management. Education: Education will focus on disease management for high cholesterol and diabetes. Nutrition Reassessment (Date: ): Nutrition Discharge/Follow-Up (Date: ): Psychosocial Assessment: Patient appears to not have any reported depression or anxiety as reaffirmed by the HADs scale. However, patient does appear to be living in a state of denial about his current health status--making light or ignoring tucker chronic disease diagnosis he has. Psychosocial Plan: Goals: Goals will be to make the patient understand fully his health history and current status and how his behaviors add to it and may hinder his overall health. Intervention: Our plan will be to educate the patient as often and in as friendly way we possibly can. This need to be brought up on a most daily basis- -both the extent of his conditions as well as how they can be altered for the better with simple behavior changes. Education: Education will focus towards the management, causes, and side- effects of CAD (including HTN and high cholesterol) and diabetes. Psychosocial Reassessment (Date: ): Psychosocial Discharge/Follow-Up (Date: ): Physician Signature: Date: MTDD
[2017-10-02 12:58] VITALS: BP 168/82
[2017-10-02 12:59] VITALS: BP 150/80
[2017-10-04 13:35] VITALS: BP 128/80
[2017-10-04 13:36] VITALS: BP 128/78
[2017-10-07 16:52] VITALS: BP 138/74
[2017-10-07 16:53] VITALS: BP 122/82
[2017-10-09 13:35] VITALS: BP 132/74
[2017-10-09 13:36] VITALS: BP 130/78
[2017-10-11 13:05] VITALS: BP 132/73
[2017-10-11 13:06] VITALS: BP 110/72
[2017-10-21 13:05] VITALS: BP 124/64
[2017-10-21 13:06] VITALS: BP 132/72
[2017-10-23 13:25] VITALS: BP 124/58
[2017-10-23 13:26] VITALS: BP 120/70
[2017-10-25 13:01] VITALS: BP_SYST 120; BP_SYST 130; BP_DIAS 68; BP_DIAS 70
[2017-10-28 13:02] VITALS: BP_SYST 120; BP_SYST 126; BP_DIAS 64; BP_DIAS 68
--- NOTE | 2017-10-29 10:25 | CARDIAC REHAB PLAN OF CARE ---
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 He also has a significant family history of heart disease. He does not have a well monitored diet and is currently sedentary. Exercise Assessment: Patient performed well during the 6-Minute Walk Test; Walking a total of 1475ft at 2.8mph. His heart rate remained between 80-90bpm during his bike and treadmill exercise with SPO2 remaining above 92%. He commonly reported his RPE between 5-7 with MET levels between 3-3.5.BP responded normally. Exercise Plan: Goals: Goals over the program will include increasing the patient's tolerance of exercise. We will gradually increase duration of exercise first, aiming for 150 min/week. We will follow this by increasing intensity. He is currently exercising at 3-3.5 METs and will aim to be close to 6 METs by the end of the program. It is the patient's goal to become more physically active, so we will educate on the importance and benefits of leisure activity as well. Exercise Prescription: Mode: Upright biking and Treadmill Frequency: 3 days/week (MWF) Duration: We will begin the first month with 20-25 minutes of total exercise split between the bike and treadmill. Intensity: THR: 80-90bpm; RPE 5-6 Education: Our primary education will be about leisure activity and the importance of exercising/being physically active throughout the whole day. 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 Exercise Reassessment (Date: 10/29/17): The patient has been relatively inconsistent with attending his cardiac rehab sessions, missing 4 in the past month. However, he has been successful in achieving his previous goals. He has achieved, on average, 40-45 minutes of exercise within his prescribed exercise intensity. His average HR has been 85-95bpm with it increasing to higher levels the past few sessions. His blood pressure response has been WNL, suggesting that we can increase his target HR range. Over the next month his goals will be to increase exercise intensity while maintaining the same duration of exercise. HR Range: 90-110bpm pending normal blood pressure response and SPO2 remains above 90%. Over the next month it will be the patients goal to achieve, on average, MET levels 4.0-4.5 on average. Exercise Discharge/Follow-Up (Date: ): Nutrition Assessment: Patient does not currently have much knowledge about proper nutrition--particularly not for a diabetic with CAD. What knowledge he does possess he does not apply to his current diet. The patient reports "He eats whatever he wants" including lots of meat, pastries, and sugary drinks (gatorade and smoothies). He currently does not appear to appreciate the need for a healthy diet. Nutrition Plan: Goals: Our primary goal will be to create a sense of value within the patient to eat healthy. He needs to value eating a healthy diet first before he can start making changes. Once that is established it will be our first behavior change to cut out the excess sugar and carbs followed by incorporating vegetables and whole grains. Intervention: Our intervention will include educational information and hopefully getting his spouse involved in the planning. This information needs to be addressed on a daily basis--particularly towards his needs to address his CAD and diabetes and how diet can play a role in their management. Education: Education will focus on disease management for high cholesterol and diabetes. Nutrition Reassessment (Date: 10/29/17): We are unaware at this time of any improvements made in the patients dietary habits. Prior to his involvement in the CR program, the patient was in the pre-contemplative state of behavior change in relation to his nutrition and diet. It is our goal over the next month to help him make the transition to the contemplative state, where he is valuing the idea of dietary changes and understanding the importance of healthy eating in his life and his cardiac conditions. To do this it is best that we regularly check on him during his sessions to create a sense of individual responsibility and consistency. Nutrition Discharge/Follow-Up (Date: ): Psychosocial Assessment: Patient appears to not have any reported depression or anxiety as reaffirmed by the HADs scale. However, patient does appear to be living in a state of denial about his current health status--making light or ignoring tucker chronic disease diagnosis he has. Psychosocial Plan: Goals: Goals will be to make the patient understand fully his health history and current status and how his behaviors add to it and may hinder his overall health. Intervention: Our plan will be to educate the patient as often and in as friendly way we possibly can. This need to be brought up on a most daily basis--both the extent of his conditions as well as how they can be altered for the better with simple behavior changes. Education: Education will focus towards the management, causes, and side- effects of CAD (including HTN and high cholesterol) and diabetes. Psychosocial Reassessment (Date: 10/29/17): We are unaware at this time about any improvement in the patients understanding of his health status. It does appear that he is beginning to see the value of cardiac rehab and reaping of some of the benefits associated with it. However, it is important that he understand the extend of his health and recent cardiac events as well as how diet, exercise, and behavior modifications has help improve them for the future. We will attempt to discuss this information with the patient more regularly. Psychosocial Discharge/Follow-Up (Date: ): Physician Signature: Date: MTDD
[2017-10-30 12:58] VITALS: BP 122/80
[2017-10-30 12:59] VITALS: BP 112/70
[2017-11-01 17:18] VITALS: BP 112/76
[2017-11-01 17:19] VITALS: BP 108/62
[2017-11-04 13:45] VITALS: BP 138/62
[2017-11-04 13:46] VITALS: BP 118/76
[2017-11-06 13:34] VITALS: BP 124/70
[2017-11-06 13:35] VITALS: BP 98/62
[2017-11-08 13:00] VITALS: BP_SYST 122; BP_SYST 126; BP_DIAS 60; BP_DIAS 64
[2017-11-11 13:16] VITALS: BP_SYST 122; BP_SYST 128; BP_DIAS 62; BP_DIAS 68
[2017-11-15 16:32] VITALS: BP 112/60
[2017-11-15 16:33] VITALS: BP 100/62
[2017-11-20 17:00] VITALS: BP 120/68
[2017-11-20 17:01] VITALS: BP 110/70
[2017-11-22 12:53] VITALS: BP 114/68
[2017-11-22 12:54] VITALS: BP 106/68
[2017-11-25 13:23] VITALS: BP 112/68
[2017-11-25 13:24] VITALS: BP 108/64
--- NOTE | 2017-11-26 11:35 | CARDIAC REHAB PLAN OF CARE ---
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 He also has a significant family history of heart disease. He does not have a well monitored diet and is currently sedentary. Exercise Assessment: Patient performed well during the 6-Minute Walk Test; Walking a total of 1475ft at 2.8mph. His heart rate remained between 80-90bpm during his bike and treadmill exercise with SPO2 remaining above 92%. He commonly reported his RPE between 5-7 with MET levels between 3-3.5.BP responded normally. Exercise Plan: Goals: Goals over the program will include increasing the patient's tolerance of exercise. We will gradually increase duration of exercise first, aiming for 150 min/week. We will follow this by increasing intensity. He is currently exercising at 3-3.5 METs and will aim to be close to 6 METs by the end of the program. It is the patient's goal to become more physically active, so we will educate on the importance and benefits of leisure activity as well. Exercise Prescription: Mode: Upright biking and Treadmill Frequency: 3 days/week (MWF) Duration: We will begin the first month with 20-25 minutes of total exercise split between the bike and treadmill. Intensity: THR: 80-90bpm; RPE 5-6 Education: Our primary education will be about leisure activity and the importance of exercising/being physically active throughout the whole day. 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 Exercise Reassessment (Date: 10/29/17): The patient has been relatively inconsistent with attending his cardiac rehab sessions, missing 4 in the past month. However, he has been successful in achieving his previous goals. He has achieved, on average, 40-45 minutes of exercise within his prescribed exercise intensity. His average HR has been 85-95bpm with it increasing to higher levels the past few sessions. His blood pressure response has been WNL, suggesting that we can increase his target HR range. Over the next month his goals will be to increase exercise intensity while maintaining the same duration of exercise. HR Range: 90-110bpm pending normal blood pressure response and SPO2 remains above 90%. Over the next month it will be the patients goal to achieve, on average, MET levels 4.0-4.5 on average. Exercise Reassessment (Date: 11/26/17): The patient has become much more consistent at attending his cardiac rehab exercise sessionsmissing very rarely this past month. He has exceeded with THR zone with proper BP response being within normal limits. He has maintained his goal of at least 45 minutes of exercise per session (averaging 45-50min/session) and has increased his intensity to 4.3-5.0METs on average. This is great progress and we hope to continue on this same path over the next month. His new THR will be 100-115bpm so as to continue increasing the intensity of his exercise sessions. This is to be instilled pending normal and consistent hemodynamic responses. Exercise Discharge/Follow-Up (Date: ): Nutrition Assessment: Patient does not currently have much knowledge about proper nutrition--particularly not for a diabetic with CAD. What knowledge he does possess he does not apply to his current diet. The patient reports "He eats whatever he wants" including lots of meat, pastries, and sugary drinks (gatorade and smoothies). He currently does not appear to appreciate the need for a healthy diet. Nutrition Plan: Goals: Our primary goal will be to create a sense of value within the patient to eat healthy. He needs to value eating a healthy diet first before he can start making changes. Once that is established it will be our first behavior change to cut out the excess sugar and carbs followed by incorporating vegetables and whole grains. Intervention: Our intervention will include educational information and hopefully getting his spouse involved in the planning. This information needs to be addressed on a daily basis--particularly towards his needs to address his CAD and diabetes and how diet can play a role in their management. Education: Education will focus on disease management for high cholesterol and diabetes. Nutrition Reassessment (Date: 10/29/17): We are unaware at this time of any improvements made in the patients dietary habits. Prior to his involvement in the CR program, the patient was in the pre-contemplative state of behavior change in relation to his nutrition and diet. It is our goal over the next month to help him make the transition to the contemplative state, where he is valuing the idea of dietary changes and understanding the importance of healthy eating in his life and his cardiac conditions. To do this it is best that we regularly check on him during his sessions to create a sense of individual responsibility and consistency. Nutrition Reassessment (Date: 11/26/17): The patient was given clear goals this past month of simply paying attention to the foods that he eats so as to be aware of his caloric consumption and what it is composed of. Upon discussing this with the patient little progress has been made in this behavior change. We will continue on this over the next month and try to instill some other methods to involve the patient more in his planned dietary changes. It is evident though that he is aware that diet is important and something to value and respect health blue. Nutrition Discharge/Follow-Up (Date: ): Psychosocial Assessment: Patient appears to not have any reported depression or anxiety as reaffirmed by the HADs scale. However, patient does appear to be living in a state of denial about his current health status--making light or ignoring tucker chronic disease diagnosis he has. Psychosocial Plan: Goals: Goals will be to make the patient understand fully his health history and current status and how his behaviors add to it and may hinder his overall health. Intervention: Our plan will be to educate the patient as often and in as friendly way we possibly can. This need to be brought up on a most daily basis--both the extent of his conditions as well as how they can be altered for the better with simple behavior changes. Education: Education will focus towards the management, causes, and side- effects of CAD (including HTN and high cholesterol) and diabetes. Psychosocial Reassessment (Date: 10/29/17): We are unaware at this time about any improvement in the patients understanding of his health status. It does appear that he is beginning to see the value of cardiac rehab and reaping of some of the benefits associated with it. However, it is important that he understand the extend of his health and recent cardiac events as well as how diet, exercise, and behavior modifications has help improve them for the future. We will attempt to discuss this information with the patient more regularly. Psychosocial Reassessment (Date: 11/26/17): No update from the previous care plan. The patient has defininetly become more consistent at his rehab attendance and always appears to be in an uplifted mood when here. He has vocalized his appreciation for the program and does appear to value the importance of healthy behavior changes (e.g. diet and exercise). However, I am skeptical at this time that these will be lasting behavior changes following his discharge from the program. Our goal is to help him have the motivation to continue along a healthy path after he is done with the program. Psychosocial Discharge/Follow-Up (Date: ): Physician Signature: Date: MTDD
[2017-11-29 17:05] VITALS: BP 122/68
[2017-11-29 17:06] VITALS: BP 108/84
[2017-12-04 13:39] VITALS: BP 124/66
[2017-12-04 13:40] VITALS: BP 102/64
[2017-12-06 13:04] VITALS: BP 110/64
[2017-12-06 13:05] VITALS: BP 120/70
[2017-12-09 13:20] VITALS: BP_SYST 136; BP_SYST 98; BP_DIAS 60; BP_DIAS 62
[2017-12-11 13:22] VITALS: BP 118/70
[2017-12-11 13:23] VITALS: BP 120/70
[2017-12-16 16:45] VITALS: BP 124/64
[2017-12-16 16:46] VITALS: BP 112/72
[2017-12-20 13:09] VITALS: BP 126/72
[2017-12-20 13:10] VITALS: BP 116/74
[2017-12-23 13:05] VITALS: BP 132/70
[2017-12-23 13:06] VITALS: BP 110/66
== END 2017-12-25 ==
LOC: CARD 09:00
PROVIDERS: ATTEND Thoracic Surgery (Cardiothoracic Vascular Surgery)
DX: Z95.2 Presence of prosthetic heart valve (principal); I25.2 Old myocardial infarction; I48.91 Unspecified atrial fibrillation; Z86.79 Personal history of other diseases of the circulatory system; E11.9 Type 2 diabetes mellitus without complications; I10 Essential (primary) hypertension; Z86.73 Personal history of transient ischemic attack (TIA), and cerebral infarction without residual deficits; E78.00 Pure hypercholesterolemia, unspecified; Z82.49 Family history of ischemic heart disease and other diseases of the circulatory system
CPT/HCPCS: 93798

== ENCOUNTER → 2017-12-30 | Outpatient (CLI) | payer MEDICARE, OTHER ==
[2017-08-13 11:14] VITALS: BMI 26.9
== END ==
LOC: LAB 09:51
PROVIDERS: ATTEND Nurse Practitioner Family
DX: E03.9 Hypothyroidism, unspecified (principal); R73.03 Prediabetes
CPT/HCPCS: 82947; 83036; 84443

== ENCOUNTER → 2017-12-30 | Outpatient (CLI) | payer MEDICARE, OTHER ==
[2017-08-13 11:14] VITALS: BMI 26.9
[2017-12-30 08:55] LABS: INR 2.54
== END ==
LOC: LAB 08:06
PROVIDERS: ATTEND Internal Medicine Cardiovascular Disease
DX: Z51.81 Encounter for therapeutic drug level monitoring (principal); Z79.01 Long term (current) use of anticoagulants; T82.6XXD Infection and inflammatory reaction due to cardiac valve prosthesis, subsequent encounter
CPT/HCPCS: 36415; 82465; 83718; 84478; 85610

== ENCOUNTER → 2017-12-30 | Outpatient (CLI) | payer MEDICARE, OTHER ==
[2017-08-13 11:14] VITALS: BMI 26.9
== END ==
LOC: LAB 08:10
PROVIDERS: ATTEND Surgery Vascular Surgery
DX: I35.9 Nonrheumatic aortic valve disorder, unspecified (principal); Z95.2 Presence of prosthetic heart valve; T82.03XA Leakage of heart valve prosthesis, initial encounter

== ENCOUNTER → 2018-01-20 | Outpatient (CLI) | payer MEDICARE, OTHER ==
[2017-08-13 11:14] VITALS: BMI 26.9
[2018-01-20 08:48] LABS: INR 2.08
== END ==
LOC: LAB 08:18
PROVIDERS: ATTEND Internal Medicine Cardiovascular Disease
DX: Z51.81 Encounter for therapeutic drug level monitoring (principal); Z79.01 Long term (current) use of anticoagulants; T82.6XXD Infection and inflammatory reaction due to cardiac valve prosthesis, subsequent encounter
CPT/HCPCS: 36415; 85610

== ENCOUNTER → 2018-02-13 | Outpatient (CLI) | payer MEDICARE, OTHER ==
[2017-08-13 11:14] VITALS: BMI 26.9
[~2018-02-13] MED LIST changes: +DOCU-416 PO; +OXYC-854 PO
[2018-02-13 10:05] LABS: INR 2.39
== END ==
LOC: LAB 09:36
PROVIDERS: ATTEND Internal Medicine Cardiovascular Disease
DX: Z51.81 Encounter for therapeutic drug level monitoring (principal); Z79.01 Long term (current) use of anticoagulants; T82.6XXD Infection and inflammatory reaction due to cardiac valve prosthesis, subsequent encounter
CPT/HCPCS: 36415; 85610

== ENCOUNTER → 2018-02-19 | Outpatient (CLI) | payer MEDICARE, OTHER ==
[2017-08-13 11:14] VITALS: BMI 26.9
== END ==
LOC: LAB 08:01
DX: T82.6XXD Infection and inflammatory reaction due to cardiac valve prosthesis, subsequent encounter (principal); I35.8 Other nonrheumatic aortic valve disorders
CPT/HCPCS: 36415; 82040; 82247; 82310; 82374; 82435; 82565; 82947; 84075; 84132; 84155; 84295; 84450; 84460; 84520; 86140

== ENCOUNTER → 2018-02-26 | Outpatient (CLI) | payer MEDICARE, OTHER ==
[2017-08-13 11:14] VITALS: BMI 26.9
[~2018-02-26] MED LIST changes: -AMLO-113 PO; +AMLO-127 PO
[2018-02-26 09:36] LABS: PLATELET COUNT, AUTOMATED 286 K/uL (150-450)
== END ==
LOC: LAB 09:21
PROVIDERS: ATTEND Nurse Practitioner Family
DX: D64.9 Anemia, unspecified (principal); E03.9 Hypothyroidism, unspecified; E78.5 Hyperlipidemia, unspecified; R79.89 Other specified abnormal findings of blood chemistry
CPT/HCPCS: 36415; 82040; 82247; 82310; 82374; 82435; 82565; 82728; 82947; 83540; 83550; 84075; 84132; 84155; 84295; 84443; 84450; 84460; 84520; 85025

== ENCOUNTER → 2018-03-17 | Outpatient (CLI) | payer MEDICARE, OTHER ==
[2017-08-13 11:14] VITALS: BMI 26.9
[~2018-03-17] MED LIST changes: +OCUVITE SOFTGE1 EACH PO; -VIT1CAPS33 PO
== END ==
LOC: LAB 08:02
PROVIDERS: ATTEND Internal Medicine Infectious Disease
DX: T82.6XXD Infection and inflammatory reaction due to cardiac valve prosthesis, subsequent encounter (principal)
CPT/HCPCS: 87040

== ENCOUNTER → 2018-03-17 | Outpatient (CLI) | payer MEDICARE, OTHER ==
[2017-08-13 11:14] VITALS: BMI 26.9
[~2018-03-17] MED LIST changes: -OCUVITE SOFTGE1 EACH PO; +VIT1CAPS33 PO
[2018-03-17 08:48] LABS: INR 3.2
== END ==
LOC: LAB 07:59
PROVIDERS: ATTEND Internal Medicine Cardiovascular Disease
DX: Z51.81 Encounter for therapeutic drug level monitoring (principal); Z79.01 Long term (current) use of anticoagulants; T82.6XXD Infection and inflammatory reaction due to cardiac valve prosthesis, subsequent encounter
CPT/HCPCS: 36415; 85610

== ENCOUNTER → 2018-04-01 | Outpatient (CLI) | payer MEDICARE, OTHER ==
[2017-08-13 11:14] VITALS: BMI 26.9
[~2018-04-01] MED LIST changes: +OCUVITE SOFTGE1 EACH PO; -VIT1CAPS33 PO
== END ==
LOC: LAB 08:21
PROVIDERS: ATTEND Surgery Vascular Surgery
DX: I35.8 Other nonrheumatic aortic valve disorders (principal); T82.03XA Leakage of heart valve prosthesis, initial encounter; Z95.2 Presence of prosthetic heart valve
CPT/HCPCS: 87040

== ENCOUNTER → 2018-04-01 | Outpatient (CLI) | payer MEDICARE, OTHER ==
[2017-08-13 11:14] VITALS: BMI 26.9
[2018-04-01 09:07] LABS: INR 2.29
== END ==
LOC: LAB 08:24
PROVIDERS: ATTEND Internal Medicine Cardiovascular Disease
DX: T82.6XXD Infection and inflammatory reaction due to cardiac valve prosthesis, subsequent encounter (principal); Z51.81 Encounter for therapeutic drug level monitoring; Z79.01 Long term (current) use of anticoagulants
CPT/HCPCS: 36415; 85610

== ENCOUNTER → 2018-04-22 | Outpatient (CLI) | payer MEDICARE, OTHER ==
[2017-08-13 11:14] VITALS: BMI 26.9
== END ==
LOC: LAB 08:02
PROVIDERS: ATTEND Internal Medicine Infectious Disease
DX: T82.6XXD Infection and inflammatory reaction due to cardiac valve prosthesis, subsequent encounter (principal); I35.8 Other nonrheumatic aortic valve disorders
CPT/HCPCS: 36415; 82040; 82247; 82310; 82374; 82435; 82565; 82947; 84075; 84132; 84155; 84295; 84450; 84460; 84520; 86140; 87040

== ENCOUNTER → 2018-04-25 | Outpatient (CLI) | payer MEDICARE, OTHER ==
[2017-08-13 11:14] VITALS: BMI 26.9
[2018-04-25 08:34] LABS: INR 4.13
== END ==
LOC: LAB 08:00
PROVIDERS: ATTEND Internal Medicine Cardiovascular Disease
DX: Z51.81 Encounter for therapeutic drug level monitoring (principal); Z79.01 Long term (current) use of anticoagulants; T82.6XXD Infection and inflammatory reaction due to cardiac valve prosthesis, subsequent encounter
CPT/HCPCS: 36415; 85610

== ENCOUNTER → 2018-05-05 | Outpatient (CLI) | payer MEDICARE, OTHER ==
[2017-08-13 11:14] VITALS: BMI 26.9
[2018-05-05 10:26] LABS: INR 2.88
== END ==
LOC: LAB 09:54
PROVIDERS: ATTEND Internal Medicine Cardiovascular Disease
DX: Z51.81 Encounter for therapeutic drug level monitoring (principal); Z79.01 Long term (current) use of anticoagulants; T82.6XXD Infection and inflammatory reaction due to cardiac valve prosthesis, subsequent encounter
CPT/HCPCS: 36415; 85610

== ENCOUNTER → 2018-05-08 | Outpatient (CLI) | payer MEDICARE, OTHER ==
[2017-08-13 11:14] VITALS: BMI 26.9
== END ==
LOC: LAB 08:02
PROVIDERS: ATTEND Internal Medicine Infectious Disease
DX: T82.6XXD Infection and inflammatory reaction due to cardiac valve prosthesis, subsequent encounter (principal)
CPT/HCPCS: 36415; 87040

== ENCOUNTER → 2018-05-20 | Outpatient (CLI) | payer MEDICARE, OTHER ==
[2017-08-13 11:14] VITALS: BMI 26.9
[2018-05-20 08:44] LABS: INR 2.78
== END ==
LOC: LAB 08:01
PROVIDERS: ATTEND Internal Medicine Cardiovascular Disease
DX: T82.6XXD Infection and inflammatory reaction due to cardiac valve prosthesis, subsequent encounter (principal); Z51.81 Encounter for therapeutic drug level monitoring; Z79.01 Long term (current) use of anticoagulants
CPT/HCPCS: 36415; 85610

== ENCOUNTER → 2018-05-20 | Outpatient (CLI) | payer MEDICARE, OTHER ==
[2017-08-13 11:14] VITALS: BMI 26.9
== END ==
LOC: LAB 07:59
PROVIDERS: ATTEND Internal Medicine Infectious Disease
DX: R78.81 Bacteremia (principal); T82.6XXD Infection and inflammatory reaction due to cardiac valve prosthesis, subsequent encounter; I38 Endocarditis, valve unspecified
CPT/HCPCS: 36415; 87040

== ENCOUNTER → 2018-06-09 | Outpatient (CLI) | payer MEDICARE, OTHER ==
[2017-08-13 11:14] VITALS: BMI 26.9
== END ==
LOC: LAB 12:21
PROVIDERS: ATTEND Internal Medicine Infectious Disease
DX: R78.81 Bacteremia (principal); T82.6XXD Infection and inflammatory reaction due to cardiac valve prosthesis, subsequent encounter
CPT/HCPCS: 36415; 87040

== ENCOUNTER → 2018-06-09 | Outpatient (CLI) | payer MEDICARE, OTHER ==
[2017-08-13 11:14] VITALS: BMI 26.9
[2018-06-09 13:08] LABS: INR 3.03
== END ==
LOC: LAB 12:53
PROVIDERS: ATTEND Internal Medicine Cardiovascular Disease
DX: Z51.81 Encounter for therapeutic drug level monitoring (principal); T82.6XXD Infection and inflammatory reaction due to cardiac valve prosthesis, subsequent encounter; Z79.01 Long term (current) use of anticoagulants
CPT/HCPCS: 85610

== ENCOUNTER → 2018-06-23 | Outpatient (CLI) | payer MEDICARE, OTHER ==
[2017-08-13 11:14] VITALS: BMI 26.9
== END ==
LOC: LAB 10:10
PROVIDERS: ATTEND Internal Medicine Infectious Disease
DX: R78.81 Bacteremia (principal); T82.6XXD Infection and inflammatory reaction due to cardiac valve prosthesis, subsequent encounter; I38 Endocarditis, valve unspecified
CPT/HCPCS: 36415; 87040

== ENCOUNTER → 2018-06-23 | Outpatient (CLI) | payer MEDICARE, OTHER ==
[2017-08-13 11:14] VITALS: BMI 26.9
[2018-06-23 11:14] LABS: INR 2.57
== END ==
LOC: LAB 10:13
PROVIDERS: ATTEND Internal Medicine Cardiovascular Disease
DX: I25.10 Atherosclerotic heart disease of native coronary artery without angina pectoris (principal); T82.6XXD Infection and inflammatory reaction due to cardiac valve prosthesis, subsequent encounter; Z51.81 Encounter for therapeutic drug level monitoring; Z79.01 Long term (current) use of anticoagulants
CPT/HCPCS: 82040; 82247; 82310; 82374; 82435; 82465; 82565; 82947; 83718; 84075; 84132; 84155; 84295; 84450; 84460; 84478; 84520; 85610

== ENCOUNTER → 2018-06-24 | Outpatient (CLI) | payer MEDICARE, OTHER ==
[2017-08-13 11:14] VITALS: BMI 26.9
[2018-06-24 18:24] LABS: PLATELET COUNT, AUTOMATED 255 K/uL (150-450)
--- NOTE | 2018-06-24 18:40 | RADIOLOGY IMAGING REPORT ---
[place] [facility] [place] NAME[place] Rafiq Gunter : 1945 MR: [id number] V: [id number] EXAM DATE: ORDERING PHYSICIAN: ALIZE ALDRIDGE TECHNOLOGIST: Location: [facility] Patient: Rafiq Gunter : 1945 Visit/Account:[id number] Date of Sevice: 06/24/2018 CHEST PA LAT HISTORY: Cough. History of aortic valve replacement and infection. COMPARISON: Chest x-ray August 12, 2017. FINDINGS: Cardiomediastinal contours: There has been sternotomy for aortic valve replacement. Lungs and pleura: There is no finding of an infiltrate, lymphadenopathy or pleural effusion. There is mild flattening of the diaphragms. Bones/soft tissues: Status post sternotomy. IMPRESSION: 1. Status post sternotomy for aortic valve replacement. 2. No findings of an infiltrate. 3. Mild flattening of the diaphragms. Report Dictated By: Bryan Page MD at 06/24/2018 6:35 PM Report E-Signed By: Bryan Page MD at 06/24/2018 6:36 PM WSN:[id number]
== END ==
LOC: RAD 17:51
PROVIDERS: ATTEND Nurse Practitioner Family
DX: R50.9 Fever, unspecified (principal); R05 Cough; J06.9 Acute upper respiratory infection, unspecified; I51.89 Other ill-defined heart diseases
CPT/HCPCS: 36415; 71046; 82040; 82247; 82310; 82374; 82435; 82565; 82947; 84075; 84132; 84155; 84295; 84450; 84460; 84520; 85025; 87040

== ENCOUNTER → 2018-07-04 | Outpatient (CLI) | payer MEDICARE, OTHER ==
[2017-08-13 11:14] VITALS: BMI 26.9
== END ==
LOC: LAB 09:34
PROVIDERS: ATTEND Internal Medicine Cardiovascular Disease
DX: I25.10 Atherosclerotic heart disease of native coronary artery without angina pectoris (principal)
CPT/HCPCS: 36415; 82040; 82247; 82310; 82374; 82435; 82465; 82565; 82947; 83718; 84075; 84132; 84155; 84295; 84450; 84460; 84478; 84520